=== PATIENT | female | born 1950 | race Caucasian/White ===

== ENCOUNTER 2017-02-13 11:58 | Observation (INO) | payer MEDICARE, OTHER ==
[~2017-02-13] VITALS: Ht 152.4 cm; Wt 54.6 kg
[~2017-02-13 11:58] MED LIST: OMEP20TA PO
[2017-02-13 12:30] VITALS: BP 118/74; PULSE 101; RESP 17; TEMP 98.7; O2SAT 96
[2017-02-13] MEDS: D5-1/2 NS + KCL 20 MEQ INJ 1,000 ML IV SCH (14:14)
[2017-02-13] MEDS ORDERED: NALOXONE HCL 0.4 MG/ML AMP IV PRN (14:15)
[2017-02-13] MEDS ORDERED: ONDANSETRON HCL 4 MG/2 ML VIAL IVP PRN (14:15)
[2017-02-13] MEDS ORDERED: SODIUM CHLORIDE 0.9% FLUSH 10 ML FLUSH IV FLUSH PRN (14:15)
--- NOTE | 2017-02-13 15:12 | HHI.HP ---
HPI Service [facility] Primary Care Physician Non-Staff Admission Diagnosis Diagnoses: (1) GI bleed Chief Complaint: Rectal bleeding Travel History International Travel<30 Days: No Contact w/Intl Traveler <30 Da: No Traveled to Known Affected Are: No History of Present Illness 66-year-old female with a history of anxiety, rheumatoid arthritis was seen to the hospital for direct admit by PCP who she is going to see today for evaluation of 3 day history of bright red blood per rectum, which started on 02/10/17. She described right gross rectal in her stool as well as in the bowl.. She denies any prior history of GI bleed. Patient also denies any use of NSAID. She reported mild abdominal pain and she does have a history of GERD for which she is on omeprazole. She has no complaint of shortness of breath, hematuria, hematochezia or hemoptysis. No prior history of panendoscopy Review of Systems Except as stated in HPI: all other systems reviewed are Neg Past Family Social History Past Medical History Hypertension RA Anxiety DDD Past Surgical History Breast Reduction appendectomy Abdominoplasty Reported Medications Hydrochlorothiazide Omeprazole Allergies: Coded Allergies: Adhesives (Verified Allergy, Intermediate, Rash, 02/14/17) Family History Mother from complication of Lung cancer Father had [place] Social History Denies tobacco, alcohol or illicit drug Physical Exam Vital Signs Vital Signs Date Time Temp Pulse Resp B/P Pulse Ox O2 Delivery O2 Flow Rate FiO2 02/13/17 12:30 98.7 101 17 118/74 96 Physical Exam GENERAL: This is a well-nourished, well-developed patient, in no apparent distress. SKIN: No rashes, ecchymoses or lesions. Cool and dry. HEAD: Atraumatic. Normocephalic. No temporal or scalp tenderness. EYES: Pupils equal round and reactive. Extraocular motions intact. No scleral icterus. No injection or drainage. ENT: Nose without bleeding, purulent drainage or septal hematoma. Throat without erythema, tonsillar hypertrophy or exudate. Uvula midline. Airway patent. NECK: Trachea midline. No JVD or lymphadenopathy. Supple, nontender, no meningeal signs. CARDIOVASCULAR: Regular rate and rhythm without murmurs, gallops, or rubs. RESPIRATORY: Clear to auscultation. Breath sounds equal bilaterally. No wheezes , rales, or rhonchi. GASTROINTESTINAL: Abdomen soft, non-tender, nondistended. No hepato-splenomegaly , or palpable masses. No guarding. MUSCULOSKELETAL: Extremities without clubbing, cyanosis, or edema. No joint tenderness, effusion, or edema noted. No calf tenderness. Negative Homans sign bilaterally. NEUROLOGICAL: Awake and alert. Cranial nerves II through XII intact. Motor and sensory grossly within normal limits. Five out of 5 muscle strength in all muscle groups. Normal speech. Assessment and Plan Problem List: (1) GI bleed ICD Code: K92.2 Status: Acute (2) Rectal bleeding ICD Code: K62.5 Status: Acute (3) Depression ICD Code: F32.9 Status: Chronic (4) Hypertension ICD Code: I10 Status: Chronic Assessment and Plan 66 yrs old female with GI bleeding Rectal Bleeding GI consult for evaluation for Colonoscopy +/- EGD Serial H/H monitoring PPI IV Hypertension Resume outpatient medications including hydrochlorothiazide Anxiety/depression Resume outpatient medications DVT prophylaxis: Chemical anti prophylaxis is contraindication 2/2 GI bleeding; B-SCD GI prophylaxis: PPI Check CBC, BMP Code Status Full code Discussed Condition With Patient Physician Certification 2 Midnight Certification Type: Admission for Inpatient Services Order for Inpatient Services The services are ordered in accordance with Medicare regulations or non- Medicare payer requirements, as applicable. In the case of services not specified as inpatient-only, they are appropriately provided as inpatient services in accordance with the 2-midnight benchmark. Estimated LOS (days): 2 days is the estimated time the patient will need to remain in the hospital, assuming treatment plan goals are met and no additional complications. Post-Hospital Plan: Not yet determined Diego Duncan MD Feb 13, 2017 15:12
[2017-02-13] MEDS ORDERED: TEMAZEPAM 15 MG CAP PO PRN (15:15)
[2017-02-13] MEDS ORDERED: REME15TA PO (15:27)
[2017-02-13] MEDS ORDERED: PRIL20TA2 PO (15:27)
[2017-02-13] MEDS ORDERED: CLON0.5T PO (15:27)
[2017-02-13] MEDS ORDERED: ZOLO50TA PO (15:27)
[2017-02-13] MEDS ORDERED: HYDR25TA5 PO (15:27)
--- NOTE | 2017-02-13 15:39 | PD.CONS ---
HPI History of Present Illness This is a 66 year old female who was referred by her PCP and admitted for BRBPR. 4 days ago she began having bright red blood in stool and bowl, at times blood has been dark, is intermingled in stool. She has never had this before. She admits distant hx, 40y ago hemorrhoidal bleeding right after of her son but none since. Admits occasional nausea, reflux for which she takes omeprazole, and mid abdominal pain. The abdominal pain comes and goes, is sometimes relieved after BM. Occasional loose stool. She has lost 70 lbs inthe last year but she says she has been very busy and skipping alot of meals. No vomiting, tarry stool or change in bowel habit. She has never had EGD or colonoscopy. (Indira Deluna) PFSH Past Medical History Hypertension RA severe depression anxiety DDD Past Surgical History Breast Reduction appendectomy abdominoplasty - 20y ago (Indira Deluna) Coded Allergies: Fentanyl (Verified Adverse Reaction, Severe, Anaphylaxis, 03/30/16) Family History Mother from complication of Lung cancer Father had [place] Social History Denies tobacco, alcohol or illicit drug (Indira Deluna) Review of Systems Constitutional: DENIES: Fever Eyes: DENIES: Blurred vision Ears, nose, mouth, throat: DENIES: Hearing loss Respiratory: DENIES: Cough Cardiovascular: DENIES: Chest pain Gastrointestinal: COMPLAINS OF: Abdominal pain, Bloody stools, Nausea, Heartburn, DENIES: Black stools, Constipation, Diarrhea, Vomiting, Hematemesis Genitourinary: DENIES: Hematuria Musculoskeletal: DENIES: Muscle aches Integumentary: DENIES: Abnormal pigmentation Hematologic/lymphatic: DENIES: Bruising Neurologic: DENIES: Abnormal gait Psychiatric: DENIES: Confusion (Indira Deluna) GI Exam Vitals I&O Vital Signs Date Time Temp Pulse Resp B/P Pulse Ox O2 Delivery O2 Flow Rate FiO2 02/13/17 12:30 98.7 101 17 118/74 96 Physical Examination HEENT: PERRL normocephalic; atraumatic; no jaundice. CHEST: CTA CARDIAC: RRR ABDOMEN: Soft, nondistended, nontender; no hepatosplenomegaly; bowel sounds are present in all four quadrants. EXTREMITIES: No clubbing, cyanosis, or edema. SKIN: Normal; no rash; no jaundice. MINE PATROL: No focal deficits; alert and oriented times three. (Indira Deluna) Assessment and Plan Plan ASSESSMENT - rectal bleeding - onset 4d ago red blood in stool and bowl, no prev hx GIB, never had EGD or colonoscopy. No labs available yet. - mid abd pain - unclear etiology, intermittent, at times relieved with BM, chronic. PLAN - EGD/colonoscopy - GoLytely - clears today - obtain consents - NPO after midnight - await labwork - monitor HH - further recommendations to follow This pt seen by myself and Dr Vegas and this note is written on his behalf ( Indira Deluna) Physician Comments Patient seen and examined Agree with above Continue with current supportive care Monitor labs We will plan for an EGD and a colonoscopy tomorrow (Steve Vegas MD) Indira Deluna Feb 13, 2017 15:39 Steve Vegas MD Feb 13, 2017 23:38
[2017-02-13 16:00] VITALS: BP 115/77; PULSE 68; RESP 18; TEMP 97.6; O2SAT 99
[2017-02-13] MEDS ORDERED: PEG (High)/E-LYTE SOLN 4000 ML BTL PO ONE (16:00)
[2017-02-13] MEDS ORDERED: clonazePAM 0.5 MG TAB PO PRN (16:30)
[2017-02-13] MEDS ORDERED: PILL SPLITTER OTHER PRN (17:45)
[2017-02-13] MEDS: PANTOPRAZOLE SODIUM 40 MG VIAL IV PUSH SCH (18:19)
[2017-02-13 21:00] VITALS: BP 124/78; PULSE 82; RESP 18; TEMP 98.5; O2SAT 95
[2017-02-13] MEDS: SERTRALINE HCL 50 MG TAB PO SCH (21:00)
[2017-02-13] MEDS: SODIUM CHLORIDE 0.9% FLUSH 10 ML FLUSH IV FLUSH SCH (21:18)
[2017-02-13] MEDS: ACETAMINOPHEN 325 MG TAB PO PRN (21:19)
[2017-02-13] MEDS: MIRTAZAPINE 15 MG TAB PO SCH (21:19)
[2017-02-13 22:29] LABS: REVIEW FLAG FINAL
[2017-02-14 00:30] VITALS: BP 120/75; PULSE 80; RESP 19; TEMP 98.1; O2SAT 96
[2017-02-14] MEDS: D5-1/2 NS + KCL 20 MEQ INJ 1,000 ML IV SCH ×3 (00:35→20:43)
[2017-02-14 05:00] VITALS: BP 111/55; PULSE 71; RESP 17; TEMP 98.1; O2SAT 98
[2017-02-14 07:17] LABS: AUTOMATED NEUTROPHIL # 5.1 TH/MM3 (1.8-7.7); BASOPHIL # 0.1 TH/MM3 (0-0.2); BASOPHIL % 0.7 % (0.0-2.0); EOSINOPHIL # 0.4 TH/MM3 (0-0.4); HEMATOCRIT 30.4 % (35.0-46.0); HEMO FLAGS DIFF FINAL; LYMPHOCYTE # 1.7 TH/MM3 (1.0-4.8); MEAN CELL VOLUME 89.2 FL (80.0-100.0); MEAN CORPUSCULAR HEMOGLOBIN 30.2 PG (27.0-34.0); MEAN CORPUSCULAR HGB CONC 33.8 % (32.0-36.0); MONO % 6.4 % (0.0-8.0); NEUT % 65.9 % (16.0-70.0); PLATELET COUNT 274 TH/MM3 (150-450); RED BLOOD COUNT 3.41 MIL/MM3 (4.00-5.30); RED CELL DISTRIBUTION WIDTH 16.3 % (11.6-17.2); WHITE BLOOD COUNT 7.7 TH/MM3 (4.0-11.0)
[2017-02-14 07:39] LABS: BICARBONATE 31.1 MEQ/L (21.0-32.0); POTASSIUM 3.3 MEQ/L (3.5-5.1)
[2017-02-14] MEDS: SERTRALINE HCL 50 MG TAB PO SCH ×2 (07:52→20:44)
[2017-02-14] MEDS: HYDROCHLOROTHIAZIDE 25 MG TAB PO SCH (07:53)
[2017-02-14] MEDS: SODIUM CHLORIDE 0.9% FLUSH 10 ML FLUSH IV FLUSH SCH ×2 (07:54→20:43)
[2017-02-14 08:00] VITALS: BP 101/63; PULSE 77; RESP 18; TEMP 98.2; O2SAT 98
[2017-02-14 08:25] VITALS: PULSE 77
[2017-02-14] MEDS ORDERED: PNEUMOCOCCAL POLYVALENT INJ 25 MCG/0.5 ML SYR IM ONE (10:00)
[2017-02-14] MEDS ORDERED: INFLUENZA VIRUS VACCINE (QUADRIVALENT) 0.5 ML SYR IM ONE (10:00)
--- NOTE | 2017-02-14 11:24 | HHI.PR ---
Subjective Remarks Follow-up GI bleed 02/14/17-patient seen and examined; denies any GI episodes since admission. Currently nothing by mouth pending panendoscopy. Complains of back pain Objective Vitals Vital Signs Date Time Temp Pulse Resp B/P Pulse Ox O2 Delivery O2 Flow Rate FiO2 02/14/17 08:25 77 02/14/17 08:00 98.2 77 18 101/63 98 02/14/17 05:00 98.1 71 17 111/55 98 02/14/17 00:30 98.1 80 19 120/75 96 02/13/17 21:00 98.5 82 18 124/78 95 02/13/17 16:00 97.6 68 18 115/77 99 02/13/17 12:30 98.7 101 17 118/74 96 I/O 02/13/17 02/13/17 02/13/17 02/14/17 02/14/17 02/14/17 07:00 15:00 23:00 07:00 15:00 23:00 Intake Total 1000 ml 0 ml Output Total 1 ml Balance 1000 ml -1 ml Intake Oral 1000 ml 0 ml Output Urine Total 1 ml # Voids 4 1 # Bowel Movements 8 1 Result Diagram: 02/14/17 0656 02/14/17 0656 Objective Remarks GENERAL: NAD SKIN: Warm and dry. HEAD: Normocephalic. EYES: No scleral icterus. No injection or drainage. NECK: Supple, trachea midline. No JVD or lymphadenopathy. CARDIOVASCULAR: Regular rate and rhythm without murmurs, gallops, or rubs. RESPIRATORY: Breath sounds equal bilaterally. No accessory muscle use. GASTROINTESTINAL: Abdomen soft, non-tender, nondistended. MUSCULOSKELETAL: No cyanosis, or edema. BACK: Nontender without obvious deformity. No CVA tenderness. Procedures A/P Problem List: (1) GI bleed ICD Code: K92.2 Status: Acute (2) Rectal bleeding ICD Code: K62.5 Status: Acute (3) Depression ICD Code: F32.9 Status: Chronic (4) Hypertension ICD Code: I10 Status: Chronic Assessment and Plan 66 yrs old female with GI bleeding Rectal Bleeding Appreciate input from GI who plan to do panendoscopy today 02/14/17 Serial H/H monitoring PPI IV Hypertension Continue outpatient medications including hydrochlorothiazide Anxiety/depression Continue outpatient medications Chronic pain syndrome Currently on fentanyl patch 50 g every 3 day Resume Percocet if no improvement Hypokalemia Give potassium 60 mEq 1 after GI procedure DVT prophylaxis: Chemical anti prophylaxis is contraindication 2/2 GI bleeding; B-SCD GI prophylaxis: PPI Diego Duncan MD Feb 14, 2017 11:24
[2017-02-14] MEDS ORDERED: PROPOFOL 200 MG/20 ML AMP IV ONE (13:42)
--- NOTE | 2017-02-14 13:58 | PD.PROCEDR ---
GI Procedure REFERRING PHYSICIAN Dr. Orona PROCEDURE PERFORMED EGD followed by a colonoscopy with snare polypectomy tattoo and biopsy INDICATION FOR PROCEDURE GI bleed PROCEDURE: The procedure, risks and benefits were discussed with Ms. Wang and informed consent was obtained. Anesthesia sedated her with Diprivan. She was placed in the left lateral decubitus position. EGD: The Pentax videoscope was introduced through the oropharynx and advanced to the second portion of the duodenum under direct visualization. Retroflexion was performed in the stomach. FINDINGS: The esophagus this was normal The stomach this was normal The duodenum this was normal Colonoscopy: The Pentax videoscope was introduced through the rectum and advanced to cecum where the ileocecal valve and appendiceal orifice were identified. Retroflexion was performed in the rectum. Colonic prep was fair FINDINGS: Colonic withdrawal time greater than 6 minutes as the scope was slowly withdrawn clonic mucosa was carefully inspected the patient was noted to have a fairly large sessile polyp in the distal ascending colon was excised using hot snare technique and the site was tattooed the patient was also noted to have either severe edema with compromise of the lumen or sigmoid stricture it's unclear and I don't see any active or acute inflammation biopsies were taken for further evaluation the patient was also noted to have severe diverticulosis of the sigmoid region with scattered diverticuli throughout the colon the retroflexion in rectal examination were unremarkable ESTIMATED BLOOD LOSS: None SPECIMENS REMOVED: Colon polyp COMPLICATIONS: None IMPRESSION: Normal EGD Colon polyp Sigmoid stricture Diverticulosis PLAN: Await biopsy Recommend CT of the abdomen Recommend repeat colonoscopy in 6 months Continue with current supportive care Monitor labs Steve Vegas MD Feb 14, 2017 13:58
[2017-02-14] MEDS: PANTOPRAZOLE SODIUM 40 MG VIAL IV PUSH SCH (14:39)
[2017-02-14 16:00] VITALS: BP 128/66; PULSE 72; RESP 17; TEMP 98.4; O2SAT 96
[2017-02-14 16:00] LABS: HEMATOCRIT 31.4 % (35.0-46.0); REVIEW FLAG FINAL
[2017-02-14] MEDS ORDERED: POTASSIUM CHLORIDE 10 MEQ CONTROLLED RELEASE TAB PO ONE (16:00)
[2017-02-14] MEDS ORDERED: DIATRIZOATE MEGLUM/DIATRIZOATE SOD 9 ML CUP PO ONE (19:30)
--- NOTE | 2017-02-14 20:07 | EKG ---
Date Performed: 02/14/2017 Time Performed: 11:29:31 PTAGE: 66 years EKG: Sinus rhythm BORDERLINE LEFT AXIS DEVIATION BORDERLINE ECG PREVIOUS TRACING : 10/28/2014 13.47 Compared to prior tracing no significant change DOCTOR: August Jones Interpretating Date/Time 02/14/2017 20:06:37
[2017-02-14 20:30] VITALS: BP 115/75; PULSE 69; RESP 20; TEMP 98.1; O2SAT 98
[2017-02-14] MEDS: MIRTAZAPINE 15 MG TAB PO SCH (20:44)
[2017-02-14] MEDS ORDERED: IOHEXOL 350 MG/ML 10 ML VIAL (for RAD DIAG) IV ONE (22:51)
--- NOTE | 2017-02-14 23:16 | RADRPT ---
EXAM DATE/TIME: 02/14/2017 22:46 [facility] COMPARISON: No previous studies available for comparison. INDICATIONS : Rectal bleeding. IV CONTRAST: 100 cc Omnipaque 350 (iohexol) IV ORAL CONTRAST: Prescribed oral contrast ingested. RADIATION DOSE: 6.14 CTDIvol (mGy) MEDICAL HISTORY : Cardiovascular disease. Hypertension. SURGICAL HISTORY : Appendectomy. ENCOUNTER: Initial ACUITY: 1 day PAIN SCALE: 0/10 LOCATION: abdomen TECHNIQUE: Volumetric scanning of the abdomen and pelvis was performed. Using automated exposure control and ad justment of the mA and/or kV according to patient size, radiation dose was kept as low as reasonably achievable to obtain optimal diagnostic quality images. DICOM format image data is available electro nically for review and comparison. FINDINGS: LOWER LUNGS: Atelectasis is present the lung bases. There is coronary artery calcification. LIVER: Homogeneous density without lesion. There is no dilation of the biliary tree. No calcified gallston es. SPLEEN: Normal size without lesion. PANCREAS: Within normal limits. KIDNEYS: Normal in size and shape. There is no mass, stone or hydronephrosis. ADRENAL GLANDS: Within normal limits. VASCULAR: There is no aortic aneurysm. Abdominal aorta is tortuous with moderate atherosclerotic disease. BOWEL/MESENTERY: Stomach and small bowel demonstrate no acute finding. A 15 cm length segment of descending colon demo nstrates abnormal circumferential wall thickening and pericolonic inflammation. There is sigmoid dive rticulosis. No free air or free fluid is present. ABDOMINAL WALL: Within normal limits. RETROPERITONEUM: There is no lymphadenopathy. BLADDER: No wall thickening or mass. REPRODUCTIVE: Within normal limits. INGUINAL: There is no lymphadenopathy or hernia. MUSCULOSKELETAL: There are degenerative changes of the lumbar spine with anterolisthesis of L5 on S1. CONCLUSION: 1. A 15 cm length segment of descending colon is abnormal with abnormal wall thickening and surroundi ng inflammation characteristic of a colitis. 2. Nonacute findings include sigmoid diverticulosis, moderate atherosclerotic disease, and coronary a rtery calcification. Naveed Arnold MD on February 14, 2017 at 22:58 Board Certified Radiologist. This report was verified electronically.
[2017-02-15 00:30] VITALS: BP 120/69; PULSE 65; RESP 19; TEMP 97.7; O2SAT 98
[2017-02-15 03:44] LABS: HEMATOCRIT 31.1 % (35.0-46.0); MEAN CELL VOLUME 89.2 FL (80.0-100.0); MEAN CORPUSCULAR HEMOGLOBIN 29.6 PG (27.0-34.0); MEAN CORPUSCULAR HGB CONC 33.2 % (32.0-36.0); PLATELET COUNT 281 TH/MM3 (150-450); RED BLOOD COUNT 3.48 MIL/MM3 (4.00-5.30); RED CELL DISTRIBUTION WIDTH 15.8 % (11.6-17.2); REVIEW FLAG FINAL; WHITE BLOOD COUNT 8.4 TH/MM3 (4.0-11.0)
[2017-02-15 03:45] VITALS: BP 118/70; PULSE 64; RESP 20; TEMP 98.1; O2SAT 99
[2017-02-15] MEDS: D5-1/2 NS + KCL 20 MEQ INJ 1,000 ML IV SCH ×2 (06:07→07:22)
[2017-02-15 07:19] VITALS: BP 102/56; PULSE 88; RESP 16; TEMP 99.3; O2SAT 95
[2017-02-15] MEDS: HYDROCHLOROTHIAZIDE 25 MG TAB PO SCH (07:23)
[2017-02-15] MEDS: SODIUM CHLORIDE 0.9% FLUSH 10 ML FLUSH IV FLUSH SCH (07:23)
[2017-02-15] MEDS: SERTRALINE HCL 50 MG TAB PO SCH (07:23)
[2017-02-15] MEDS: ACETAMINOPHEN 325 MG TAB PO PRN (07:23)
--- NOTE | 2017-02-15 12:26 | HHI.PR ---
Subjective Remarks Follow-up GI bleed 02/14/17-patient seen and examined; denies any GI episodes since admission. Currently nothing by mouth pending panendoscopy. Complains of back pain 02/15/17-patient seen and examined, panendoscopy was performed yesterday and patient had a normal EGD however colonoscopy with finding of diverticulosis. H& H stable and patient denies any GI bleed since admission. Objective Vitals Vital Signs Date Time Temp Pulse Resp B/P Pulse Ox O2 Delivery O2 Flow Rate FiO2 02/15/17 07:19 99.3 88 16 102/56 95 02/15/17 03:45 98.1 64 20 118/70 99 02/15/17 00:30 97.7 65 19 120/69 98 02/14/17 20:30 98.1 69 20 115/75 98 02/14/17 16:00 98.4 72 17 128/66 96 02/14/17 14:09 73 18 114/68 95 02/14/17 13:59 75 18 117/68 98 02/14/17 13:48 97.8 80 18 121/63 95 I/O 02/14/17 02/14/17 02/14/17 02/15/17 02/15/17 02/15/17 06:59 14:59 22:59 06:59 14:59 22:59 Intake Total 0 ml 900 ml 946 ml 1560 ml Output Total 1 ml Balance -1 ml 900 ml 946 ml 1560 ml Intake Oral 0 ml 800 ml 460 ml IV Total 146 ml 1100 ml Other 900 ml Output Urine Total 1 ml # Voids 1 3 0 4 # Bowel Movements 1 0 0 Result Diagram: 02/15/17 0331 02/14/17 0656 Imaging Last Impressions Abdomen/Pelvis CT 02/14/17 0000 Signed Impressions: Service Date/Time: Tuesday, February 14, 2017 22:46 - CONCLUSION: 1. A 15 cm length segment of descending colon is abnormal with abnormal wall thickening and surrounding inflammation characteristic of a colitis. 2. Nonacute findings include sigmoid diverticulosis, moderate atherosclerotic disease, and coronary artery calcification. Naveed Arnold MD Objective Remarks GENERAL: NAD SKIN: Warm and dry. HEAD: Normocephalic. EYES: No scleral icterus. No injection or drainage. NECK: Supple, trachea midline. No JVD or lymphadenopathy. CARDIOVASCULAR: Regular rate and rhythm without murmurs, gallops, or rubs. RESPIRATORY: Breath sounds equal bilaterally. No accessory muscle use. GASTROINTESTINAL: Abdomen soft, non-tender, nondistended. MUSCULOSKELETAL: No cyanosis, or edema. BACK: Nontender without obvious deformity. No CVA tenderness. Procedures Panendoscopy 02/14/17 A/P Problem List: (1) GI bleed ICD Code: K92.2 Status: Acute (2) Rectal bleeding ICD Code: K62.5 Status: Acute (3) Depression ICD Code: F32.9 Status: Chronic (4) Hypertension ICD Code: I10 Status: Chronic (5) Diverticulosis of colon without diverticulitis ICD Code: K57.30 Status: Acute (6) Diverticulosis ICD Code: K57.90 Status: Acute Assessment and Plan 66 yrs old female with GI bleeding Rectal Bleeding Appreciate input from GI Status post normal EGD, colonoscopy with finding of diverticulosis and polyps removed Serial H/H monitoring, however H&H remained stable CT abdomen noted and review PPI IV Diverticulosis Known history per patient Advise on increased fiber, stool softener Hypertension Continue outpatient medications including hydrochlorothiazide Anxiety/depression Continue outpatient medications Chronic pain syndrome Currently on fentanyl patch 50 g every 3 day Hypokalemia Resolved status post replacement DVT prophylaxis: Chemical anti prophylaxis is contraindication 2/2 GI bleeding; B-SCD GI prophylaxis: PPI Diego Duncan MD Feb 15, 2017 12:26
--- NOTE | 2017-02-15 12:32 | HHI.DS ---
Discharge Summary Admission Date Feb 13, 2017 at 14:16 Discharge Date: Feb 15, 2017 Admitting Diagnosis (1) GI bleed ICD Code: K92.2 (2) Rectal bleeding ICD Code: K62.5 (3) Depression ICD Code: F32.9 (4) Hypertension ICD Code: I10 Procedures Panendoscopy 02/14/17 Brief History - From Admission 66-year-old female with a history of anxiety, rheumatoid arthritis was seen to the hospital for direct admit by PCP who she is going to see today for evaluation of 3 day history of bright red blood per rectum, which started on 02/10/17. She described right gross rectal in her stool as well as in the bowl.. She denies any prior history of GI bleed. Patient also denies any use of NSAID. She reported mild abdominal pain and she does have a history of GERD for which she is on omeprazole. She has no complaint of shortness of breath, hematuria, hematochezia or hemoptysis. No prior history of panendoscopy CBC/BMP: 02/15/17 0331 02/14/17 0656 Significant Findings Laboratory Tests Test 02/13/17 02/14/17 02/14/17 02/15/17 21:52 06:56 15:39 03:31 Hemoglobin 10.9 GM/DL 10.3 GM/DL 10.7 GM/DL 10.3 GM/DL (11.6-15.3) (11.6-15.3) (11.6-15.3) (11.6-15.3) Hematocrit 34.0 % 30.4 % 31.4 % 31.1 % (35.0-46.0) (35.0-46.0) (35.0-46.0) (35.0-46.0) Red Blood Count 3.41 MIL/MM3 3.48 MIL/MM3 (4.00-5.30) (4.00-5.30) Eosinophils (%) (Auto) 5.0 % (0.0-4.0) Potassium Level 3.3 MEQ/L (3.5-5.1) Estimat Glomerular Filtration 71 ML/MIN (>89) Rate Imaging Last Impressions Abdomen/Pelvis CT 02/14/17 0000 Signed Impressions: Service Date/Time: Tuesday, February 14, 2017 22:46 - CONCLUSION: 1. A 15 cm length segment of descending colon is abnormal with abnormal wall thickening and surrounding inflammation characteristic of a colitis. 2. Nonacute findings include sigmoid diverticulosis, moderate atherosclerotic disease, and coronary artery calcification. Naveed Arnold MD PE at Discharge GENERAL: NAD SKIN: Warm and dry. HEAD: Normocephalic. EYES: No scleral icterus. No injection or drainage. NECK: Supple, trachea midline. No JVD or lymphadenopathy. CARDIOVASCULAR: Regular rate and rhythm without murmurs, gallops, or rubs. RESPIRATORY: Breath sounds equal bilaterally. No accessory muscle use. GASTROINTESTINAL: Abdomen soft, non-tender, nondistended. MUSCULOSKELETAL: No cyanosis, or edema. BACK: Nontender without obvious deformity. No CVA tenderness. Hospital Course Patient was admitted secondary to GI bleeds with monitoring of H&H and she was started on PPI. Gastroenterology was consulted and panendoscopy was performed. She was continued on her medication for other chronic medical conditions. DVT and GI prophylaxis were provided. Prior to discharge, patient's condition improved and vitals remained stable. Pt Condition on Discharge: Stable Discharge Disposition: Discharge Home Discharge Time: <= 30 minutes Discharge Instructions DIET: Follow Instructions for: Heart Healthy Diet Activities you can perform: Regular-No Restrictions Follow up Referrals: Gastroenterology PCP Follow-up - 1 Week Continued Medications: Clonazepam (Clonazepam) 0.5 Mg Tab 0.5 MG PO DAILY PRN ANXIETY #60 Ref 0 TAB Hydrochlorothiazide (Hydrochlorothiazide) 25 Mg Tab 20 MG PO DAILY #30 Ref 0 TAB Mirtazapine (Remeron) 15 Mg Tab 7.5 MG PO HS Depression Control #15 Ref 0 TAB Omeprazole (Omeprazole) 20 Mg Tab 20 MG PO DAILY #90 Ref 11 TAB Sertraline (Zoloft) 50 Mg Tab 50 MG PO BID #30 Ref 0 TAB Discontinued Medications: Omeprazole Magnesium (Prilosec) 20 Mg Tab 20 MG PO DAILY Diego Duncan MD Feb 15, 2017 12:32
[2017-02-15] MEDS: PANTOPRAZOLE SODIUM 40 MG VIAL IV PUSH SCH (12:54)
[2017-02-15 13:37] VITALS: BP 106/59; PULSE 92; RESP 18; TEMP 98.5; O2SAT 96
== END 2017-02-15 14:48 | disposition home or self-care (01) ==
LOC: N05A 11:58 → UNDOADMOB 11:58 → INTOOBSV 14:16 → OBSVTOIN 14:16 → N05A 02-15 10:18 → UNDODISIN 02-15 14:48
PROVIDERS: ADMIT Hospitalist; ATTEND Hospitalist
DX: K92.1 Melena (principal); K56.69 Other intestinal obstruction; I10 Essential (primary) hypertension; E87.6 Hypokalemia; G89.4 Chronic pain syndrome; K21.9 Gastro-esophageal reflux disease without esophagitis; K57.30 Diverticulosis of large intestine without perforation or abscess without bleeding; K63.5 Polyp of colon; M06.9 Rheumatoid arthritis, unspecified; F41.8 Other specified anxiety disorders; Z23 Encounter for immunization
CPT/HCPCS: 00740; 00810; 43235; 45380; 45385; 74177; 76937; 80048; 85014; 85018; 85025; 85027; 88305; 90732; 93005; C9113; G0009; G0378; J3480; Q9963; Q9967; 90471

== ENCOUNTER 2017-06-10 12:56 | Observation (INO) | payer OTHER ==
[~2017-06-10] VITALS: Ht 152.4 cm; Wt 52.0 kg
[~2017-06-10 12:56] MED LIST changes: +CLON0.5T PO; +HYDR25TA5 PO; -OMEP20TA PO; +OMEP20TA93 PO; +REME15TA PO; +ZOLO50TA PO
[2017-06-10 12:57] VITALS: BP 161/86; PULSE 116; RESP 20; TEMP 100.2; O2SAT 95
[2017-06-10] MEDS ORDERED: SODIUM CHLOR 0.9% 1000 ML INJ 1,000 ML IV SCH (13:29)
[2017-06-10] MEDS ORDERED: ONDANSETRON HCL 4 MG/2 ML VIAL IVP ONE (13:30)
--- NOTE | 2017-06-10 13:44 | PD ---
HPI Chief Complaint: Abdominal Pain Time Seen by Provider: 13:20 Travel History International Travel<30 days: No Contact w/Intl Traveler<30days: No Traveled to known affect area: No History of Present Illness HPI 67-year-old female with history of colitis in the past presents for evaluation of pelvic pain, low-grade fevers, nausea, vomiting. Symptoms started 2 days ago. Pain is crampy, constant, no aggravating or relieving factors. She reports nausea, 1 episode of emesis yesterday. She reports that she has been constipated for the past few days and yesterday took MiraLAX and magnesium citrate. This morning she had some loose stools secondary to the laxatives. She denies any recent antibiotic use, dysuria, flank pain, chest pain or shortness of breath, cough or congestion. She has no other complaints at this time. PFSH Past Medical History Asthma: No Autoimmune Disease: No Anxiety: Yes Depression: Yes Heart Rhythm Problems: No Cancer: No Cardiovascular Problems: No High Cholesterol: No Chemotherapy: No Chest Pain: Yes (Small pain around heart area a couple times a week) Congestive Heart Failure: No COPD: No Cerebrovascular Accident: No Diabetes: No Endocrine: No GERD: No Genitourinary: No Hiatal Hernia: No Hypertension: Yes Immune Disorder: No Kidney Stones: No Musculoskeletal: Yes (Feet deformity) Neurologic: No Psychiatric: Yes Reproductive: No Respiratory: No Migraines: No Radiation Therapy: No Seizures: No Sickle Cell Disease: No Sleep Apnea: Yes (" I wake the dog up") Thyroid Disease: No Ulcer: No Past Surgical History Abdominal Surgery: Yes (Apendectomy, tummy tuck) AICD: Yes Appendectomy: Yes Arteriovenous Shunt: No Cardiac Surgery: No Ear Surgery: No Endocrine Surgery: No Eye Surgery: No Genitourinary Surgery: No Gynecologic Surgery: No Joint Replacement: No Oral Surgery: No Pacemaker: No Thoracic Surgery: Yes (Epidural injection) Other Surgery: Yes (BREAST REDUCTION; TUMMY TUCK) Social History Alcohol Use: No Tobacco Use: No Substance Use: No Allergies-Medications (Allergen,Severity, Reaction): Coded Allergies: adhesive (Unverified Allergy, Intermediate, Rash, 06/10/17) Reported Meds & Prescriptions Reported Meds & Active Scripts Active Omeprazole 20 Mg Tab 20 Mg PO DAILY Reported Remeron (Mirtazapine) 15 Mg Tab 7.5 Mg PO HS Clonazepam 0.5 Mg Tab 0.5 Mg PO DAILY PRN Zoloft (Sertraline HCl) 50 Mg Tab 50 Mg PO BID Hydrochlorothiazide 25 Mg Tab 20 Mg PO DAILY Review of Systems Except as stated in HPI: all other systems reviewed are Neg Physical Exam Narrative GENERAL: Well-nourished female in no acute distress SKIN: Warm and dry. HEAD: Atraumatic. Normocephalic. EYES: Pupils equal and round. No scleral icterus. No injection or drainage. ENT: No nasal bleeding or discharge. Mucous membranes pink and moist. NECK: Trachea midline. No JVD. CARDIOVASCULAR: Regular rate and rhythm. No murmur appreciated. RESPIRATORY: No accessory muscle use. Clear to auscultation. Breath sounds equal bilaterally. GASTROINTESTINAL: Abdomen soft, mild epigastric and left upper quadrant tenderness without guarding. MUSCULOSKELETAL: No obvious deformities. No clubbing. No cyanosis. No edema. NEUROLOGICAL: Awake and alert. No obvious cranial nerve deficits. Motor grossly within normal limits. Normal speech. PSYCHIATRIC: Appropriate mood and affect; insight and judgment normal. Data Data Last Documented VS Vital Signs Date Time Temp Pulse Resp B/P (MAP) Pulse Ox O2 Delivery O2 Flow Rate FiO2 06/10/17 14:30 98 Room Air 06/10/17 12:57 100.2 116 20 Orders Orders Complete Blood Count With Diff (06/10/17 13:29) Comprehensive Metabolic Panel (06/10/17 13:29) Lipase (06/10/17 13:29) Urinalysis - C+S If Indicated (06/10/17 13:29) Ct Abd/Pel W Iv Contrast(Rout) (06/10/17 13:29) Iv Access Insert/Monitor (06/10/17 13:29) Ecg Monitoring (06/10/17 13:29) Oximetry (06/10/17 13:29) Ondansetron Inj (Zofran Inj) (06/10/17 13:30) Sodium Chlor 0.9% 1000 Ml Inj (Ns 1000 M (06/10/17 13:29) Sodium Chloride 0.9% Flush (Ns Flush) (06/10/17 13:30) Lactic Acid Sepsis Protocol (06/10/17 13:29) Blood Culture (06/10/17 13:29) Metoclopramide Inj (Reglan Inj) (06/10/17 16:00) Diphenhydramine Inj (Benadryl Inj) (06/10/17 16:00) Potassium Chloride (Kcl) (06/10/17 16:15) Iohexol 350 Inj (Omnipaque 350 Inj) (06/10/17 16:37) Levofloxacin 500 Mg Premix Inj (Levaquin (06/10/17 17:15) Metronidazole 500 Mg Inj (Flagyl 500 Mg (06/10/17 17:15) Labs Laboratory Tests Test 06/10/17 14:20 06/10/17 14:30 06/10/17 15:28 White Blood Count 11.2 TH/MM3 Red Blood Count 3.78 MIL/MM3 Hemoglobin 11.6 GM/DL Hematocrit 35.3 % Mean Corpuscular Volume 93.4 FL Mean Corpuscular Hemoglobin 30.7 PG Mean Corpuscular Hemoglobin Concent 32.9 % Red Cell Distribution Width 15.4 % Platelet Count 410 TH/MM3 Mean Platelet Volume 7.4 FL Neutrophils (%) (Auto) 80.9 % Lymphocytes (%) (Auto) 12.6 % Monocytes (%) (Auto) 5.5 % Eosinophils (%) (Auto) 0.5 % Basophils (%) (Auto) 0.5 % Neutrophils # (Auto) 9.1 TH/MM3 Lymphocytes # (Auto) 1.4 TH/MM3 Monocytes # (Auto) 0.6 TH/MM3 Eosinophils # (Auto) 0.1 TH/MM3 Basophils # (Auto) 0.1 TH/MM3 CBC Comment DIFF FINAL Differential Comment Blood Urea Nitrogen 11 MG/DL Creatinine 0.73 MG/DL Random Glucose 100 MG/DL Total Protein 6.7 GM/DL Albumin 2.7 GM/DL Calcium Level 9.4 MG/DL Alkaline Phosphatase 111 U/L Aspartate Amino Transf (AST/SGOT) 16 U/L Alanine Aminotransferase (ALT/SGPT) 20 U/L Total Bilirubin 0.3 MG/DL Sodium Level 137 MEQ/L Potassium Level 3.3 MEQ/L Chloride Level 98 MEQ/L Carbon Dioxide Level 31.7 MEQ/L Anion Gap 7 MEQ/L Estimat Glomerular Filtration Rate 80 ML/MIN Lipase 69 U/L Lactic Acid Level 0.8 mmol/L Urine Color LIGHT-YELLOW Urine Turbidity CLEAR Urine pH 7.5 Urine Specific [place] 1.012 Urine Protein NEG mg/dL Urine Glucose (UA) NEG mg/dL Urine Ketones 10 mg/dL Urine Occult Blood NEG Urine Nitrite NEG Urine Bilirubin NEG Urine Urobilinogen LESS THAN 2.0 MG/DL Urine Leukocyte Esterase NEG Urine RBC 0-3 /hpf Urine WBC 0-2 /hpf Urine Bacteria RARE /hpf Microscopic Urinalysis Comment CULT NOT INDICATED MDM Medical Decision Making Medical Screen Exam Complete: Yes Emergency Medical Condition: Yes Medical Record Reviewed: Yes Differential Diagnosis Colitis, diverticulitis, gastritis, pancreatitis, mesenteric ischemia Narrative Course Plan is for basic lab work, CT abdomen and pelvis, urinalysis. CT abdomen and pelvis reveals CONCLUSION: 1. Diverticulosis. 2. Atherosclerosis. 3. Scoliosis. 4. Abnormal inflammatory changes seen involving the large bowel greatest at the descending colon mid to distal portions with abnormal fluid-filled distended loops of large bowel extending from the transverse colon at the splenic flecture through the ascending colon. This is characteristic of colitis with an ileus pattern. The patient is febrile, tachycardic. She will be admitted. IV Levaquin, Flagyl initiated. Diagnosis Primary Impression: Colitis Admitting Information Admitting Physician Requests: Observation Josemanuel Thomas Jun 10, 2017 13:44
[2017-06-10 14:30] VITALS: O2SAT 98
[2017-06-10] MEDS: SODIUM CHLORIDE 0.9% FLUSH 10 ML FLUSH IV FLUSH PRN (15:08)
[2017-06-10 15:18] LABS: AUTOMATED NEUTROPHIL # 9.1 TH/MM3 (1.8-7.7); BASOPHIL # 0.1 TH/MM3 (0-0.2); BASOPHIL % 0.5 % (0.0-2.0); EOSINOPHIL # 0.1 TH/MM3 (0-0.4); EOSINOPHIL % 0.5 % (0.0-4.0); HEMATOCRIT 35.3 % (35.0-46.0); HEMO FLAGS DIFF FINAL; LYMPH % 12.6 % (9.0-44.0); LYMPHOCYTE # 1.4 TH/MM3 (1.0-4.8); MEAN CELL VOLUME 93.4 FL (80.0-100.0); MEAN CORPUSCULAR HEMOGLOBIN 30.7 PG (27.0-34.0); MEAN CORPUSCULAR HGB CONC 32.9 % (32.0-36.0); MONO % 5.5 % (0.0-8.0); NEUT % 80.9 % (16.0-70.0); PLATELET COUNT 410 TH/MM3 (150-450); RED BLOOD COUNT 3.78 MIL/MM3 (4.00-5.30); RED CELL DISTRIBUTION WIDTH 15.4 % (11.6-17.2); WHITE BLOOD COUNT 11.2 TH/MM3 (4.0-11.0)
[2017-06-10 15:33] LABS: ALT (GPT) 20 U/L (10-53); ANION GAP 7 MEQ/L (5-15); AST (GOT) 16 U/L (15-37); BICARBONATE 31.7 MEQ/L (21.0-32.0); BLOOD UREA NITROGEN 11 MG/DL (7-18); CHLORIDE 98 MEQ/L (98-107); GLOMERULAR FILTRATION RATE 80 ML/MIN (>89); POTASSIUM 3.3 MEQ/L (3.5-5.1); SODIUM (NA) 137 MEQ/L (136-145)
[2017-06-10 15:36] LABS: ALKALINE PHOSPHATASE 111 U/L (45-117); TOTAL BILIRUBIN ADULT 0.3 MG/DL (0.2-1.0)
[2017-06-10] MEDS ORDERED: METOCLOPRAMIDE HCL 10 MG/2 ML VIAL IV PUSH ONE (16:00)
[2017-06-10] MEDS ORDERED: diphenhydrAMINE HCL 50 MG/ML VIAL IV PUSH ONE (16:00)
[2017-06-10 16:15] LABS: BLOOD, URINE NEG (NEG); GLUCOSE,URINE NEG (NEG); KETONE, URINE 10 mg/dL (NEG); NITRITE,URINE NEG (NEG); PH, URINE 7.5 (5.0-8.5); URINE COLOR LIGHT-YELLOW (YELLW/STRAW)
[2017-06-10] MEDS ORDERED: POTASSIUM CHLORIDE 20 MEQ CONTROLLED RELEASE TAB PO ONE (16:15)
[2017-06-10] MEDS ORDERED: IOHEXOL 350 MG/ML 10 ML VIAL (for RAD DIAG) IVCONTRAST ONE (16:37)
[2017-06-10 16:40] LABS: BACTERIA, URINE RARE /hpf; COMMENT (UR) CULT NOT INDICATED; CULTURE IF INDICATED CULT NOT INDICATED; RBC, URINE 0-3 /hpf (0-3); WBC, URINE 0-2 /hpf (0-5)
--- NOTE | 2017-06-10 16:48 | RADRPT ---
EXAM DATE/TIME: 06/10/2017 16:32 This report includes an Addendum and supersedes previous reports for this exam. [facility] COMPARISON: CT ABDOMEN & PELVIS W CONTRAST, February 14, 2017, 22:46. INDICATIONS : Bilateral upper abdomen pain for three days. IV CONTRAST: 96 cc Omnipaque 350 (iohexol) IV ORAL CONTRAST: No oral contrast ingested. RADIATION DOSE: 6.11 CTDIvol (mGy) MEDICAL HISTORY : Hypertension. SURGICAL HISTORY : Appendectomy. Defibrillator. ENCOUNTER: Initial ACUITY: 3 days PAIN SCALE: 7/10 LOCATION: Bilateral upper quadrant TECHNIQUE: Volumetric scanning of the abdomen and pelvis was performed. Using automated exposure control and ad justment of the mA and/or kV according to patient size, radiation dose was kept as low as reasonably achievable to obtain optimal diagnostic quality images. DICOM format image data is available electro nically for review and comparison. FINDINGS: There is atelectasis at the lung bases. The osseous structures demonstrate moderate levoscoliosis and degenerative changes of the spine with L5 spondylolysis noted. There is coronary artery calcificatio n. Liver, spleen, pancreas, adrenal glands, kidneys are unremarkable. There is mild distention of the gallbladder. The urinary bladder is normal. Uterus is not well visualized. A small amount of free fl uid is present in the pelvis. There is diverticulosis of the sigmoid colon and descending colon. Ther e is abnormal circumferential bowel wall thickening involving the large bowel from the distal descend ing colon to mid descending colon with pericolonic stranding. There is an abnormal dilatation of larg e bowel loops involving the transverse colon through the entire ascending colon. Small bowel loops ar e decompressed. CONCLUSION: 1. Diverticulosis. 2. Atherosclerosis. 3. Scoliosis. 4. Abnormal inflammatory changes seen involving the large bowel greatest at the descending colon mid to distal portions with abnormal fluid-filled distended loops of large bowel extending from the trans verse colon at the splenic flecture through the ascending colon. This is characteristic of colitis wi th an ileus pattern. Jonathan Oneill MD on June 10, 2017 at 16:43 Board Certified Radiologist. This report was verified electronically. ADDENDUM: The examination is reevaluated for mesenteric vasculature per requesting physician. Although the exam ination is not strictly an arterial phase exam, the mesenteric vessels are sufficiently demonstrated to evaluate for gross abnormality. Celiac, SMA, and JENNIFER are grossly patent without significant stenos is or occlusion. The central inferior mesenteric and superior mesenteric veins are patent. Portal vei n is patent. No evidence for portal venous gas. Dain Pierre MD on June 11, 2017 at 8:57 Board Certified Radiologist. This report was verified electronically.
[2017-06-10] MEDS ORDERED: metroNIDAZOLE 500 MG INJ 100 ML IV ONE (17:15)
[2017-06-10] MEDS ORDERED: LEVOFLOXACIN 500 MG PREMIX INJ 100 ML IV ONE ×2 (17:15→23:00)
[2017-06-10] MEDS ORDERED: ACETAMINOPHEN 325 MG TAB PO PRN (17:45)
[2017-06-10] MEDS ORDERED: METOCLOPRAMIDE HCL 10 MG/2 ML VIAL IV PUSH PRN (17:45)
[2017-06-10] MEDS ORDERED: NALOXONE HCL 0.4 MG/ML AMP IV PUSH PRN (17:45)
[2017-06-10] MEDS ORDERED: MAGNESIUM HYDROXIDE SUSP 30 ML CUP PO PRN (17:45)
[2017-06-10] MEDS ORDERED: SENNOSIDES 8.6 MG TAB PO PRN (17:45)
[2017-06-10] MEDS ORDERED: BISACODYL 10 MG SUPP RECTAL PRN (17:45)
[2017-06-10] MEDS ORDERED: LACTULOSE SYRUP 20 GM/30 ML CUP PO PRN (17:45)
--- NOTE | 2017-06-10 18:03 | HHI.HP ---
[facility] Primary Care Physician Unknown Admission Diagnosis colitis Diagnoses: (1) Colitis Diagnosis: Principal (2) Abdominal pain Diagnosis: Principal (3) Nausea & vomiting Diagnosis: Principal Chief Complaint: Abdomina pain Travel History International Travel<30 Days: No Contact w/Intl Traveler <30 Da: No Traveled to Known Affected Are: No History of Present Illness 67-year-old female with a past medical history of hypertension, diverticulosis, GI bleed, lower back degenerative disc disease, depression, and anxiety. Patient reports that she was recently started on Questran by her primary care provider and shortly after began experiencing increased constipation. On Sunday she experienced abdominal pain along with her constipation for which she took MiraLAX which was not effective at moving her bowels. She then took magnesium citrate caused her to have loose stools, her last bowel movement was this morning, she is still passing gas. Patient reports that abdominal pain continued to get worse located around mid and lower abdomen. Currently she rates pain 6/10 with abdominal tenderness. She endorses nausea vomiting with one episode of vomiting yesterday, no chills but does admit to fever. At this time states pain is much better than what it was before and states that she is no longer nauseated since she has received nausea medication. Denies dysuria, to trouble with urination. Patient does report a history of a GI bleed or which she was hospitalized in January of this year. Patient underwent EGD which was normal, colonoscopy which showed colon polyp, sigmoid stricture, diverticulosis. Patient also underwent CT of the abdomen and pelvis during the hospitalization which demonstrated a 15 cm length segment of descending colon with abnormal wall thickening and surrounding inflammation characteristic of colitis as well as diverticulosis, atherosclerotic disease, and coronary artery calcification. She was discharged with PPI prophylaxis and recommendations repeat colonoscopy in 6 months per GI. Review of Systems Constitutional: COMPLAINS OF: Fever, Chills Gastrointestinal: COMPLAINS OF: Abdominal pain, Nausea, Vomiting Past Family Social History Past Medical History Hypertension Degenerative disc disease Anxiety Depression Diverticulosis Past Surgical History Appendectomy Bilateral breast reduction Reported Medications Reported Meds & Active Scripts Active Omeprazole 20 Mg Tab 20 Mg PO DAILY Reported Remeron (Mirtazapine) 15 Mg Tab 7.5 Mg PO HS Clonazepam 0.5 Mg Tab 0.5 Mg PO DAILY PRN Zoloft (Sertraline HCl) 50 Mg Tab 50 Mg PO BID Hydrochlorothiazide 25 Mg Tab 20 Mg PO DAILY Allergies: Coded Allergies: adhesive (Unverified Allergy, Intermediate, Rash, 06/10/17) Family History Father: Aneurysm Mother: Lung cancer (history of smoking) Social History Tobacco use: Denies Alcohol use: Denies Illicit drug use: Denies Physical Exam Vital Signs Vital Signs Date Time Temp Pulse Resp B/P (MAP) Pulse Ox O2 Delivery O2 Flow Rate FiO2 06/10/17 14:30 98 Room Air 06/10/17 12:57 100.2 116 20 161/86 (111) 95 Room Air Physical Exam GENERAL: This is a well-nourished, well-developed patient, in no apparent distress. SKIN: No rashes, ecchymoses or lesions. Cool and dry. HEAD: Atraumatic. Normocephalic. EYES: Pupils equal round and reactive. No scleral icterus. No injection or drainage. ENT: Nose without bleeding, purulent drainage or septal hematoma. Airway patent. NECK: Trachea midline. CARDIOVASCULAR: Regular rate and rhythm without murmurs, gallops, or rubs. RESPIRATORY: Clear to auscultation. Breath sounds equal bilaterally. No wheezes , rales, or rhonchi. GASTROINTESTINAL: Abdomen soft with mild distention, elicited tenderness with shallow palpation, hyperactive bowel sounds in upper quadrants and left lower quadrant, reduced bowel sounds in right lower quadrant. MUSCULOSKELETAL: Extremities without clubbing, cyanosis, or edema. No joint tenderness, effusion, or edema noted. NEUROLOGICAL: Awake and alert. Motor and sensory grossly within normal limits. Five out of 5 muscle strength in all muscle groups, moves all extremities spontaneously. Normal speech. Laboratory Laboratory Tests Test 06/10/17 14:20 06/10/17 14:30 06/10/17 15:28 White Blood Count 11.2 Red Blood Count 3.78 Hemoglobin 11.6 Hematocrit 35.3 Mean Corpuscular Volume 93.4 Mean Corpuscular Hemoglobin 30.7 Mean Corpuscular Hemoglobin Concent 32.9 Red Cell Distribution Width 15.4 Platelet Count 410 Mean Platelet Volume 7.4 Neutrophils (%) (Auto) 80.9 Lymphocytes (%) (Auto) 12.6 Monocytes (%) (Auto) 5.5 Eosinophils (%) (Auto) 0.5 Basophils (%) (Auto) 0.5 Neutrophils # (Auto) 9.1 Lymphocytes # (Auto) 1.4 Monocytes # (Auto) 0.6 Eosinophils # (Auto) 0.1 Basophils # (Auto) 0.1 CBC Comment DIFF FINAL Differential Comment Blood Urea Nitrogen 11 Creatinine 0.73 Random Glucose 100 Total Protein 6.7 Albumin 2.7 Calcium Level 9.4 Alkaline Phosphatase 111 Aspartate Amino Transf (AST/SGOT) 16 Alanine Aminotransferase (ALT/SGPT) 20 Total Bilirubin 0.3 Sodium Level 137 Potassium Level 3.3 Chloride Level 98 Carbon Dioxide Level 31.7 Anion Gap 7 Estimat Glomerular Filtration Rate 80 Lipase 69 Lactic Acid Level 0.8 Urine Color LIGHT-YELLOW Urine Turbidity CLEAR Urine pH 7.5 Urine Specific [place] 1.012 Urine Protein NEG Urine Glucose (UA) NEG Urine Ketones 10 Urine Occult Blood NEG Urine Nitrite NEG Urine Bilirubin NEG Urine Urobilinogen LESS THAN 2.0 Urine Leukocyte Esterase NEG Urine RBC 0-3 Urine WBC 0-2 Urine Bacteria RARE Microscopic Urinalysis Comment CULT NOT INDICATED Date/Time Source Procedure Growth Status 06/10/17 14:30 Blood Peripheral Aerobic Blood Culture Pending Received 06/10/17 14:30 Blood Peripheral Anaerobic Blood Culture Pending Received Result Diagram: 06/10/17 1420 06/10/17 142 Caprini VTE Risk Assessment Caprini VTE Risk Assessment: Mod/High Risk (score >= 2) Caprini Risk Assessment Model Point Value = 1 Point Value = 2 Point Value = 3 Point Value = 5 Age 41-60 Minor surgery BMI > 25 kg/m2 Swollen legs Varicose veins or History of unexplained or recurrent spontaneous Oral contraceptives or hormone replacement Sepsis (< 1 month) Serious lung disease, including pneumonia (< 1 month) Abnormal pulmonary function Acute myocardial infarction Congestive heart failure (< 1 month) History of inflammatory bowel disease Medical patient at bed rest Age 61-74 Arthroscopic surgery Major open surgery (> 45 min) Laparoscopic surgery (> 45 min) Malignancy Confined to bed (> 72 hours) Immobilizing plaster cast Central venous access Age >= 75 History of VTE Family history of VTE Factor V Leiden Prothrombin [id number] Lupus anticoagulant Anticardiolipin antibodies Elevated serum homocysteine Heparin-induced thrombocytopenia Other congenital or acquired thrombophilia Stroke (< 1 month) Elective arthroplasty Hip, pelvis, or leg fracture Acute spinal cord injury (< 1 month) Prophylaxis Regimen Total Risk Factor Score Risk Level Prophylaxis Regimen 0-1 Low Early ambulation 2 Moderate Order ONE of the following: *Sequential Compression Device (SCD) *Heparin 5000 units SQ BID 3-4 Higher Order ONE of the following medications: *Heparin 5000 units SQ TID *Enoxaparin/Lovenox 40 mg SQ daily (WT < 150 kg, CrCl > 30 mL/min) *Enoxaparin/Lovenox 30 mg SQ daily (WT < 150 kg, CrCl > 10-29 mL/min) *Enoxaparin/Lovenox 30 mg SQ BID (WT < 150 kg, CrCl > 30 mL/min) AND/OR *Sequential Compression Device (SCD) 5 or more Highest Order ONE of the following medications: *Heparin 5000 units SQ TID (Preferred with Epidurals) *Enoxaparin/Lovenox 40 mg SQ daily (WT < 150 kg, CrCl > 30 mL/min) *Enoxaparin/Lovenox 30 mg SQ daily (WT < 150 kg, CrCl > 10-29 mL/min) *Enoxaparin/Lovenox 30 mg SQ BID (WT < 150 kg, CrCl > 30 mL/min) AND *Sequential Compression Device (SCD) Assessment and Plan Problem List: (1) Nausea & vomiting ICD Code: R11.2 - Nausea with vomiting, unspecified (2) Abdominal pain ICD Code: R10.9 - Unspecified abdominal pain (3) Colitis ICD Code: K52.9 - Noninfective gastroenteritis and colitis, unspecified Status: Acute (4) Hypertension ICD Code: I10 - Essential (primary) hypertension Status: Chronic (5) Hypokalemia ICD Code: E87.6 - Hypokalemia Status: Acute Assessment and Plan 67-year-old female with a past medical history of hypertension, diverticulosis, GI bleed, lower back degenerative disc disease, depression, and anxiety. Patient recently started on Questran by PCP with increase complaints of constipation, abdominal pain, nausea and vomiting. Colitis with ileus pattern, recurrent - CT of the abdomen and pelvis showing abnormal inflammatory changes involving the large bowel greatest at the descending colon mid to distal portions with abnormal fluid-filled distended loops of the large bowel extending from the transverse colon at the splenic flexure through the ascending colon characteristic of colitis with ileus pattern. Diverticulosis, atherosclerosis, and scoliosis. - Slight increase in WBC's of 11.2 and neutrophils at 80.9, patient also with low-grade temp of 100.0 and tachycardic at heart rate of 116. - 1 time dose of Levaquin and Flagyl administered in the ED along with 1 L of normal saline. - Will continue Flagyl and change Levaquin to Cipro IV for now consider changing over to by mouth tomorrow. - Nothing by mouth for now, provide hydration with IV fluids, consider by mouth diet for tomorrow. - Reglan IV Q8hrs consider switching to PO tomorrow if tolerating, MiraLAX, and Lactulose PO. - GI consult in place, appreciate recommendations. Diverticulosis possibly secondary to constipation - Patient reports chronic use of pain medication or DDD which include oxycodone and Fentanyl patch. - We will start MiraLAX tomorrow along with stool softeners for bowel regimen. Patient had BM today with mag citrate and MiraLAX use. Nausea vomiting, secondary to abdominal pain - Patient reports improvement in abdominal pain, patient currently has Fentanyl. - Zofran PRN and Reglan scheduled. - Protonix IV added. Hypertension, elevated - Will consider restarting home dose of hydrochlorothiazide once medications are verified Hypokalemia, acute - K 3.3 ---> 40meq PO X1, labs ordered for tomorrow. VTE - SCD's, early ambulation FULL CODE Patient discussed with Asiya Arrieta Jun 10, 2017 18:03
[2017-06-10 18:50] VITALS: BP 135/71; PULSE 97; RESP 24; TEMP 99.4; O2SAT 95
[2017-06-10] MEDS: DOCUSATE SODIUM 50 MG/SENNA 8.6 MG TAB PO SCH (21:55)
[2017-06-10] MEDS: METOCLOPRAMIDE HCL 10 MG/2 ML VIAL IV PUSH SCH (21:56)
[2017-06-10] MEDS: CIPROFLOXACIN 400 MG PREMIX 200 ML IV SCH (22:08)
[2017-06-10] MEDS: metroNIDAZOLE 500 MG INJ 100 ML IV SCH (22:09)
[2017-06-10] MEDS: SODIUM CHLOR 0.9% 1000 ML INJ 1,000 ML IV SCH (22:15)
[2017-06-10 23:33] VITALS: BP 111/61; PULSE 99; RESP 18; TEMP 98.8; O2SAT 97
[2017-06-11] MEDS: METOCLOPRAMIDE HCL 10 MG/2 ML VIAL IV PUSH SCH ×3 (05:32→20:44)
[2017-06-11] MEDS: metroNIDAZOLE 500 MG INJ 100 ML IV SCH ×3 (05:32→20:46)
[2017-06-11] MEDS ORDERED: CIPROFLOXACIN 400 MG PREMIX 200 ML IV SCH (06:00)
[2017-06-11 07:38] LABS: AUTOMATED NEUTROPHIL # 9.2 TH/MM3 (1.8-7.7); BASOPHIL # 0.1 TH/MM3 (0-0.2); BASOPHIL % 0.5 % (0.0-2.0); EOSINOPHIL # 0.1 TH/MM3 (0-0.4); HEMATOCRIT 31.2 % (35.0-46.0); HEMO FLAGS DIFF FINAL; LYMPH % 13.5 % (9.0-44.0); LYMPHOCYTE # 1.6 TH/MM3 (1.0-4.8); MEAN CELL VOLUME 93.7 FL (80.0-100.0); MEAN CORPUSCULAR HEMOGLOBIN 30.2 PG (27.0-34.0); MEAN CORPUSCULAR HGB CONC 32.2 % (32.0-36.0); MONO % 5.6 % (0.0-8.0); NEUT % 79.4 % (16.0-70.0); PLATELET COUNT 386 TH/MM3 (150-450); RED BLOOD COUNT 3.32 MIL/MM3 (4.00-5.30); RED CELL DISTRIBUTION WIDTH 15.1 % (11.6-17.2); WHITE BLOOD COUNT 11.6 TH/MM3 (4.0-11.0)
[2017-06-11 08:11] LABS: ALKALINE PHOSPHATASE 90 U/L (45-117); ALT (GPT) 13 U/L (10-53); ANION GAP 5 MEQ/L (5-15); AST (GOT) 10 U/L (15-37); BICARBONATE 29.1 MEQ/L (21.0-32.0); BLOOD UREA NITROGEN 10 MG/DL (7-18); CHLORIDE 100 MEQ/L (98-107); GLOMERULAR FILTRATION RATE 80 ML/MIN (>89); POTASSIUM 4.4 MEQ/L (3.5-5.1); SODIUM (NA) 134 MEQ/L (136-145); TOTAL BILIRUBIN ADULT 0.4 MG/DL (0.2-1.0)
--- NOTE | 2017-06-11 08:31 | PD.CONS ---
HPI History of Present Illness This is a 67 year old female who was recently started on Questran by her PCP for abdominal cramping with intermittent diarrhea last week. The pain is a severe cramping in her left lower quadrant that radiates to her lower abdomen. She had associated bloating with mild nausea/vomiting. After she started the Questran, she started having constipation. After several days of not having a bowel movement, she started Miralax. She had a small bowel movement on Sunday, but still felt as though she was constipated and by Sunday, when she had not had a good bowel movement, she decided to take Magnesium Citrate. She had a good bowel movement with this and had a few loose stools on Sunday. Her abdominal pain improved after moving her bowels, but she was still having some discomfort and had a fever of 100.2 when she came to the emergency room for further evaluation. She has not recently traveled, had suspicious food, sick contacts, or used antibiotics recently. She believes that her maternal aunt and grandmother may have had inflammatory bowel disease, but she is unsure. She has lost 75 lbs in the past year. She did want to lose some weight , but has lost more than she would expect with diet alone. She underwent EGD/ Colonoscopy (02/14/17)---> EGD normal, normal EGD, Colon polyp, sigmoid stricture , diverticulosis. Pathology revealed ascending colon polyp adenomatous polyp, minimally distorted colonic mucosa with focal mucosal erosion, negative for malignancy. (Muna Moe) PFSH Past Medical History Hypertension Degenerative disc disease Anxiety/Depression Diverticulosis Multiple episodes of diverticulitis Colitis Sigmoid stricture Adenomatous polyp Past Surgical History Appendectomy Bilateral breast reduction EGD/Colonoscopy (Muna Moe) Coded Allergies: adhesive (Unverified Allergy, Intermediate, Rash, 06/10/17) Medications Allergies Coded Allergies Type Severity Reaction Last Updated Verified adhesive Allergy Intermediate Rash 06/10/17 No Active Scripts Medications Dose Route/Sig Max Daily Dose Days Date Category Remeron (Mirtazapine) 15 Mg Tab 7.5 Mg PO HS 02/13/17 Reported Clonazepam 0.5 Mg Tab 0.5 Mg PO DAILY PRN 02/13/17 Reported Zoloft (Sertraline HCl) 50 Mg Tab 50 Mg PO BID 02/13/17 Reported Hydrochlorothiazide 25 Mg Tab 20 Mg PO DAILY 02/13/17 Reported Omeprazole 20 Mg Tab 20 Mg PO DAILY 01/18/17 Rx Family History Father from Aneurysm Mother from Lung cancer (history of smoking) Possible ibd in MGM, Maternal aunt Social History Tobacco use: Denies Alcohol use: Denies Illicit drug use: Denies (Muna Moe CORBY) Review of Systems Constitutional: COMPLAINS OF: Fatigue, Fever, Weight loss, Chills Respiratory: DENIES: Cough Cardiovascular: DENIES: Chest pain Gastrointestinal: COMPLAINS OF: Abdominal pain, Constipation, Diarrhea, Nausea , Vomiting, Swelling of Abdomen, DENIES: Black stools, Bloody stools Musculoskeletal: COMPLAINS OF: Back pain Hematologic/lymphatic: DENIES: Bruising Neurologic: COMPLAINS OF: Headache Psychiatric: COMPLAINS OF: Anxiety, Depression, DENIES: Confusion (Muna Moe CORBY) GI Exam Vitals I&O Vital Signs Date Time Temp Pulse Resp B/P (MAP) Pulse Ox O2 Delivery O2 Flow Rate FiO2 06/10/17 23:33 98.8 99 18 111/61 (78) 97 06/10/17 18:50 99.4 97 24 135/71 (92) 95 06/10/17 18:23 06/10/17 14:30 98 Room Air 06/10/17 12:57 100.2 116 20 161/86 (111) 95 Room Air I/O 06/10/17 06/10/17 06/10/17 06/11/17 06/11/17 06/11/17 07:00 15:00 23:00 07:00 15:00 23:00 Intake Total 1000 ml Balance 1000 ml Intake IV Total 1000 ml Imaging Last Impressions Abdomen/Pelvis CT 06/10/17 [id number] Signed Impressions: Service Date/Time: Saturday, June 10, 2017 16:32 - CONCLUSION: 1. Diverticulosis. 2. Atherosclerosis. 3. Scoliosis. 4. Abnormal inflammatory changes seen involving the large bowel greatest at the descending colon mid to distal portions with abnormal fluid-filled distended loops of large bowel extending from the transverse colon at the splenic flecture through the ascending colon. This is characteristic of colitis with an ileus pattern. Jonathan Oneill MD Laboratory Test 06/10/17 14:20 06/10/17 14:30 06/10/17 15:28 06/11/17 06:20 White Blood Count 11.2 TH/MM3 11.6 TH/MM3 Red Blood Count 3.78 MIL/MM3 3.32 MIL/MM3 Hemoglobin 11.6 GM/DL 10.0 GM/DL Hematocrit 35.3 % 31.2 % Mean Corpuscular Volume 93.4 FL 93.7 FL Mean Corpuscular Hemoglobin 30.7 PG 30.2 PG Mean Corpuscular Hemoglobin Concent 32.9 % 32.2 % Red Cell Distribution Width 15.4 % 15.1 % Platelet Count 410 TH/MM3 386 TH/MM3 Mean Platelet Volume 7.4 FL 7.4 FL Neutrophils (%) (Auto) 80.9 % 79.4 % Lymphocytes (%) (Auto) 12.6 % 13.5 % Monocytes (%) (Auto) 5.5 % 5.6 % Eosinophils (%) (Auto) 0.5 % 1.0 % Basophils (%) (Auto) 0.5 % 0.5 % Neutrophils # (Auto) 9.1 TH/MM3 9.2 TH/MM3 Lymphocytes # (Auto) 1.4 TH/MM3 1.6 TH/MM3 Monocytes # (Auto) 0.6 TH/MM3 0.6 TH/MM3 Eosinophils # (Auto) 0.1 TH/MM3 0.1 TH/MM3 Basophils # (Auto) 0.1 TH/MM3 0.1 TH/MM3 CBC Comment DIFF FINAL DIFF FINAL Differential Comment Blood Urea Nitrogen 11 MG/DL 10 MG/DL Creatinine 0.73 MG/DL 0.73 MG/DL Random Glucose 100 MG/DL 77 MG/DL Total Protein 6.7 GM/DL 5.8 GM/DL Albumin 2.7 GM/DL 2.2 GM/DL Calcium Level 9.4 MG/DL 8.7 MG/DL Alkaline Phosphatase 111 U/L 90 U/L Aspartate Amino Transf (AST/SGOT) 16 U/L 10 U/L Alanine Aminotransferase (ALT/SGPT) 20 U/L 13 U/L Total Bilirubin 0.3 MG/DL 0.4 MG/DL Sodium Level 137 MEQ/L 134 MEQ/L Potassium Level 3.3 MEQ/L 4.4 MEQ/L Chloride Level 98 MEQ/L 100 MEQ/L Carbon Dioxide Level 31.7 MEQ/L 29.1 MEQ/L Anion Gap 7 MEQ/L 5 MEQ/L Estimat Glomerular Filtration Rate 80 ML/MIN 80 ML/MIN Lipase 69 U/L Lactic Acid Level 0.8 mmol/L Urine Color LIGHT-YELLOW Urine Turbidity CLEAR Urine pH 7.5 Urine Specific Daz[place] 1.012 Urine Protein NEG mg/dL Urine Glucose (UA) NEG mg/dL Urine Ketones 10 mg/dL Urine Occult Blood NEG Urine Nitrite NEG Urine Bilirubin NEG Urine Urobilinogen LESS THAN 2.0 MG/DL Urine Leukocyte Esterase NEG Urine RBC 0-3 /hpf Urine WBC 0-2 /hpf Urine Bacteria RARE /hpf Microscopic Urinalysis Comment CULT NOT INDICATED Date/Time Source Procedure Growth Status 06/10/17 14:30 Blood Peripheral Aerobic Blood Culture Pending Received 06/10/17 14:30 Blood Peripheral Anaerobic Blood Culture Pending Received Physical Examination HEENT: Normocephalic; atraumatic; no jaundice. CHEST: CTA CARDIAC: RRR ABDOMEN: Soft, nondistended, mild LLQ tenderness; no hepatosplenomegaly; bowel sounds are present in all four quadrants. EXTREMITIES: No clubbing, cyanosis, or edema. SKIN: Normal; no rash; no jaundice. RESEARCH PHYSICIST: No focal deficits; alert and oriented times three. (Muna Moe) Assessment and Plan Plan ASSESSMENT: - Colitis, diffuse. CT Scan abdomen and pelvis (06/10/17)----> Diverticulosis, atherosclerosis, scoliosis, abnormal inflammatory changes seen involving the large bowel greatest at the descending colon mid to distal portions with abnormal fluid-filled distended loops of large bowel extending from the transverse colon at the splenic flexure through the ascending colon, characteristic of colitis with an ileus pattern. She was evaluated with EGD/Colonoscopy (02/14/17)---> EGD normal, normal EGD, Colon polyp, sigmoid stricture, diverticulosis. Pathology revealed ascending colon polyp adenomatous polyp, minimally distorted colonic mucosa with focal mucosal erosion, negative for malignancy. (+) Intermittent diarrhea, (+) Wt. Loss 75 lbs in past year, (+) fever 100.2. Will ask radiology to reconstruct CT of abdomen and pelvis to evaluate the vasculature system. Stool studies. Colonoscopy in am. - Leukocytosis, mild. 11.6. - Anemia. 10.0/31.2. - Depression, Anxiety, HTN per attending. PLAN: - Plan for colonoscopy in am - Obtain consents - Clear liquids - NPO after MN - Ask radiology to reconstruct CT abdomen/pelvis to evaluate vasculature system - Stool studies CDiff, O&P, Giardia, C/S, WBC - PPI - Flagyl, Cipro - Supportive care - Further recommendations to follow based on results of above - Pt seen and examined by Dr. Escoto and myself and this note is written on his behalf (Muna Moe) Physician Comments Seen and examined with CORBY, stool studies and repeat colonoscopy ordered for tomorrow. ? IBD. Will follow, thank you (Lucita Escoto MD) Muna Moe Jun 11, 2017 08:31 Lucita Escoto MD Jun 11, 2017 15:13
[2017-06-11] MEDS: DOCUSATE SODIUM 50 MG/SENNA 8.6 MG TAB PO SCH ×2 (09:00→20:44)
[2017-06-11 09:07] VITALS: BP 113/58; PULSE 89; RESP 16; TEMP 98.5; O2SAT 93
[2017-06-11] MEDS: CIPROFLOXACIN 400 MG PREMIX 200 ML IV SCH ×2 (11:07→20:45)
[2017-06-11] MEDS: POLYETHYLENE GLYCOL 17 GM PKG PO SCH (11:07)
[2017-06-11] MEDS: PANTOPRAZOLE SOD 40 MG DELAYED RELEASE TAB PO SCH (11:08)
[2017-06-11] MEDS: SODIUM CHLOR 0.9% 1000 ML INJ 1,000 ML IV SCH ×2 (11:09→14:00)
[2017-06-11 13:21] LABS: C. DIFF EPI 027 PRESUMPTIVE NEGATIVE (NEGATIVE)
[2017-06-11] MEDS: SODIUM CHLORIDE 0.9% FLUSH 10 ML FLUSH IV FLUSH PRN (13:55)
--- NOTE | 2017-06-11 14:45 | HHI.PR ---
"Subjective Remarks Still having abdominal discomfort/pain 4 out of 10 no nausea or vomiting, he did have a bowel movement today, temperature 100.2 overnight Objective Vitals Vital Signs Date Time Temp Pulse Resp B/P (MAP) Pulse Ox O2 Delivery O2 Flow Rate FiO2 06/11/17 09:07 98.5 89 16 113/58 (76) 93 06/10/17 23:33 98.8 99 18 111/61 (78) 97 06/10/17 18:50 99.4 97 24 135/71 (92) 95 06/10/17 18:23 I/O 06/10/17 06/10/17 06/10/17 06/11/17 06/11/17 06/11/17 07:00 15:00 23:00 07:00 15:00 23:00 Intake Total 1000 ml 200 ml Balance 1000 ml 200 ml Intake IV Total 1000 ml 200 ml # Voids 1 # Bowel Movements 1 Result Diagram: 06/11/1720 06/11/17619 Objective Remarks GENERAL: This is a well-nourished, well-developed patient, in no apparent distress. SKIN: No rashes, warm and dry HEAD: Atraumatic. Normocephalic. EYES: Pupils equal round and reactive. Extraocular motions intact. No scleral icterus. ENT: Nose without bleeding, or drainage, Airway patent. NECK: Trachea midline. Supple CARDIOVASCULAR: Regular rate and rhythm without murmurs, gallops, or rubs. RESPIRATORY: Fair air entry bilaterally. No wheezes, rales, or rhonchi. GASTROINTESTINAL: Abdomen soft, | her to palpation mostly on the center and left abdomen, nondistended. Positive bowel sounds MUSCULOSKELETAL: Extremities without clubbing, cyanosis, or edema. Pedal pulses appreciated NEUROLOGICAL: Awake and alert. Moves all extremity. Normal speech.no focal neurological deficit A/P Problem List: (1) Nausea & vomiting ICD Code: R11.2 - Nausea with vomiting, unspecified (2) Abdominal pain ICD Code: R10.9 - Unspecified abdominal pain (3) Colitis ICD Code: K52.9 - Noninfective gastroenteritis and colitis, unspecified Status: Acute (4) Hypertension ICD Code: I10 - Essential (primary) hypertension Status: Chronic (5) Hypokalemia ICD Code: E87.6 - Hypokalemia Status: Acute Assessment and Plan 06/11: Appreciate GI consultation plan for colonoscopy in a.m., I will hold HCTZ for now and monitor blood pressure A/P: 67-year-old female with a past medical history of hypertension, diverticulosis, GI bleed, lower back degenerative disc disease, depression, and anxiety. Patient recently started on Questran by PCP with increase complaints of constipation, abdominal pain, nausea and vomiting. Colitis with ileus pattern, recurrent - CT of the abdomen and pelvis showing abnormal inflammatory changes involving the large bowel greatest at the descending colon mid to distal portions with abnormal fluid-filled distended loops of the large bowel extending from the transverse colon at the splenic flexure through the ascending colon characteristic of colitis with ileus pattern. Diverticulosis, atherosclerosis, and scoliosis. - Slight increase in WBC's of 11.2 and neutrophils at 80.9, patient also with low-grade temp of 100.0 and tachycardic at heart rate of 116. - 1 time dose of Levaquin and Flagyl administered in the ED along with 1 L of normal saline. - Will continue Flagyl and change Levaquin to Cipro IV for now consider changing over to by mouth tomorrow. - Nothing by mouth for now, provide hydration with IV fluids, consider by mouth diet for tomorrow. - Reglan IV Q8hrs consider switching to PO tomorrow if tolerating, MiraLAX, and Lactulose PO. - GI consult in place, appreciate recommendations. Diverticulosis possibly secondary to constipation - Patient reports chronic use of pain medication or DDD which include oxycodone and Fentanyl patch. - We will start MiraLAX tomorrow along with stool softeners for bowel regimen. Patient had BM today with mag citrate and MiraLAX use. Nausea vomiting, secondary to abdominal pain - Patient reports improvement in abdominal pain, patient currently has Fentanyl. - Zofran PRN and Reglan scheduled. - Protonix IV added. Hypertension, -Blood pressure within normal limits with no coverage, will monitor for now Hypokalemia, acute -Improved, replete and monitor VTE - SCD's, early ambulation Arnav Villarreal MD Jun 11, 2017 14:45"
[2017-06-11] MEDS ORDERED: PEG (High)/E-LYTE SOLN 4000 ML BTL PO ONE (16:00)
[2017-06-11 16:44] VITALS: BP 135/84; PULSE 92; RESP 16; TEMP 98; O2SAT 98
[2017-06-11 20:32] VITALS: BP 126/68; PULSE 85; RESP 18; TEMP 99.4; O2SAT 97
[2017-06-11 23:39] VITALS: BP 100/60; PULSE 82; RESP 18; TEMP 97.7; O2SAT 92
[2017-06-12 03:14] VITALS: BP 129/61; PULSE 68; RESP 16; TEMP 98.2; O2SAT 94
[2017-06-12] MEDS: SODIUM CHLOR 0.9% 1000 ML INJ 1,000 ML IV SCH ×2 (04:37→10:00)
[2017-06-12] MEDS: metroNIDAZOLE 500 MG INJ 100 ML IV SCH ×2 (04:38→12:18)
[2017-06-12] MEDS: METOCLOPRAMIDE HCL 10 MG/2 ML VIAL IV PUSH SCH ×2 (05:49→15:12)
[2017-06-12] MEDS ORDERED: METOPROLOL TARTRATE 25 MG TAB PO PRN (06:00)
[2017-06-12] MEDS ORDERED: LACTATED RINGER'S 1000 ML IV PRN (06:00)
[2017-06-12] MEDS ORDERED: POVIDONE IODINE 5% (ANTISEPSIS KIT) 4 APPLICATIONS EACH NARE PRN (06:00)
[2017-06-12] MEDS ORDERED: SODIUM CHLORID 0.9% 500 ML IV PRN (06:00)
[2017-06-12] MEDS ORDERED: CHLORHEXIDINE GLUCONATE 2 % 1 PACK (2 CLOTHS) TOPICAL PRN (06:00)
[2017-06-12 06:31] LABS: AUTOMATED NEUTROPHIL # 4.6 TH/MM3 (1.8-7.7); BASOPHIL % 0.5 % (0.0-2.0); EOSINOPHIL # 0.1 TH/MM3 (0-0.4); EOSINOPHIL % 1.6 % (0.0-4.0); HEMO FLAGS DIFF FINAL; LYMPH % 18.7 % (9.0-44.0); LYMPHOCYTE # 1.2 TH/MM3 (1.0-4.8); MEAN CELL VOLUME 93.3 FL (80.0-100.0); MEAN CORPUSCULAR HEMOGLOBIN 31.5 PG (27.0-34.0); MEAN CORPUSCULAR HGB CONC 33.8 % (32.0-36.0); NEUT % 72.2 % (16.0-70.0); PLATELET COUNT 295 TH/MM3 (150-450); RED CELL DISTRIBUTION WIDTH 14.9 % (11.6-17.2); WHITE BLOOD COUNT 6.3 TH/MM3 (4.0-11.0)
[2017-06-12 06:50] LABS: BICARBONATE 27.6 MEQ/L (21.0-32.0); POTASSIUM 3.7 MEQ/L (3.5-5.1)
[2017-06-12 07:52] VITALS: BP 128/62; PULSE 76; RESP 16; TEMP 98.5; O2SAT 95
[2017-06-12] MEDS: CIPROFLOXACIN 400 MG PREMIX 200 ML IV SCH (08:38)
[2017-06-12] MEDS: PANTOPRAZOLE SOD 40 MG DELAYED RELEASE TAB PO SCH (08:38)
[2017-06-12] MEDS: DOCUSATE SODIUM 50 MG/SENNA 8.6 MG TAB PO SCH (08:40)
[2017-06-12] MEDS: POLYETHYLENE GLYCOL 17 GM PKG PO SCH (08:40)
[2017-06-12 11:29] VITALS: BP 139/66; PULSE 79; RESP 16; TEMP 97.1; O2SAT 98
--- NOTE | 2017-06-12 11:36 | GIPROC ---
[facility] [address] [facility]. [facility] [place], [address] COLONOSCOPY PROCEDURE REPORT EXAM DATE: 06/12/2017 PATIENT NAME: Maya Wang MR #: [id number] BIRTHDATE: 1950 ENDOSCOPIST: Lucita Escoto MD ORDER #: [id number] SANDING MACHINE BUFFER: Grayson Garcia and Kirsten Lang STATUS: inpatient INDICATIONS: The patient is a 67 yr old female here for a colonoscopy due to chronic diarrhea and abdominal pain PROCEDURE PERFORMED: Colonoscopy with biopsy MEDICATIONS: None and Per Anesthesia. PREP QUALITY: [facility] Bowel Prep Score was Right colon 2, Mid colon 2, and Left colon 2. Total = 6. PREP TYPE:GoLytely ESTIMATED BLOOD LOSS: None CONSENT: The patient understands the risks and benefits of the procedure and understands that these risks include, but are not limited to: sedation, allergic reaction, infection, perforation and/or bleeding. Alternative means of evaluation and treatment include, among others: physical exam, x-rays, and/or surgical intervention. The patient elects to proceed with this endoscopic procedure. medical equipment was checked for proper function. Hand hygiene and appropriate measures for infection prevention was taken. After the risks, benefits and alternatives of the procedure were thoroughly explained, Informed consent was verified, confirmed and timeout was successfully executed by the treatment team. A digital exam revealed external hemorrhoids The Pentax [id number] endoscope was introduced through the anus and advanced to the cecum, which was identified by both the appendix and ileocecal valve. The instrument was then slowly withdrawn as the colon was fully examined. COLON FINDINGS: Severe diverticulosis was noted in the sigmoid colon. No bleeding was noted from the diverticulosis. Two polypoid shaped sessile polyps ranging between 3-7mm in size were found in the transverse colon. Multiple biopsies were performed using cold forceps. A circumferential patch of colitis was found in the descending colon and sigmoid colon. The mucosa was edematous and erythematous. A biopsy was performed using cold forceps. Retroflexed views revealed internal hemorrhoids and Retroflexed views revealed medium internal hemorrhoids The scope was then completely withdrawn from the patient and the procedure terminated. PROCEDURE WITHDRAWAL TIME:7minutes ADVERSE EVENTS: There were no complications. IMPRESSIONS: 1. Severe diverticulosis was noted in the sigmoid colon 2. Two sessile polyps ranging between 3-7mm in size were found in the transverse colon; multiple biopsies were performed using cold forceps 3. Circumferential colitis was found in the descending colon and sigmoid colon; The mucosa was edematous and erythematous; biopsy was performed using cold forceps 4. Retroflexed views revealed internal hemorrhoids 5. Retroflexed views revealed medium internal hemorrhoids 6. Revealed external hemorrhoids RECOMMENDATIONS: 1. Await biopsy results. Biopsy results will not be ready for 7-10 days. If you don't hear from us in two weeks, call our office for results. 2. Continue surveillance 3. High fiber diet 4. Yearly hemoccult RECALL: Return 6 months Colonoscopy, pending biopsy results Lucita Escoto MD eSigned: Lucita Escoto MD 06/12/2017 11:36 AM cc: PATIENT NAME: Maya Wang MR#: [id number]
--- NOTE | 2017-06-12 12:39 | HHI.PR ---
"Subjective Remarks patient still having abdominal pain 6 out of 10, she just had a colonoscopy which showed polyp diverticulosis and colitis Objective Vitals Vital Signs Date Time Temp Pulse Resp B/P (MAP) Pulse Ox O2 Delivery O2 Flow Rate FiO2 06/12/17 11:29 97.1 79 16 139/66 (90) 98 06/12/17 07:52 98.5 76 16 128/62 (84) 95 06/12/17 03:14 98.2 68 16 129/61 (83) 94 06/11/17 23:39 97.7 82 18 100/60 (73) 92 06/11/17 20:32 99.4 85 18 126/68 (87) 97 06/11/17 16:44 98.0 92 16 135/84 (101) 98 I/O 06/11/17 06/11/17 06/11/17 06/12/17 06/12/17 06/12/17 06:59 14:59 22:59 06:59 14:59 22:59 Intake Total 200 ml 100 ml 700 ml Balance 200 ml 100 ml 700 ml Intake IV Total 200 ml 100 ml 200 ml Other 500 ml # Voids 1 # Bowel Movements 1 7 Result Diagram: 06/12/17 0600 06/12/17 0600 Objective Remarks GENERAL: This is a well-nourished, well-developed patient, in no apparent distress. SKIN: No rashes, warm and dry HEAD: Atraumatic. Normocephalic. EYES: Pupils equal round and reactive. Extraocular motions intact. No scleral icterus. ENT: Nose without bleeding, or drainage, Airway patent. NECK: Trachea midline. Supple CARDIOVASCULAR: Regular rate and rhythm without murmurs, gallops, or rubs. RESPIRATORY: Fair air entry bilaterally. No wheezes, rales, or rhonchi. GASTROINTESTINAL: Abdomen soft, | her to palpation mostly on the center and left abdomen, nondistended. Positive bowel sounds MUSCULOSKELETAL: Extremities without clubbing, cyanosis, or edema. Pedal pulses appreciated NEUROLOGICAL: Awake and alert. Moves all extremity. Normal speech.no focal neurological deficit A/P Problem List: (1) Nausea & vomiting ICD Code: R11.2 - Nausea with vomiting, unspecified (2) Abdominal pain ICD Code: R10.9 - Unspecified abdominal pain (3) Colitis ICD Code: K52.9 - Noninfective gastroenteritis and colitis, unspecified Status: Acute (4) Hypertension ICD Code: I10 - Essential (primary) hypertension Status: Chronic (5) Hypokalemia ICD Code: E87.6 - Hypokalemia Status: Acute Assessment and Plan 06/11: Appreciate GI consultation plan for colonoscopy in a.m., I will hold HCTZ for now and monitor blood pressure 06/12: Still having abdominal pain 6 out of 10, just had a colonoscopy which showed 1 polyps, diverticulosis severe, colitis, GI following, continue iv fluid , Cipro Flagyl, advance diet per GI A/P: 67-year-old female with a past medical history of hypertension, diverticulosis, GI bleed, lower back degenerative disc disease, depression, and anxiety. Patient recently started on Questran by PCP with increase complaints of constipation, abdominal pain, nausea and vomiting. Colitis with ileus pattern, recurrent - CT of the abdomen and pelvis showing abnormal inflammatory changes involving the large bowel greatest at the descending colon mid to distal portions with abnormal fluid-filled distended loops of the large bowel extending from the transverse colon at the splenic flexure through the ascending colon characteristic of colitis with ileus pattern. Diverticulosis, atherosclerosis, and scoliosis. - Slight increase in WBC's of 11.2 and neutrophils at 80.9, patient also with low-grade temp of 100.0 and tachycardic at heart rate of 116. - 1 time dose of Levaquin and Flagyl administered in the ED along with 1 L of normal saline. - Will continue Flagyl and change Levaquin to Cipro IV for now consider changing over to by mouth tomorrow. - Nothing by mouth for now, provide hydration with IV fluids, consider by mouth diet for tomorrow. - Reglan IV Q8hrs consider switching to PO tomorrow if tolerating, MiraLAX, and Lactulose PO. - GI consult in place, appreciate recommendations. Diverticulosis possibly secondary to constipation - Patient reports chronic use of pain medication or DDD which include oxycodone and Fentanyl patch. - We will start MiraLAX tomorrow along with stool softeners for bowel regimen. Patient had BM today with mag citrate and MiraLAX use. Nausea vomiting, secondary to abdominal pain - Patient reports improvement in abdominal pain, patient currently has Fentanyl. - Zofran PRN and Reglan scheduled. - Protonix IV added. Hypertension, -Blood pressure within normal limits with no coverage, will monitor for now Hypokalemia, acute -Improved, replete and monitor VTE - SCD's, early ambulation Arnav Villarreal MD Jun 12, 2017 12:39"
[2017-06-12] MEDS ORDERED: METR-1 PO (15:23)
[2017-06-12] MEDS ORDERED: CIPR500T2 PO (15:23)
[2017-06-12] MEDS ORDERED: HYDR-3516 PO (15:24)
--- NOTE | 2017-06-12 15:25 | HHI.DCPOC ---
Discharge Care Plan Diagnosis: (1) Colitis (2) Abdominal pain Goals to Promote Your Health * To prevent worsening of your condition and complications * To maintain your health at the optimal level Directions to Meet Your Goals Take your medications as prescribed Follow your dietary instruction Follow activity as directed Keep your appointments as scheduled Take your immunizations and boosters as scheduled If your symptoms worsen call your PCP, if no PCP go to Urgent Care Center or Emergency Room Smoking is Dangerous to Your Health. Avoid second hand smoke Call the 24-hour hour crisis hotline for domestic abuse at Dina Roberson PA-C Jun 12, 2017 3:25 pm
== END 2017-06-12 16:00 | disposition home or self-care (01) ==
LOC: NEPC 12:56 → NEDA 17:25 → NEPGCP 18:42
PROVIDERS: ADMIT Hospitalist; ATTEND Hospitalist
DX: K52.9 Noninfective gastroenteritis and colitis, unspecified (principal); K59.00 Constipation, unspecified; K57.30 Diverticulosis of large intestine without perforation or abscess without bleeding; D12.3 Benign neoplasm of transverse colon; D12.2 Benign neoplasm of ascending colon; D64.9 Anemia, unspecified; K64.4 Residual hemorrhoidal skin tags; K64.8 Other hemorrhoids; I10 Essential (primary) hypertension; E87.6 Hypokalemia; K56.7 Ileus, unspecified; M51.36 Other intervertebral disc degeneration, lumbar region; F32.9 Major depressive disorder, single episode, unspecified; I25.10 Atherosclerotic heart disease of native coronary artery without angina pectoris; F41.9 Anxiety disorder, unspecified; R00.0 Tachycardia, unspecified; Z79.899 Other long term (current) drug therapy; M41.9 Scoliosis, unspecified; I70.90 Unspecified atherosclerosis; M43.06 Spondylolysis, lumbar region; G47.30 Sleep apnea, unspecified
CPT/HCPCS: 00810; 45380; 74177; 80048; 80053; 81001; 83605; 83690; 84443; 85025; 87040; 87205; 87328; 87329; 87493; 87506; 88305; 96361; 96365; 96366; 96367; 96368; 96375; 96376; 97163; 99285; G0378; G8987; G8988; J0744; J1200; J1956; J2405; J2765; J7030; Q9967

== ENCOUNTER 2017-09-16 12:58 | Emergency (ER) | payer MEDICARE, MEDICAID ==
[~2017-09-16] VITALS: Ht 152.4 cm; Wt 52.0 kg
[~2017-09-16 12:58] MED LIST changes: +CIPR500T2 PO; +HYDR-3516 PO; +METR-1 PO
[2017-09-16 13:00] VITALS: BP 176/74; PULSE 87; RESP 12; TEMP 98.2; O2SAT 100
--- NOTE | 2017-09-16 13:08 | PD ---
HPI Chief Complaint: Fall Time Seen by Provider: 13:07 Travel History International Travel<30 days: No Contact w/Intl Traveler<30days: No Traveled to known affect area: No History of Present Illness HPI 67-year-old female presents emergency department for evaluation of right hip pain. Patient had a slip and fall last evening. She landed on her right hip. She is unable to get up by herself. Today with any attempted ambulation, she has significant pain on the posterior right hip. She has needed help to get from sitting to standing. It is very painful when she tries to walk. Rates it an 8 out of 10, constant with walking. Much less when sitting and not moving. She has no other symptoms to report at this time. PFSH Past Medical History Asthma: No Autoimmune Disease: No Anxiety: Yes Depression: Yes Heart Rhythm Problems: No Cancer: No Cardiovascular Problems: No High Cholesterol: No Chemotherapy: No Chest Pain: Yes (Small pain around heart area a couple times a week) Congestive Heart Failure: No COPD: No Cerebrovascular Accident: No Diabetes: No Diminished Hearing: No Endocrine: No Gastrointestinal Disorders: Yes (Diverticulitis, colitis) GERD: No Genitourinary: No Headaches: No Hiatal Hernia: No Heparin Induced Thrombocytopen: No Hypertension: Yes Immune Disorder: No Implanted Vascular Access Dvce: No Kidney Stones: No Musculoskeletal: Yes (Feet deformity) Neurologic: No Psychiatric: Yes Reproductive: No Respiratory: No Migraines: No Radiation Therapy: No Seizures: No Sickle Cell Disease: No Sleep Apnea: Yes (" I wake the dog up") Thyroid Disease: No Ulcer: No Past Surgical History Abdominal Surgery: Yes (Apendectomy, tummy tuck) AICD: Yes Appendectomy: Yes Arteriovenous Shunt: No Cardiac Surgery: No Ear Surgery: No Endocrine Surgery: No Eye Surgery: No Genitourinary Surgery: No Gynecologic Surgery: No Joint Replacement: No Neurologic Surgery: No Oral Surgery: No Pacemaker: No Thoracic Surgery: Yes (Epidural injection) Other Surgery: Yes (BREAST REDUCTION; TUMMY TUCK) Social History Alcohol Use: No Tobacco Use: No Substance Use: No Allergies-Medications (Allergen,Severity, Reaction): Coded Allergies: adhesive (Unverified Allergy, Intermediate, Rash, 06/10/17) Reported Meds & Prescriptions Reported Meds & Active Scripts Active Colace (Docusate Sodium) 100 Mg Capsule 100 Mg PO BID 3 Days Ibuprofen 600 Mg Tab 600 Mg PO Q8H PRN [place] (Hydrocodone-Acetaminophen) 5 Mg-325 Mg Tab 1 Tab PO Q6H PRN Omeprazole 20 Mg Tab 20 Mg PO DAILY Reported Zyban ER 12 HR (Bupropion HCl) 150 Mg Tab 150 Mg PO Q12HR Take 1 tablet daily x 3 days then twice daily thereafter. Remeron (Mirtazapine) 15 Mg Tab 7.5 Mg PO HS Hydrochlorothiazide 25 Mg Tab 20 Mg PO DAILY Review of Systems Except as stated in HPI: all other systems reviewed are Neg Physical Exam Narrative GENERAL: Well-nourished female patient, in no acute distress. SKIN: Focused skin assessment warm/dry. HEAD: Atraumatic. Normocephalic. EYES: Pupils equal and round. No scleral icterus. No injection or drainage. ENT: No nasal bleeding or discharge. Mucous membranes pink and moist. NECK: Trachea midline. No JVD. CARDIOVASCULAR: Regular rate and rhythm. No murmur appreciated. RESPIRATORY: No accessory muscle use. Clear to auscultation. Breath sounds equal bilaterally. GASTROINTESTINAL: Abdomen soft, non-tender, nondistended. Hepatic and splenic margins not palpable. MUSCULOSKELETAL: No obvious deformities. No clubbing. No cyanosis. No edema. No shortening or rotation. Tenderness elicited palpation of the right buttock. NEUROLOGICAL: Awake and alert. No obvious cranial nerve deficits. Motor grossly within normal limits. Normal speech. PSYCHIATRIC: Appropriate mood and affect; insight and judgment normal. Data Data Last Documented VS Vital Signs Date Time Temp Pulse Resp B/P (MAP) Pulse Ox O2 Delivery O2 Flow Rate FiO2 09/16/17 16:27 (108) 09/16/17 13:00 98.2 87 12 100 Orders Orders Hip, Uni(Ap&Lat) W Ap Pelvis (09/16/17 ) Iv Access Insert/Monitor (09/16/17 13:13) Morphine Inj (Morphine Inj) (09/16/17 13:15) Ondansetron Inj (Zofran Inj) (09/16/17 13:15) Ct Hip W/O Contrast (09/16/17 ) Complete Blood Count With Diff (09/16/17 14:00) Basic Metabolic Panel (Bmp) (09/16/17 14:00) Coag Profile (09/16/17 14:00) Chest, Single Ap (09/16/17 ) Electrocardiogram (09/16/17 ) Ed Discharge Order (09/16/17 15:57) Labs Laboratory Tests Test 09/16/17 13:27 White Blood Count 7.7 TH/MM3 Red Blood Count 3.74 MIL/MM3 Hemoglobin 11.5 GM/DL Hematocrit 34.1 % Mean Corpuscular Volume 91.2 FL Mean Corpuscular Hemoglobin 30.8 PG Mean Corpuscular Hemoglobin Concent 33.8 % Red Cell Distribution Width 15.4 % Platelet Count 308 TH/MM3 Mean Platelet Volume 7.7 FL Neutrophils (%) (Auto) 68.0 % Lymphocytes (%) (Auto) 20.8 % Monocytes (%) (Auto) 5.7 % Eosinophils (%) (Auto) 4.8 % Basophils (%) (Auto) 0.7 % Neutrophils # (Auto) 5.3 TH/MM3 Lymphocytes # (Auto) 1.6 TH/MM3 Monocytes # (Auto) 0.4 TH/MM3 Eosinophils # (Auto) 0.4 TH/MM3 Basophils # (Auto) 0.1 TH/MM3 CBC Comment DIFF FINAL Differential Comment Prothrombin Time 10.0 SEC Prothromb Time International Ratio 1.0 RATIO Activated Partial Thromboplast Time 26.3 SEC Blood Urea Nitrogen 17 MG/DL Creatinine 0.92 MG/DL Random Glucose 96 MG/DL Calcium Level 9.0 MG/DL Sodium Level 140 MEQ/L Potassium Level 3.3 MEQ/L Chloride Level 104 MEQ/L Carbon Dioxide Level 29.3 MEQ/L Anion Gap 7 MEQ/L Estimat Glomerular Filtration Rate 61 ML/MIN MDM Medical Decision Making Medical Screen Exam Complete: Yes Emergency Medical Condition: Yes Medical Record Reviewed: Yes Differential Diagnosis Fracture versus contusion versus dislocation versus sprain Narrative Course 67-year-old female presents to emergency department for evaluation right hip pain following a slip and fall last night. There is no shortening or rotation of the right lower extremity. Patient does have tenderness on the posterior aspect of the right buttock/hip to palpation. X-ray imaging shows question left hilar fracture, CT imaging is recommended. CT imaging shows a nondisplaced acetabular fracture. I discussed the patient with Dr. Kaufman. He suggested giving the patient 2 options, the first to be 2 be admitted for pain control, PT evaluation, and discharge tomorrow or to be discharged today, nonweightbearing right lower extremity except for tiptoe and to follow-up outpatient. I discussed these options with the patient. She states that she would like to be discharged. She does have a walker at home. She does not wish to have any crutches at this time. He verbalizes understanding that she is not weightbearing the right lower extremity, however she asked me several times will happen if she does because she cannot not weight-bear on the right lower extremity. I explained to her it is very important that she does not weight-bear on the right lower extremity except for tiptoe and to discuss further options for mobility with the orthopedic surgeon in follow-up. She verbalizes understanding and agrees to return immediately with any acute worsening symptoms. Diagnosis Primary Impression: Acetabular fracture Qualified Codes: S32.424A - Nondisplaced fracture of posterior wall of right acetabulum, initial encounter for closed fracture Referrals: Brooklyn Mobley DDS, Richard K MD Primary Care Physician Patient Instructions: General Instructions, Pelvic Fracture (DC) Additional Instructions: Ice to the affected area Nonweightbearing right lower extremity. Tiptoe only if needed 6 weeks or until cleared by orthopedic surgery Utilize walker or crutches for assistance Follow-up with orthopedic surgeon this week Follow-up with a primary care provider Return immediately with any acute worsening of symptoms Med/Other Pt SpecificInfo: Prescription(s) given Scripts Docusate Sodium (Colace) 100 Mg Capsule 100 MG PO BID for Prevent Constipation for 3 Days, #6 CAP 0 Refills Prov: Juany Hill 09/16/17 Ibuprofen (Ibuprofen) 600 Mg Tab 600 MG PO Q8H Y for PAIN, #30 TAB 0 Refills Prov: Juany Hill 09/16/17 Hydrocodone-Acetaminophen ([place]) 5 Mg-325 Mg Tab 1 TAB PO Q6H Y for PAIN GREATER THAN 5, #15 TAB 0 Refills Prov: Juany Hill 09/16/17 Disposition: 01 DISCHARGE HOME Condition: Stable Juany Hill Sep 16, 2017 13:08
[2017-09-16] MEDS ORDERED: MORPHINE SULFATE 2 MG/ML INJ IV PUSH ONE (13:15)
[2017-09-16] MEDS ORDERED: ONDANSETRON HCL 4 MG/2 ML VIAL IV PUSH ONE (13:15)
[2017-09-16] MEDS ORDERED: ZYBA150T PO (13:20)
--- NOTE | 2017-09-16 13:57 | RADRPT ---
EXAM DATE/TIME: 09/16/2017 13:41 [facility] COMPARISON: No previous studies available for comparison. INDICATIONS : Right hip pain post fall. MEDICAL HISTORY : None. SURGICAL HISTORY : None. ENCOUNTER: Initial ACUITY: 1 day PAIN SCORE: 08/01 LOCATION: Right hip. FINDINGS: Examination of the right hip was performed with AP Pelvis. There is good alignment of both hip joint s. No joint dislocation. The proximal right femur appears to be grossly intact. However, there is a l ucency seen on several images which appears to be involving the right acetabulum. This is suspicious for a nondisplaced fracture. Recommend a noncontrast CT exam of the right hip. CONCLUSION: Possible fracture involving the right acetabulum. Recommend noncontrast CT exam of the right hip. Brian Iglesias MD on September 16, 2017 at 13:54 Board Certified Radiologist. This report was verified electronically.
--- NOTE | 2017-09-16 14:26 | RADRPT ---
EXAM DATE/TIME: 09/16/2017 14:04 [facility] COMPARISON: No previous studies available for comparison. INDICATIONS : Pre-operative for acetabular fracture. Evaluate for pneumonia, pneumothorax, or commincable disease. MEDICAL HISTORY : None. SURGICAL HISTORY : None. ENCOUNTER: Initial ACUITY: 1 day PAIN SCORE: 0/10 LOCATION: Bilateral chest FINDINGS: A single view of the chest demonstrates the lungs to be symmetrically aerated without evidence of mas s, infiltrate or effusion. The cardiomediastinal contours are unremarkable. Osseous structures are intact. There is some scoliosis with curvature of the thoracic spine to the right. There are primary bony degenerative changes. CONCLUSION: No acute disease. Brian Iglesias MD on September 16, 2017 at 14:25 Board Certified Radiologist. This report was verified electronically.
[2017-09-16 14:35] LABS: AUTOMATED NEUTROPHIL # 5.3 TH/MM3 (1.8-7.7); BASOPHIL # 0.1 TH/MM3 (0-0.2); BASOPHIL % 0.7 % (0.0-2.0); EOSINOPHIL # 0.4 TH/MM3 (0-0.4); EOSINOPHIL % 4.8 % (0.0-4.0); HEMATOCRIT 34.1 % (35.0-46.0); HEMOGLOBIN 11.5 GM/DL (11.6-15.3); LYMPH % 20.8 % (9.0-44.0); LYMPHOCYTE # 1.6 TH/MM3 (1.0-4.8); MEAN CELL VOLUME 91.2 FL (80.0-100.0); MEAN CORPUSCULAR HEMOGLOBIN 30.8 PG (27.0-34.0); MEAN CORPUSCULAR HGB CONC 33.8 % (32.0-36.0); MEAN PLATELET VOLUME 7.7 FL (7.0-11.0); MONO % 5.7 % (0.0-8.0); MONOCYTE # 0.4 TH/MM3 (0-0.9); PLATELET COUNT 308 TH/MM3 (150-450); RED BLOOD COUNT 3.74 MIL/MM3 (4.00-5.30); RED CELL DISTRIBUTION WIDTH 15.4 % (11.6-17.2); WHITE BLOOD COUNT 7.7 TH/MM3 (4.0-11.0)
[2017-09-16 15:03] LABS: BICARBONATE 29.3 MEQ/L (21.0-32.0); CREATININE 0.92 MG/DL (0.50-1.00)
--- NOTE | 2017-09-16 15:23 | RADRPT ---
EXAM DATE/TIME: 09/16/2017 14:54 [facility] COMPARISON: HIP RIGHT (AP&LAT 2/3VWS) W AP PELVIS, September 16, 2017, 13:41. INDICATIONS : Tripped and fell in driveway yesterday, sore right buttock, thigh. RADIATION DOSE: 33.10 CTDIvol (mGy) MEDICAL HISTORY : Hypertension. SURGICAL HISTORY : Appendectomy. Breast reduction, tummy tuck. ENCOUNTER: Initial ACUITY: 2 days PAIN SCALE: 8/10 LOCATION: Right hip TECHNIQUE: Volumetric scanning of the hip was performed. Using automated exposure control and adjustment of the mA and/or kV according to patient size, radiation dose was kept as low as reasonably achievable to o btain optimal diagnostic quality images. DICOM format image data is available electronically for rev iew and comparison. FINDINGS: BONES: The bony structures of the proximal right femur are grossly intact. No joint dislocation is seen. How ever, there is a nondisplaced intra-articular fracture through the posterior wall of the right acetab ulum. The rest of the bony structures of the pelvis are grossly intact. There are degenerative change s involving the lower lumbar spine. JOINTS: No joint dislocation. SOFT TISSUES: The surrounding soft tissues are grossly unremarkable. CONCLUSION: There is a nondisplaced intra-articular fracture involving the posterior wall of the right acetabulum . Brian Iglesias MD on September 16, 2017 at 15:19 Board Certified Radiologist. This report was verified electronically.
[2017-09-16] MEDS ORDERED: NORC5TAB PO (16:00)
[2017-09-16] MEDS ORDERED: IBUP-232 PO (16:00)
[2017-09-16] MEDS ORDERED: COLA100C5 PO (16:00)
--- NOTE | 2017-09-17 12:19 | EKG ---
Date Performed: 09/16/2017 Time Performed: 14:34:34 PTAGE: 67 years EKG: Sinus rhythm NORMAL ECG INTERPRETATION BASED ON A DEFAULT AGE OF 40 YEARS PREVIOUS TRACING : 09/04/2017 07.07 Since the prior tracing, there has been no significan t change DOCTOR: Wesley Salter Interpretating Date/Time 09/17/2017 12:18:06
== END 2017-09-16 16:28 | disposition home or self-care (01) ==
LOC: NEPE 12:58
DX: S32.424A Nondisplaced fracture of posterior wall of right acetabulum, initial encounter for closed fracture (principal); W01.0XXA Fall on same level from slipping, tripping and stumbling without subsequent striking against object, initial encounter; R07.9 Chest pain, unspecified; F41.9 Anxiety disorder, unspecified; F32.9 Major depressive disorder, single episode, unspecified; I10 Essential (primary) hypertension
CPT/HCPCS: 71045; 73502; 73700; 80048; 85025; 85610; 85730; 93005; 96374; 96375; 99285; J2270; J2405

== ENCOUNTER 2017-11-07 11:31 | Inpatient (IN) | payer MEDICARE, MEDICAID ==
[~2017-11-07] VITALS: Ht 152.4 cm; Wt 55.5 kg
[2017-11-07] VITALS (8 sets, daily range): BP systolic 116–155; BP diastolic 70–82; PULSE 80–100; RESP 16–20; TEMP 98.1–98.6; O2SAT 94–99
[~2017-11-07 11:31] MED LIST changes: -CIPR500T2 PO; -CLON0.5T PO; +COLA100C5 PO; -HYDR-3516 PO; +IBUP-232 PO; -METR-1 PO; +NORC5TAB PO; -ZOLO50TA PO; +ZYBA150T PO
[2017-11-07] MEDS ORDERED: SODIUM CHLOR 0.9% 1000 ML INJ 1,000 ML IV SCH (12:49)
[2017-11-07] MEDS ORDERED: OMEP40CA2 PO (12:53)
[2017-11-07] MEDS ORDERED: MIRA3350 PO (12:53)
[2017-11-07] MEDS ORDERED: ONDANSETRON HCL 4 MG/2 ML VIAL IVP ONE (13:00)
[2017-11-07] MEDS ORDERED: SODIUM CHLORIDE 0.9% FLUSH 10 ML FLUSH IV FLUSH PRN ×2 (13:00→17:45)
[2017-11-07] MEDS ORDERED: MORPHINE SULFATE 4 MG/ML INJ IV PUSH ONE (13:00)
--- NOTE | 2017-11-07 13:16 | PD ---
HPI Chief Complaint: Abdominal Pain Time Seen by Provider: 12:39 Travel History International Travel<30 days: No Contact w/Intl Traveler<30days: No Traveled to known affect area: No History of Present Illness HPI Patient is a 67-year-old female presenting to emerge department for evaluation of abdominal pain, nausea, vomiting. Patient states her symptoms started a week and a half ago, she was evaluated by her weaver hand ordered a CAT scan her abdomen is outpatient. Patient reports that she has diverticulitis and was put on Cipro and Flagyl but she was unable to tolerate the ciprofloxacin so she was changed to Augmentin. She has not taken any of this medication today. She states she cannot keep anything down and has been running a low-grade fever which was subjective. She reports feeling bloated and gassy, she reports abdominal pain is an 8 out of 10. Patient states it hurts when she sits up. She has not had a bowel movement since Sunday. Pain is localized to the left lower quadrant, she has not vomited since yesterday. Symptom onset was gradual, symptoms are severe in nature. There are no alleviating factors. Pain is exacerbated with positional changes. PFSH Past Medical History Anxiety: Yes Depression: Yes Chest Pain: Yes Diverticulitis: Yes Gastrointestinal Disorders: Yes (Diverticulitis, colitis) Hypertension: Yes Musculoskeletal: Yes Sleep Apnea: Yes Tetanus Vaccination: < 5 Years Influenza Vaccination: Yes ?: Not Past Surgical History Abdominal Surgery: Yes (tummy tuck) AICD: Yes Appendectomy: Yes Other Surgery: Yes (BREAST REDUCTION) Social History Alcohol Use: No Tobacco Use: No Substance Use: No Allergies-Medications (Allergen,Severity, Reaction): Coded Allergies: adhesive (Unverified Allergy, Intermediate, Rash, 06/10/17) ciprofloxacin (Verified Allergy, Intermediate, 11/07/17) headache Reported Meds & Prescriptions Reported Meds & Active Scripts Active Reported Miralax Powder (Polyethylene Glycol 3350 Powder) 17 Gm Powd 17 Gm PO DAILY Mix and dissolve one measuring cap-ful (17 grams) in water or juice. Omeprazole 40 Mg Cap 40 Mg PO DAILY Remeron (Mirtazapine) 15 Mg Tab 7.5 Mg PO HS Hydrochlorothiazide 25 Mg Tab 20 Mg PO DAILY Review of Systems Except as stated in HPI: all other systems reviewed are Neg General / Constitutional: Positive: Fever, Chills HENT: No: Headaches Cardiovascular: No: Chest Pain or Discomfort Respiratory: No: Shortness of Breath Gastrointestinal: Positive: Nausea, Vomiting, Abdominal Pain, Changes in Bowel Habits, Loss of Appetite Genitourinary: No: Dysuria Musculoskeletal: No: Myalgias Neurologic: No: Weakness, Dizziness, Syncope Physical Exam Narrative GENERAL: Well-developed, well-nourished, alert female. Appears uncomfortable, no acute distress. SKIN: Warm and dry. HEAD: Atraumatic. Normocephalic. EYES: Pupils equal and round. No scleral icterus. No injection or drainage. ENT: No nasal bleeding or discharge. Mucous membranes pink and moist. NECK: Trachea midline. No JVD. CARDIOVASCULAR: Regular rate and rhythm. RESPIRATORY: No accessory muscle use. Clear to auscultation. Breath sounds equal bilaterally. GASTROINTESTINAL: Abdomen soft, tender to palpation in LLQ, nondistended. Hepatic and splenic margins not palpable. hyperactive bowel sounds MUSCULOSKELETAL: Extremities without clubbing, cyanosis, or edema. No obvious deformities. NEUROLOGICAL: Awake and alert. No obvious cranial nerve deficits. Motor grossly within normal limits. Five out of 5 muscle strength in the arms and legs. Normal speech. PSYCHIATRIC: Appropriate mood and affect; insight and judgment normal. Data Data Last Documented VS Vital Signs Date Time Temp Pulse Resp B/P (MAP) Pulse Ox O2 Delivery O2 Flow Rate FiO2 11/07/17 11:53 98.6 100 18 130/72 (91) 97 Orders Orders Complete Blood Count With Diff (11/07/17 11:56) Comprehensive Metabolic Panel (11/07/17 11:56) Lipase (11/07/17 11:56) Prothrombin Time / Inr (Pt) (11/07/17 11:56) Act Partial Throm Time (Ptt) (11/07/17 11:56) Urinalysis - C+S If Indicated (11/07/17 11:56) Iv Access Insert/Monitor (11/07/17 12:49) Ecg Monitoring (11/07/17 12:49) Oximetry (11/07/17 12:49) NPO (11/07/17 12:49) Morphine Inj (Morphine Inj) (11/07/17 13:00) Ondansetron Inj (Zofran Inj) (11/07/17 13:00) Sodium Chlor 0.9% 1000 Ml Inj (Ns 1000 M (11/07/17 12:49) Sodium Chloride 0.9% Flush (Ns Flush) (11/07/17 13:00) Abdomen, Kub Only (11/07/17 ) MDM Medical Decision Making Medical Screen Exam Complete: Yes Emergency Medical Condition: Yes Medical Record Reviewed: Yes Interpretation(s) Vital Signs Date Time Temp Pulse Resp B/P (MAP) Pulse Ox O2 Delivery O2 Flow Rate FiO2 11/07/17 11:53 98.6 100 18 130/72 (91) 97 Differential Diagnosis Obstruction vs diverticulitis vs metabolic abnormality vs other Narrative Course Care of patient transferred to Maisha Baez Nov 07, 2017 13:16
--- NOTE | 2017-11-07 13:27 | PD ---
Physical Exam Date Seen by Provider: Nov 07, 2017 Time Seen by Provider: 13:23 Narrative I resumed care of patient from CORBY Ferrera. Patient presents to the emergency department for evaluation of left lower quadrant abdominal pain, nausea and vomiting. She was seen by her application designer, Dr. Santos, and was prescribed Cipro and Flagyl. However, she states that the Cipro gave her headaches so she was switched to Augmentin. She last took this last night. She states that despite being on medication, her pain has been getting worse. She recently had a CT scan done on November 05, 2017 which showed a long segment of inflammatory change, bowel wall thickening and diverticuli identified within the descending and proximal sigmoid colon with impaction of stool identified proximally to this. Small bowel is normal appearance without evidence of obstruction. These findings were relayed to the referring provider the time of exam. Patient reports nausea and vomiting. She reports low-grade subjective fever. Current pain is 8/10 to the left lower quadrant, worse when she sits up. She reports a last bowel movement was Sunday. She reports history of 8, he talk, no other abdominal surgeries. She also has history of hypertension. Moderate severity. GENERAL: Well-nourished, well-developed female patient, afebrile. SKIN: Focused skin assessment warm/dry. HEAD: Normocephalic. Atraumatic. EYES: No scleral icterus. No injection or drainage. NECK: Supple, trachea midline. No JVD or lymphadenopathy. CARDIOVASCULAR: Regular rate and rhythm without murmurs, gallops, or rubs. RESPIRATORY: Breath sounds equal bilaterally. No accessory muscle use. Lungs sounds are clear to auscultation GASTROINTESTINAL: Abdomen soft and nondistended. Patient has tenderness over the left lower quadrant. MUSCULOSKELETAL: No cyanosis, or edema. BACK: Nontender without obvious deformity. No CVA tenderness. Data Data Last Documented VS Vital Signs Date Time Temp Pulse Resp B/P (MAP) Pulse Ox O2 Delivery O2 Flow Rate FiO2 11/07/17 16:00 81 20 155/79 (104) 99 Room Air 11/07/17 11:53 98.6 Orders Orders Complete Blood Count With Diff (11/07/17 11:56) Comprehensive Metabolic Panel (11/07/17 11:56) Lipase (11/07/17 11:56) Prothrombin Time / Inr (Pt) (11/07/17 11:56) Act Partial Throm Time (Ptt) (11/07/17 11:56) Urinalysis - C+S If Indicated (11/07/17 11:56) Iv Access Insert/Monitor (11/07/17 12:49) Ecg Monitoring (11/07/17 12:49) Oximetry (11/07/17 12:49) NPO (11/07/17 12:49) Morphine Inj (Morphine Inj) (11/07/17 13:00) Ondansetron Inj (Zofran Inj) (11/07/17 13:00) Sodium Chlor 0.9% 1000 Ml Inj (Ns 1000 M (11/07/17 12:49) Sodium Chloride 0.9% Flush (Ns Flush) (11/07/17 13:00) Abdomen, Kub Only (11/07/17 ) Piperacil-Tazo 3.375 Gm Premix (Zosyn 3. (11/07/17 15:45) Metronidazole 500 Mg Inj (Flagyl 500 Mg (11/07/17 15:45) Potassium Chloride (Kcl) (11/07/17 16:00) Admit Order (Ed Use Only) (11/07/17 16:28) Labs Laboratory Tests Test 11/07/17 13:13 White Blood Count 8.9 TH/MM3 Red Blood Count 3.55 MIL/MM3 Hemoglobin 10.9 GM/DL Hematocrit 32.2 % Mean Corpuscular Volume 90.5 FL Mean Corpuscular Hemoglobin 30.7 PG Mean Corpuscular Hemoglobin Concent 34.0 % Red Cell Distribution Width 14.9 % Platelet Count 434 TH/MM3 Mean Platelet Volume 7.4 FL Neutrophils (%) (Auto) 78.9 % Lymphocytes (%) (Auto) 13.7 % Monocytes (%) (Auto) 6.5 % Eosinophils (%) (Auto) 0.5 % Basophils (%) (Auto) 0.4 % Neutrophils # (Auto) 7.0 TH/MM3 Lymphocytes # (Auto) 1.2 TH/MM3 Monocytes # (Auto) 0.6 TH/MM3 Eosinophils # (Auto) 0.0 TH/MM3 Basophils # (Auto) 0.0 TH/MM3 CBC Comment DIFF FINAL Differential Comment Prothrombin Time 11.3 SEC Prothromb Time International Ratio 1.1 RATIO Activated Partial Thromboplast Time 28.2 SEC Blood Urea Nitrogen 13 MG/DL Creatinine 0.76 MG/DL Random Glucose 68 MG/DL Total Protein 7.5 GM/DL Albumin 3.0 GM/DL Calcium Level 9.4 MG/DL Alkaline Phosphatase 87 U/L Aspartate Amino Transf (AST/SGOT) 16 U/L Alanine Aminotransferase (ALT/SGPT) 18 U/L Total Bilirubin 0.3 MG/DL Sodium Level 135 MEQ/L Potassium Level 3.0 MEQ/L Chloride Level 95 MEQ/L Carbon Dioxide Level 28.6 MEQ/L Anion Gap 11 MEQ/L Estimat Glomerular Filtration Rate 76 ML/MIN Lipase 64 U/L [facility] Supervised Visit with JERMAIN: No Interpretation(s) Last Impressions Abdomen X-Ray 11/07/17 0000 Signed Impressions: Service Date/Time: Tuesday, November 07, 2017 13:13 - CONCLUSION: Predominantly colonic dilatation as above nonspecific. Ronal Becerra MD FACR Differential Diagnosis Diverticulitis versus abscess versus colitis versus bowel obstruction Narrative Course 67-year-old female presents to the emergency department for worsening left lower quadrant abdominal pain, currently on Augmentin for diverticulitis. I reviewed previous CT report from 2 days ago. IV access obtained. CBC, CMP, lipase, PTT, PT/INR, UA are ordered and pending. Abdominal x-ray is ordered and pending. Patient is given morphine 2 mg IV, Zofran 4 mg IV, normal saline 1 L IV bolus. CBC shows no acute abnormality. CMP shows hyponatremia 3.0. Lipase is 64. Coags are unremarkable. KUB shows dilated transverse colon is evident measuring 7.6 cm. Minimal gas is present in the ascending colon. Stool is seen in the descending colon. There is no free air. I discussed the case with attending physician, Dr. Ritter. Patient is given Zosyn 3.375 g IV, Flagyl 500 mg IV. Patient is given potassium 40 mEq by mouth. Patient will be admitted with GI consult. [facility] is paged for admission. Dr. Duncan accepted admission. Diagnosis Primary Impression: Diverticulitis Additional Impression: Colon distention Admitting Information Admitting Physician Requests: Admit Tiffany Quintana Nov 07, 2017 13:27
[2017-11-07 13:45] LABS: BASOPHIL % 0.4 % (0.0-2.0); EOSINOPHIL % 0.5 % (0.0-4.0); HEMATOCRIT 32.2 % (35.0-46.0); HEMOGLOBIN 10.9 GM/DL (11.6-15.3); LYMPH % 13.7 % (9.0-44.0); LYMPHOCYTE # 1.2 TH/MM3 (1.0-4.8); MEAN CELL VOLUME 90.5 FL (80.0-100.0); MEAN CORPUSCULAR HEMOGLOBIN 30.7 PG (27.0-34.0); MEAN PLATELET VOLUME 7.4 FL (7.0-11.0); MONO % 6.5 % (0.0-8.0); MONOCYTE # 0.6 TH/MM3 (0-0.9); NEUT % 78.9 % (16.0-70.0); PLATELET COUNT 434 TH/MM3 (150-450); RED BLOOD COUNT 3.55 MIL/MM3 (4.00-5.30); RED CELL DISTRIBUTION WIDTH 14.9 % (11.6-17.2); WHITE BLOOD COUNT 8.9 TH/MM3 (4.0-11.0)
[2017-11-07 13:55] LABS: INTERNATIONAL NORMALIZED RATIO 1.1 RATIO; PROTHROMBIN TIME - PATIENT 11.3 SEC (9.8-11.6)
[2017-11-07 14:16] LABS: ALKALINE PHOSPHATASE 87 U/L (45-117); TOTAL BILIRUBIN ADULT 0.3 MG/DL (0.2-1.0); TOTAL PROTEIN 7.5 GM/DL (6.4-8.2)
[2017-11-07 14:18] LABS: ALT (GPT) 18 U/L (10-53); AST (GOT) 16 U/L (15-37); BICARBONATE 28.6 MEQ/L (21.0-32.0); BLOOD UREA NITROGEN 13 MG/DL (7-18); CALCIUM 9.4 MG/DL (8.5-10.1); CHLORIDE 95 MEQ/L (98-107); CREATININE 0.76 MG/DL (0.50-1.00); GLOMERULAR FILTRATION RATE 76 ML/MIN (>89); GLUCOSE,RANDOM 68 MG/DL (74-106); SODIUM (NA) 135 MEQ/L (136-145)
--- NOTE | 2017-11-07 15:34 | RADRPT ---
EXAM DATE/TIME: 11/07/2017 13:13 [facility] COMPARISON: No previous studies available for comparison. INDICATIONS : Evaluate for obstruction. Pain in lower abdomen. MEDICAL HISTORY : Hypertension. SURGICAL HISTORY : Appendectomy. Breast reduction, tummy tuck. ENCOUNTER: Initial ACUITY: 1 day PAIN SCORE: 6/10 LOCATION: Bilateral lower quadrant FINDINGS: Dilated transverse colon is evident measuring 7.6 cm. Minimal gas is present in the ascending colon. Stool is seen in the descending colon. There is no free air. CONCLUSION: Predominantly colonic dilatation as above nonspecific. Ronal Becerra MD FACR on November 07, 2017 at 15:31 Board Certified Radiologist. This report was verified electronically.
[2017-11-07] MEDS ORDERED: PIPERACIL-TAZO 3.375 GM PREMIX 50 ML IV ONE (15:45)
[2017-11-07] MEDS ORDERED: metroNIDAZOLE 500 MG INJ 100 ML IV ONE (15:45)
[2017-11-07] MEDS ORDERED: POTASSIUM CHLORIDE 20 MEQ CONTROLLED RELEASE TAB PO ONE (16:00)
--- NOTE | 2017-11-07 17:40 | HHI.HP ---
HPI Service [facility] Primary Care Physician Non-Staff Admission Diagnosis diverticulitis, colonic dilation Diagnoses: (1) Diverticulitis (2) Colon distention Chief Complaint: Abdominal pain and distention Travel History International Travel<30 Days: No Contact w/Intl Traveler <30 Da: No Traveled to Known Affected Are: No History of Present Illness 67-year-old female with a past medical history of hypertension, diverticulosis, GI bleed, lower back degenerative disc disease, depression, and anxiety presented to the ED for evaluation of abdominal pain and distention.The pain is a severe cramping in her left lower quadrant that radiates to her lower abdomen. She had associated bloating with mild nausea/vomiting. 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 And again colonoscopy in May 2017 which showed 1 polyps, diverticulosis severe , colitis. Review of Systems Except as stated in HPI: all other systems reviewed are Neg Past Family Social History Past Medical History Hypertension Degenerative disc disease Anxiety Depression Diverticulosis Past Surgical History Appendectomy Bilateral breast reduction Reported Medications Miralax Powder (Polyethylene Glycol 3350 Powder) 17 Gm Powd 17 Gm PO DAILY Mix and dissolve one measuring cap-ful (17 grams) in water or juice. Omeprazole 40 Mg Cap 40 Mg PO DAILY Remeron (Mirtazapine) 15 Mg Tab 7.5 Mg PO HS Hydrochlorothiazide 25 Mg Tab 20 Mg PO DAILY Allergies: Coded Allergies: adhesive (Unverified Allergy, Intermediate, Rash, 06/10/17) ciprofloxacin (Verified Allergy, Intermediate, 11/07/17) headache Family History Father: Aneurysm Mother: Lung cancer (history of smoking) Social History Tobacco use: Denies Alcohol use: Denies Illicit drug use: Denies Physical Exam Vital Signs Vital Signs Date Time Temp Pulse Resp B/P (MAP) Pulse Ox O2 Delivery O2 Flow Rate FiO2 11/07/17 17:00 83 18 117/74 (88) 95 Room Air 11/07/17 16:00 81 20 155/79 (104) 99 Room Air 11/07/17 15:00 80 16 131/82 (98) 98 Room Air 11/07/17 14:28 87 18 120/70 (87) 11/07/17 14:18 85 18 120/73 (89) 95 Room Air 11/07/17 11:53 98.6 100 18 130/72 (91) 97 Physical Exam GENERAL: This is a well-nourished, well-developed patient, in no apparent distress. SKIN: No rashes, ecchymoses or lesions. Cool and dry. HEAD: Atraumatic. Normocephalic. No temporal or scalp tenderness. EYES: Pupils equal round and reactive. Extraocular motions intact. No scleral icterus. No injection or drainage. ENT: Nose without bleeding, purulent drainage or septal hematoma. Throat without erythema, tonsillar hypertrophy or exudate. Uvula midline. Airway patent. NECK: Trachea midline. No JVD or lymphadenopathy. Supple, nontender, no meningeal signs. CARDIOVASCULAR: Regular rate and rhythm without murmurs, gallops, or rubs. RESPIRATORY: Clear to auscultation. Breath sounds equal bilaterally. No wheezes , rales, or rhonchi. GASTROINTESTINAL: Abdomen soft, tender LLQ, nondistended. No hepato-splenomegaly , or palpable masses. No guarding. MUSCULOSKELETAL: Extremities without clubbing, cyanosis, or edema. No joint tenderness, effusion, or edema noted. No calf tenderness. Negative Homans sign bilaterally. NEUROLOGICAL: Awake and alert. Cranial nerves II through XII intact. Motor and sensory grossly within normal limits. Five out of 5 muscle strength in all muscle groups. Normal speech. Laboratory Laboratory Tests Test 11/07/17 13:13 White Blood Count 8.9 Red Blood Count 3.55 Hemoglobin 10.9 Hematocrit 32.2 Mean Corpuscular Volume 90.5 Mean Corpuscular Hemoglobin 30.7 Mean Corpuscular Hemoglobin Concent 34.0 Red Cell Distribution Width 14.9 Platelet Count 434 Mean Platelet Volume 7.4 Neutrophils (%) (Auto) 78.9 Lymphocytes (%) (Auto) 13.7 Monocytes (%) (Auto) 6.5 Eosinophils (%) (Auto) 0.5 Basophils (%) (Auto) 0.4 Neutrophils # (Auto) 7.0 Lymphocytes # (Auto) 1.2 Monocytes # (Auto) 0.6 Eosinophils # (Auto) 0.0 Basophils # (Auto) 0.0 CBC Comment DIFF FINAL Differential Comment Prothrombin Time 11.3 Prothromb Time International Ratio 1.1 Activated Partial Thromboplast Time 28.2 Blood Urea Nitrogen 13 Creatinine 0.76 Random Glucose 68 Total Protein 7.5 Albumin 3.0 Calcium Level 9.4 Alkaline Phosphatase 87 Aspartate Amino Transf (AST/SGOT) 16 Alanine Aminotransferase (ALT/SGPT) 18 Total Bilirubin 0.3 Sodium Level 135 Potassium Level 3.0 Chloride Level 95 Carbon Dioxide Level 28.6 Anion Gap 11 Estimat Glomerular Filtration Rate 76 Lipase 64 Result Diagram: 11/07/17 1313 11/07/17 1313 Imaging Last Impressions Abdomen X-Ray 11/07/17 0000 Signed Impressions: Service Date/Time: Sunday, November 07, 2017 13:13 - CONCLUSION: Predominantly colonic dilatation as above nonspecific. Ronal Becerra MD FACR Septic Shock Reassessment Septic shock perfusion: reassessment completed Caprini VTE Risk Assessment Caprini VTE Risk Assessment: Mod/High Risk (score >= 2) Caprini Risk Assessment Model Point Value = 1 Point Value = 2 Point Value = 3 Point Value = 5 Age 41-60 Minor surgery BMI > 25 kg/m2 Swollen legs Varicose veins or History of unexplained or recurrent spontaneous Oral contraceptives or hormone replacement Sepsis (< 1 month) Serious lung disease, including pneumonia (< 1 month) Abnormal pulmonary function Acute myocardial infarction Congestive heart failure (< 1 month) History of inflammatory bowel disease Medical patient at bed rest Age 61-74 Arthroscopic surgery Major open surgery (> 45 min) Laparoscopic surgery (> 45 min) Malignancy Confined to bed (> 72 hours) Immobilizing plaster cast Central venous access Age >= 75 History of VTE Family history of VTE Factor V Leiden Prothrombin [id number] Lupus anticoagulant Anticardiolipin antibodies Elevated serum homocysteine Heparin-induced thrombocytopenia Other congenital or acquired thrombophilia Stroke (< 1 month) Elective arthroplasty Hip, pelvis, or leg fracture Acute spinal cord injury (< 1 month) Prophylaxis Regimen Total Risk Factor Score Risk Level Prophylaxis Regimen 0-1 Low Early ambulation 2 Moderate Order ONE of the following: *Sequential Compression Device (SCD) *Heparin 5000 units SQ BID 3-4 Higher Order ONE of the following medications: *Heparin 5000 units SQ TID *Enoxaparin/Lovenox 40 mg SQ daily (WT < 150 kg, CrCl > 30 mL/min) *Enoxaparin/Lovenox 30 mg SQ daily (WT < 150 kg, CrCl > 10-29 mL/min) *Enoxaparin/Lovenox 30 mg SQ BID (WT < 150 kg, CrCl > 30 mL/min) AND/OR *Sequential Compression Device (SCD) 5 or more Highest Order ONE of the following medications: *Heparin 5000 units SQ TID (Preferred with Epidurals) *Enoxaparin/Lovenox 40 mg SQ daily (WT < 150 kg, CrCl > 30 mL/min) *Enoxaparin/Lovenox 30 mg SQ daily (WT < 150 kg, CrCl > 10-29 mL/min) *Enoxaparin/Lovenox 30 mg SQ BID (WT < 150 kg, CrCl > 30 mL/min) AND *Sequential Compression Device (SCD) Assessment and Plan Problem List: (1) Diverticulitis ICD Code: K57.92 - Diverticulitis of intestine, part unspecified, without perforation or abscess without bleeding Status: Acute (2) Colon distention ICD Code: K63.89 - Other specified diseases of intestine Status: Acute Assessment and Plan 67-year-old female with Diverticulitis until proven otherwise Colonic distention Abdominal x-ray noted and reviewed with finding of colonic dilatation Check abdominal CT scan Status post Zosyn and Flagyl IV 1 in ED, continue antibiotics Consul gastroenterology for evaluation for possible colonoscopy Resume MiraLAX Clear liquid and advance diet as tolerated Hypokalemia Give potassium 75 mEq 1 now and monitor Hypertension Resume outpatient medication DVT prophylaxis: Bilateral SCDs Code Status Full code Discussed Condition With Patient, ED physician Physician Certification 2 Midnight Certification Type: Admission for Inpatient Services Order for Inpatient Services The services are ordered in accordance with Medicare regulations or non- Medicare payer requirements, as applicable. In the case of services not specified as inpatient-only, they are appropriately provided as inpatient services in accordance with the 2-midnight benchmark. Estimated LOS (days): 2 days is the estimated time the patient will need to remain in the hospital, assuming treatment plan goals are met and no additional complications. Post-Hospital Plan: Not yet determined Diego Duncan MD Nov 07, 2017 17:40 Arnav Villarreal MD Nov 09, 2017 10:58
[2017-11-07] MEDS ORDERED: BISACODYL 10 MG SUPP RECTAL PRN (17:45)
[2017-11-07] MEDS ORDERED: RESP: ALBUTEROL 2.5 MG/IPRATROPIUM 0.5 MG NEB (PRN) NEB (17:45)
[2017-11-07] MEDS ORDERED: NALOXONE HCL 0.4 MG/ML AMP IV PUSH PRN (17:45)
[2017-11-07] MEDS ORDERED: SENNOSIDES 8.6 MG TAB PO PRN (17:45)
[2017-11-07] MEDS ORDERED: ACETAMINOPHEN 325 MG TAB PO PRN ×2 (17:45)
[2017-11-07] MEDS ORDERED: MAGNESIUM HYDROXIDE SUSP 30 ML CUP PO PRN (17:45)
[2017-11-07] MEDS ORDERED: LACTULOSE SYRUP 20 GM/30 ML CUP PO PRN (17:45)
[2017-11-07] MEDS ORDERED: ENALAPRILAT 2.5 MG/2 ML VIAL IV PUSH PRN (17:45)
[2017-11-07] MEDS ORDERED: MORPHINE SULFATE 2 MG/ML SYRINGE IV PUSH PRN (17:45)
[2017-11-07] MEDS ORDERED: POTASSIUM CHLORIDE 25 MEQ EFFERVESCENT TAB PO ONE ×2 (18:45→20:00)
[2017-11-07] MEDS ORDERED: DIATRIZOATE MEGLUM/DIATRIZOATE SOD 9 ML CUP ONE (18:53)
[2017-11-07] MEDS ORDERED: DIATRIZOATE MEGLUM/DIATRIZOATE SOD 9 ML CUP PO ONE (18:57)
[2017-11-07] MEDS: SODIUM CHLOR 0.9% 1000 ML INJ 1,000 ML IV SCH (18:57)
[2017-11-07] MEDS ORDERED: PILL SPLITTER OTHER PRN (19:00)
[2017-11-07] MEDS: SODIUM CHLORIDE 0.9% FLUSH 10 ML FLUSH IV FLUSH SCH (21:00)
[2017-11-07] MEDS: MIRTAZAPINE 15 MG TAB PO SCH (21:00)
[2017-11-07] MEDS: DOCUSATE SODIUM 50 MG/SENNA 8.6 MG TAB PO SCH (21:00)
[2017-11-07] MEDS ORDERED: IOHEXOL 350 MG/ML 10 ML VIAL (for RAD DIAG) IVCONTRAST ONE (23:07)
--- NOTE | 2017-11-07 23:20 | RADRPT ---
EXAM DATE/TIME: 11/07/2017 23:04 [facility] COMPARISON: CT ABDOMEN & PELVIS W CONTRAST, June 10, 2017, 16:32. INDICATIONS : Abdominal pain and diarrhea. IV CONTRAST: 100 cc Omnipaque 350 (iohexol) IV ORAL CONTRAST: Prescribed oral contrast ingested. RADIATION DOSE: 5.53 CTDIvol (mGy) MEDICAL HISTORY : Diverticulitis. Hypertension. Osteoporosis.Colitis. SURGICAL HISTORY : Appendectomy. ENCOUNTER: Initial ACUITY: 2 days PAIN SCALE: 7/10 LOCATION: Abdomen. TECHNIQUE: Volumetric scanning of the abdomen and pelvis was performed. Using automated exposure control and ad justment of the mA and/or kV according to patient size, radiation dose was kept as low as reasonably achievable to obtain optimal diagnostic quality images. DICOM format image data is available electro nically for review and comparison. FINDINGS: LOWER LUNGS: The visualized lower lungs are clear. LIVER: Homogeneous density without lesion. There is no dilation of the biliary tree. No calcified gallston es. SPLEEN: Normal size without lesion. PANCREAS: Within normal limits. KIDNEYS: Normal in size and shape. There is no mass, stone or hydronephrosis. ADRENAL GLANDS: Within normal limits. VASCULAR: Atherosclerotic and tortuous abdominal aorta. No aneurysm. BOWEL/MESENTERY: There is severe wall thickening and induration of the colon in the region of the distal descending an d proximal sigmoid, for example series 2 image 47. The upstream: Is tendon all the way to the cecum, up to 8.6 cm. No small bowel or gastric distention. No pericolonic adenopathy demonstrated. ABDOMINAL WALL: Within normal limits. RETROPERITONEUM: There is no lymphadenopathy. BLADDER: No wall thickening or mass. REPRODUCTIVE: Within normal limits. INGUINAL: There is no lymphadenopathy or hernia. MUSCULOSKELETAL: No acute bony abnormality demonstrated. CONCLUSION: Chronic partial colonic obstruction and appears to be on the basis of moderate diverticulitis superim posed on chronic diverticular disease in the region of the distal descending and proximal sigmoid col on. Underlying mass lesion not entirely excludable and if not done recently, direct visualization wit h colonoscopy recommended if felt clinically indicated. No small bowel distention. Naveed Scott MD on November 07, 2017 at 23:13 Board Certified Radiologist. This report was verified electronically.
[2017-11-08] MEDS: PIPERACIL-TAZO 3.375 GM PREMIX 50 ML IV SCH ×3 (00:48→15:21)
[2017-11-08] MEDS: metroNIDAZOLE 500 MG INJ 100 ML IV SCH ×3 (00:49→15:20)
[2017-11-08 04:12] VITALS: BP 94/55; PULSE 86; RESP 16; TEMP 97.3; O2SAT 92
[2017-11-08 07:49] LABS: AUTOMATED NEUTROPHIL # 5.4 TH/MM3 (1.8-7.7); BASOPHIL # 0.1 TH/MM3 (0-0.2); BASOPHIL % 0.7 % (0.0-2.0); EOSINOPHIL # 0.3 TH/MM3 (0-0.4); EOSINOPHIL % 3.3 % (0.0-4.0); HEMATOCRIT 26.1 % (35.0-46.0); HEMOGLOBIN 8.9 GM/DL (11.6-15.3); LYMPH % 19.7 % (9.0-44.0); LYMPHOCYTE # 1.6 TH/MM3 (1.0-4.8); MEAN CELL VOLUME 91.3 FL (80.0-100.0); MEAN CORPUSCULAR HEMOGLOBIN 31.2 PG (27.0-34.0); MEAN CORPUSCULAR HGB CONC 34.1 % (32.0-36.0); MEAN PLATELET VOLUME 7.5 FL (7.0-11.0); MONO % 8.1 % (0.0-8.0); MONOCYTE # 0.6 TH/MM3 (0-0.9); NEUT % 68.2 % (16.0-70.0); PLATELET COUNT 381 TH/MM3 (150-450); RED BLOOD COUNT 2.86 MIL/MM3 (4.00-5.30); RED CELL DISTRIBUTION WIDTH 14.7 % (11.6-17.2); WHITE BLOOD COUNT 7.9 TH/MM3 (4.0-11.0)
[2017-11-08 08:00] VITALS: BP 110/62; PULSE 76; RESP 16; TEMP 97.9; O2SAT 95
[2017-11-08 08:09] LABS: ALBUMIN 2.4 GM/DL (3.4-5.0); ALT (GPT) 11 U/L (10-53); AST (GOT) 9 U/L (15-37); BICARBONATE 24.5 MEQ/L (21.0-32.0); BLOOD UREA NITROGEN 13 MG/DL (7-18); CALCIUM 8.8 MG/DL (8.5-10.1); CHLORIDE 104 MEQ/L (98-107); CREATININE 0.69 MG/DL (0.50-1.00); GLOMERULAR FILTRATION RATE 85 ML/MIN (>89); GLUCOSE,RANDOM 57 MG/DL (74-106); SODIUM (NA) 138 MEQ/L (136-145)
[2017-11-08 08:12] LABS: ALKALINE PHOSPHATASE 69 U/L (45-117); TOTAL BILIRUBIN ADULT 0.3 MG/DL (0.2-1.0); TOTAL PROTEIN 5.8 GM/DL (6.4-8.2)
[2017-11-08] MEDS ORDERED: NON-FORMULARY DRUG (Omeprazole 40 MG) PO SCH (09:00)
[2017-11-08] MEDS: SODIUM CHLORIDE 0.9% FLUSH 10 ML FLUSH IV FLUSH SCH ×2 (09:10→20:14)
[2017-11-08] MEDS: POLYETHYLENE GLYCOL 17 GM PKG PO SCH (09:10)
[2017-11-08] MEDS: DOCUSATE SODIUM 50 MG/SENNA 8.6 MG TAB PO SCH ×2 (09:10→20:13)
[2017-11-08] MEDS: HYDROCHLOROTHIAZIDE 25 MG TAB PO SCH (09:10)
[2017-11-08] MEDS: ACETAMINOPHEN/HYDROcodone 325 MG/7.5 MG TAB PO PRN ×2 (09:11→19:41)
[2017-11-08] MEDS: PANTOPRAZOLE SOD 40 MG DELAYED RELEASE TAB PO SCH (09:11)
--- NOTE | 2017-11-08 10:02 | PD.CONS ---
HPI History of Present Illness This is a 67 year old female with hx diverticulosis, sigmoid stricture, colitis who presented with abd pain, n/v that started 2 weeks ago. SHe initially called her GI doctor, Dr Santos, who prescribed augmentin. AFter 2 days she had no relief and came to the ED. CT showed diverticulitis with diverticulosis distal descending and prox sigmoid, underlying mass can't be excluded. KUB showed colon distention 7.6 cm. She admits a black tarry stool this morning. Liquid BM last night. Denies flatus. Tolerating clears. She says this is her 3 rd episode in the last year. She had a normal EGD 01/2017, and colonoscopy at that time that showed polyp, sigmoid stricture, polyp- adenoma. Colonoscopy 2016 showed severe diverticulosis, colitis, polyp- tubular adenoma. (Indira Deluna) PFSH Past Medical History Hypertension Degenerative disc disease Anxiety Depression Diverticulosis Past Surgical History Appendectomy Bilateral breast reduction (Indira Deluna) Coded Allergies: adhesive (Unverified Allergy, Intermediate, Rash, 06/10/17) ciprofloxacin (Verified Allergy, Intermediate, 11/07/17) headache Family History Father: Aneurysm Mother: Lung cancer (history of smoking) Social History Tobacco use: Denies Alcohol use: Denies Illicit drug use: Denies (Indira Deluna) Review of Systems Constitutional: DENIES: Fever Endocrine: DENIES: Polydipsia Eyes: DENIES: Blurred vision Ears, nose, mouth, throat: DENIES: Hearing loss Respiratory: DENIES: Cough Cardiovascular: DENIES: Chest pain Gastrointestinal: COMPLAINS OF: Abdominal pain, Black stools, Diarrhea, Nausea , Vomiting, Swelling of Abdomen, DENIES: Hematemesis Genitourinary: DENIES: Hematuria Musculoskeletal: DENIES: Joint Swelling Integumentary: DENIES: Abnormal pigmentation Hematologic/lymphatic: DENIES: Bruising Immunologic/allergic: DENIES: Eczema Neurologic: DENIES: Headache Psychiatric: DENIES: Confusion (Indira Deluna) GI Exam Vitals I&O Vital Signs Date Time Temp Pulse Resp B/P (MAP) Pulse Ox O2 Delivery O2 Flow Rate FiO2 11/08/17 08:00 97.9 76 16 110/62 (78) 95 4/19/18 04:12 97.3 86 16 94/55 (68) 92 11/07/17 20:29 98.1 82 16 116/72 (87) 97 11/07/17 19:00 11/07/17 18:00 86 18 123/70 (87) 94 Room Air 11/07/17 17:00 83 18 117/74 (88) 95 Room Air 11/07/17 16:00 81 20 155/79 (104) 99 Room Air 11/07/17 15:00 80 16 131/82 (98) 98 Room Air 11/07/17 14:28 87 18 120/70 (87) 11/07/17 14:18 85 18 120/73 (89) 95 Room Air 11/07/17 11:53 98.6 100 18 130/72 (91) 97 I/O 11/07/17 11/07/17 11/07/17 11/08/17 11/08/17 11/08/17 07:00 15:00 23:00 07:00 15:00 23:00 Intake Total 1050 ml Balance 1050 ml Intake IV Total 1050 ml Imaging Last Impressions Abdomen/Pelvis CT 11/07/17 0000 Signed Impressions: Service Date/Time: Tuesday, November 07, 2017 23:04 - CONCLUSION: Chronic partial colonic obstruction and appears to be on the basis of moderate diverticulitis superimposed on chronic diverticular disease in the region of the distal descending and proximal sigmoid colon. Underlying mass lesion not entirely excludable and if not done recently, direct visualization with colonoscopy recommended if felt clinically indicated. No small bowel distention. Naveed Scott MD Abdomen X-Ray 11/07/17 0000 Signed Impressions: Service Date/Time: Tuesday, November 07, 2017 13:13 - CONCLUSION: Predominantly colonic dilatation as above nonspecific. Ronal Becerra MD FACR Laboratory Test 11/07/17 13:13 11/08/17 06:30 White Blood Count 8.9 TH/MM3 7.9 TH/MM3 Red Blood Count 3.55 MIL/MM3 2.86 MIL/MM3 Hemoglobin 10.9 GM/DL 8.9 GM/DL Hematocrit 32.2 % 26.1 % Mean Corpuscular Volume 90.5 FL 91.3 FL Mean Corpuscular Hemoglobin 30.7 PG 31.2 PG Mean Corpuscular Hemoglobin Concent 34.0 % 34.1 % Red Cell Distribution Width 14.9 % 14.7 % Platelet Count 434 TH/MM3 381 TH/MM3 Mean Platelet Volume 7.4 FL 7.5 FL Neutrophils (%) (Auto) 78.9 % 68.2 % Lymphocytes (%) (Auto) 13.7 % 19.7 % Monocytes (%) (Auto) 6.5 % 8.1 % Eosinophils (%) (Auto) 0.5 % 3.3 % Basophils (%) (Auto) 0.4 % 0.7 % Neutrophils # (Auto) 7.0 TH/MM3 5.4 TH/MM3 Lymphocytes # (Auto) 1.2 TH/MM3 1.6 TH/MM3 Monocytes # (Auto) 0.6 TH/MM3 0.6 TH/MM3 Eosinophils # (Auto) 0.0 TH/MM3 0.3 TH/MM3 Basophils # (Auto) 0.0 TH/MM3 0.1 TH/MM3 CBC Comment DIFF FINAL DIFF FINAL Differential Comment Prothrombin Time 11.3 SEC Prothromb Time International Ratio 1.1 RATIO Activated Partial Thromboplast Time 28.2 SEC Blood Urea Nitrogen 13 MG/DL 13 MG/DL Creatinine 0.76 MG/DL 0.69 MG/DL Random Glucose 68 MG/DL 57 MG/DL Total Protein 7.5 GM/DL 5.8 GM/DL Albumin 3.0 GM/DL 2.4 GM/DL Calcium Level 9.4 MG/DL 8.8 MG/DL Alkaline Phosphatase 87 U/L 69 U/L Aspartate Amino Transf (AST/SGOT) 16 U/L 9 U/L Alanine Aminotransferase (ALT/SGPT) 18 U/L 11 U/L Total Bilirubin 0.3 MG/DL 0.3 MG/DL Sodium Level 135 MEQ/L 138 MEQ/L Potassium Level 3.0 MEQ/L 3.4 MEQ/L Chloride Level 95 MEQ/L 104 MEQ/L Carbon Dioxide Level 28.6 MEQ/L 24.5 MEQ/L Anion Gap 11 MEQ/L 10 MEQ/L Estimat Glomerular Filtration Rate 76 ML/MIN 85 ML/MIN Lipase 64 U/L Physical Examination HEENT: PERRL; normocephalic; atraumatic; no jaundice. CHEST: CTA CARDIAC: RRR ABDOMEN: Soft,distended in upper quadrant, diffuse TTP; no hepatosplenomegaly; bowel sounds are present in all four quadrants. EXTREMITIES: No clubbing, cyanosis, or edema. SKIN: Normal; no rash; no jaundice. RN CORRECTIONS: No focal deficits; alert and oriented times three. (Indira Deluna) Assessment and Plan Plan ASSESSMENT - abd pain, distention, n/v, loose stool - diverticulitis. CT showing diverticulitis, diverticulosis distal descending and proximal sigmoid, mass can' t be excluded. she does have hx sigmoid stricture. KUB shows colon dilated 7.6cm, ?2/2 sigmoid stricture she is not vomiting at this time, is comfortable and tolerating clears last colonoscopy 05/2017 foudn severe diverticulosis, colitis, polyp - tubular adenoma. It is not clear if her other episodes colitis 05/2017, 01/2017 were r/t diverticulitis or some other etiology. WBC WNL. on zosyn PLAN - continue abx - clears - timing TBD for colonoscopy - further recs to follow pt seen by myself and Dr Mendoza and this note is on her behalf (Indira Deluna) Physician Comments seen, examined agree with above we will consult colorectal surgery, discussed with - may need partial colectomy flexi vs Gastrografin pending colorectal surgery evaluation old colonoscopy reports reviewed (Torrie Mendoza MD) Indira Deluna Nov 08, 2017 10:02 Torrie Mendoza MD Nov 08, 2017 19:18
[2017-11-08 11:43] VITALS: BP 108/65; PULSE 74; RESP 16; TEMP 98.4; O2SAT 95
--- NOTE | 2017-11-08 11:52 | PD.PN.STU ---
Subjective Remarks This patient is a 67 y/o female with a hx of hypertension, back pain, colitis, and diverticulitis who presents with abdominal pain. The pain began 2 weeks in her left lower quadrant. She says the pain was sharp, 8/10, and constant. She denies any aggravating or alleviating factors. She describes the pain as excruciating. She had nausea, vomiting, and a low grade fever. Her GI doctor gave her cipro and flagyl last Sunday which did not help so she had a CT done on Sunday that showed obstruction and diverticulitis. She was not able to pass any stool and felt a pressure on her bladder that lead to urinary frequency. They switched her to Augmentin but the pain got so bad and she was unable to eat so she came to the ED yesterday. She has not has any food in 6 days because she has to vomit after she eats. Her most recent colonoscopy was in May 2017 which showed colitis and diverticula which was also seen on a previous colonoscopy in December 2016. She has had abdominal surgery before- a tummy tuck and appendectomy. She has been hospitalized 3 times for diverticulitis. The patient does take Percocet every couple of days for back pain but says she has not been constipated from it before. She denies chills, chest pain, SOB, cough, muscle aches, headaches, dysuria, hematuria, or hematochezia. Today she feels very fatigued and her pain is only a little better. She says it is no 6/10. She has no appetite and still feels nauseas when she tries to eat. She has not passed gas yet but has has 2 very loose bowel movements that she says are black and tarry. Objective Vitals Vital Signs Date Time Temp Pulse Resp B/P (MAP) Pulse Ox O2 Delivery O2 Flow Rate FiO2 11/08/17 08:00 97.9 76 16 110/62 (78) 95 11/08/17 04:12 97.3 86 16 94/55 (68) 92 11/07/17 20:29 98.1 82 16 116/72 (87) 97 11/07/17 19:00 11/07/17 18:00 86 18 123/70 (87) 94 Room Air 11/07/17 17:00 83 18 117/74 (88) 95 Room Air 11/07/17 16:00 81 20 155/79 (104) 99 Room Air 11/07/17 15:00 80 16 131/82 (98) 98 Room Air 11/07/17 14:28 87 18 120/70 (87) 11/07/17 14:18 85 18 120/73 (89) 95 Room Air 11/07/17 11:53 98.6 100 18 130/72 (91) 97 I/O 11/07/17 11/07/17 11/07/17 11/08/17 11/08/17 11/08/17 07:00 15:00 23:00 07:00 15:00 23:00 Intake Total 1050 ml Balance 1050 ml Intake IV Total 1050 ml Result Diagram: 11/08/1762911/08/17629 Other Results Laboratory Tests Test 11/07/17 13:13 11/08/17 06:30 White Blood Count 8.9 TH/MM3 7.9 TH/MM3 Red Blood Count 3.55 MIL/MM3 2.86 MIL/MM3 Hemoglobin 10.9 GM/DL 8.9 GM/DL Hematocrit 32.2 % 26.1 % Mean Corpuscular Volume 90.5 FL 91.3 FL Mean Corpuscular Hemoglobin 30.7 PG 31.2 PG Mean Corpuscular Hemoglobin Concent 34.0 % 34.1 % Red Cell Distribution Width 14.9 % 14.7 % Platelet Count 434 TH/MM3 381 TH/MM3 Mean Platelet Volume 7.4 FL 7.5 FL Neutrophils (%) (Auto) 78.9 % 68.2 % Lymphocytes (%) (Auto) 13.7 % 19.7 % Monocytes (%) (Auto) 6.5 % 8.1 % Eosinophils (%) (Auto) 0.5 % 3.3 % Basophils (%) (Auto) 0.4 % 0.7 % Neutrophils # (Auto) 7.0 TH/MM3 5.4 TH/MM3 Lymphocytes # (Auto) 1.2 TH/MM3 1.6 TH/MM3 Monocytes # (Auto) 0.6 TH/MM3 0.6 TH/MM3 Eosinophils # (Auto) 0.0 TH/MM3 0.3 TH/MM3 Basophils # (Auto) 0.0 TH/MM3 0.1 TH/MM3 CBC Comment DIFF FINAL DIFF FINAL Differential Comment Prothrombin Time 11.3 SEC Prothromb Time International Ratio 1.1 RATIO Activated Partial Thromboplast Time 28.2 SEC Blood Urea Nitrogen 13 MG/DL 13 MG/DL Creatinine 0.76 MG/DL 0.69 MG/DL Random Glucose 68 MG/DL 57 MG/DL Total Protein 7.5 GM/DL 5.8 GM/DL Albumin 3.0 GM/DL 2.4 GM/DL Calcium Level 9.4 MG/DL 8.8 MG/DL Alkaline Phosphatase 87 U/L 69 U/L Aspartate Amino Transf (AST/SGOT) 16 U/L 9 U/L Alanine Aminotransferase (ALT/SGPT) 18 U/L 11 U/L Total Bilirubin 0.3 MG/DL 0.3 MG/DL Sodium Level 135 MEQ/L 138 MEQ/L Potassium Level 3.0 MEQ/L 3.4 MEQ/L Chloride Level 95 MEQ/L 104 MEQ/L Carbon Dioxide Level 28.6 MEQ/L 24.5 MEQ/L Anion Gap 11 MEQ/L 10 MEQ/L Estimat Glomerular Filtration Rate 76 ML/MIN 85 ML/MIN Lipase 64 U/L Imaging Last Impressions Abdomen/Pelvis CT 11/07/17 0000 Signed Impressions: Service Date/Time: Tuesday, November 07, 2017 23:04 - CONCLUSION: Chronic partial colonic obstruction and appears to be on the basis of moderate diverticulitis superimposed on chronic diverticular disease in the region of the distal descending and proximal sigmoid colon. Underlying mass lesion not entirely excludable and if not done recently, direct visualization with colonoscopy recommended if felt clinically indicated. No small bowel distention. Naveed Scott MD Abdomen X-Ray 11/07/17 0000 Signed Impressions: Service Date/Time: Tuesday, November 07, 2017 13:13 - CONCLUSION: Predominantly colonic dilatation as above nonspecific. Ronal Becerra MD FACR Objective Remarks GENERAL: Well-nourished, well-developed patient who appears fatigued and in no acute distress. SKIN: Warm and dry. Patient appears pale. HEAD: Normocephalic. EYES: No scleral icterus. No injection or drainage. CARDIOVASCULAR: Regular rate and rhythm with a 2/6 systolic murmur heard in right second intercostal space, no S3 or S4. RESPIRATORY: Breath sounds equal bilaterally. No accessory muscle use. GASTROINTESTINAL: Abdomen soft, tender in LLQ and mild tenderness in RLQ. Bowel sounds present in all quadrants except LLQ. Past Medical History Asthma: No Anxiety: Yes Depression: Yes Heart Rhythm Problems: No Cancer: No Cardiovascular Problems: Yes (HTN) High Cholesterol: No Chemotherapy: No Chest Pain: No Congestive Heart Failure: No COPD: No Diabetes: No Diverticulitis: Yes Endocrine: No Gastrointestinal Disorders: Yes (Diverticulitis, colitis) Genitourinary: No Hypertension: Yes Immune Disorder: No Musculoskeletal: Yes Neurologic: No Psychiatric: Yes Reproductive: No Respiratory: No Radiation Therapy: No Sleep Apnea: Yes Thyroid Disease: No Tetanus Vaccination: < 5 Years Influenza Vaccination: Yes ?: Not Past Surgical History Abdominal Surgery: Yes (tummy tuck) AICD: Yes Appendectomy: Yes Other Surgery: Yes (BREAST REDUCTION) Social History Alcohol Use: No Tobacco Use: No Substance Use: No A/P Assessment and Plan This patient is a 67 y/o female with a hx of hypertension, back pain, colitis, and diverticulitis who presents with LLQ pain. She was treated outpatient for diverticulitis and had an outpatient CT that showed an obstruction with diverticulitis. Inpatient CT shows the same findings. She did not improve on the outpatient antibiotics. Her severe nausea and lack of appetite is likely due to her obstruction. She had an episode of black and tarry stool today but still no appetite and no flatulence. Labs showed a drop in her Hgb from 10.8 to 8.9 overnight which could be secondary to fluid replacement but should be further explored due to the black stool. 1. Large Bowel Obstruction secondary to diverticulitis. -Consult GI- appreciate any recommendations -Continue Zosyn 50ml Q 8 hours IV -Continue fluid resuscitation -Continue morphine for pain PRN -PCP should seek other options for pain control -clear liquid diet, advance as tolerated -Zofran PRN 2. Anemia -normal MCV -likely due to rehydration -Hemoccult to evaluate the black stool -If she has more diarrhea, order C.diff because she has been on multiple antibiotics recently. 3. Hypertension -Continue home HCTZ 4. DVT prophylaxis- SCD's Manpreet Mo M3 Nov 08, 2017 11:52
[2017-11-08] MEDS ORDERED: POTASSIUM CHLORIDE 20 MEQ CONTROLLED RELEASE TAB PO ONE (13:45)
[2017-11-08] MEDS: SODIUM CHLOR 0.9% 1000 ML INJ 1,000 ML IV SCH ×2 (14:00→15:22)
--- NOTE | 2017-11-08 15:01 | HHI.PR ---
Subjective Remarks Patient still complaining of abdominal pain 6 out of 10, still a little nausea Afebrile, seen by GI Objective Vitals Vital Signs Date Time Temp Pulse Resp B/P (MAP) Pulse Ox O2 Delivery O2 Flow Rate FiO2 11/08/17 11:43 98.4 74 16 108/65 (79) 95 11/08/17 08:00 97.9 76 16 110/62 (78) 95 11/08/17 04:12 97.3 86 16 94/55 (68) 92 11/07/17 20:29 98.1 82 16 116/72 (87) 97 11/07/17 19:00 11/07/17 18:00 86 18 123/70 (87) 94 Room Air 11/07/17 17:00 83 18 117/74 (88) 95 Room Air 11/07/17 16:00 81 20 155/79 (104) 99 Room Air I/O 11/07/17 11/07/17 11/07/17 11/08/17 11/08/17 11/08/17 07:00 15:00 23:00 07:00 15:00 23:00 Intake Total 1050 ml 100 ml Balance 1050 ml 100 ml Intake IV Total 1050 ml 100 ml Result Diagram: 11/08/17 0630 11/08/17 0630 Objective Remarks GENERAL: This is a well-nourished, well-developed patient, in no apparent distress. SKIN: No rashes, warm and dry HEAD: Atraumatic. Normocephalic. EYES: Pupils equal round and reactive. Extraocular motions intact. No scleral icterus. ENT: Nose without bleeding, or drainage, Airway patent. NECK: Trachea midline. Supple CARDIOVASCULAR: Regular rate and rhythm without murmurs, gallops, or rubs. RESPIRATORY: Fair air entry bilaterally. No wheezes, rales, or rhonchi. GASTROINTESTINAL: Abdomen soft, non-tender, nondistended. Positive bowel sounds MUSCULOSKELETAL: Extremities without clubbing, cyanosis, or edema. Pedal pulses appreciated NEUROLOGICAL: Awake and alert. Moves all extremity. Normal speech.no focal neurological deficit A/P Problem List: (1) Diverticulitis ICD Code: K57.92 - Diverticulitis of intestine, part unspecified, without perforation or abscess without bleeding Status: Acute (2) Colon distention ICD Code: K63.89 - Other specified diseases of intestine Status: Acute Assessment and Plan 67-year-old female with Diverticulitis/diverticulosis, rule out abscess Cotto presented with abdominal pain, distention, n/v, loose stool - diverticulitis. CT showing diverticulitis, diverticulosis distal descending and proximal sigmoid, mass can't be excluded. she does have hx sigmoid stricture. KUB shows colon dilated 7.6cm, ?2/2 sigmoid stricture Status post Zosyn and Flagyl IV 1 in ED, continue antibiotics Appreciate GI consultation, continue n.p.o. to clear liquid as tolerated, colonoscopy to be determined Hypokalemia Give potassium 75 mEq 1 now and monitor Hypertension Resume outpatient medication DVT prophylaxis: Bilateral SCDs Arnav Villarreal MD Nov 08, 2017 15:01
[2017-11-08 15:10] VITALS: BP 109/66; PULSE 78; RESP 16; TEMP 98.5; O2SAT 95
[2017-11-08] MEDS: ONDANSETRON HCL 4 MG/2 ML VIAL IVP PRN (15:21)
[2017-11-08 20:00] VITALS: BP 116/57; PULSE 91; RESP 18; TEMP 99.2; O2SAT 95
[2017-11-08] MEDS: MIRTAZAPINE 15 MG TAB PO SCH (20:14)
[2017-11-09] VITALS: BP 109/59; PULSE 80; RESP 16; TEMP 98.4; O2SAT 94
[2017-11-09] MEDS: SODIUM CHLOR 0.9% 1000 ML INJ 1,000 ML IV SCH ×3 (00:06→20:43)
[2017-11-09] MEDS: metroNIDAZOLE 500 MG INJ 100 ML IV SCH ×4 (00:06→23:33)
[2017-11-09] MEDS: PIPERACIL-TAZO 3.375 GM PREMIX 50 ML IV SCH ×4 (03:06→23:33)
[2017-11-09 06:39] LABS: BICARBONATE 24.9 MEQ/L (21.0-32.0); CALCIUM 8.5 MG/DL (8.5-10.1); CREATININE 0.66 MG/DL (0.50-1.00)
[2017-11-09 08:00] VITALS: BP 113/55; PULSE 87; RESP 18; TEMP 99.4; O2SAT 95
[2017-11-09] MEDS: DOCUSATE SODIUM 50 MG/SENNA 8.6 MG TAB PO SCH (08:35)
[2017-11-09] MEDS: POLYETHYLENE GLYCOL 17 GM PKG PO SCH (08:35)
[2017-11-09] MEDS: HYDROCHLOROTHIAZIDE 25 MG TAB PO SCH (08:39)
[2017-11-09] MEDS: PANTOPRAZOLE SOD 40 MG DELAYED RELEASE TAB PO SCH (08:39)
[2017-11-09] MEDS: ACETAMINOPHEN/HYDROcodone 325 MG/7.5 MG TAB PO PRN ×2 (08:39→16:57)
[2017-11-09] MEDS: SODIUM CHLORIDE 0.9% FLUSH 10 ML FLUSH IV FLUSH SCH ×2 (08:44→20:40)
--- NOTE | 2017-11-09 11:40 | HHI.PR ---
Subjective Remarks Patient still complaining of abdominal pain. Does not enjoy the clear liquids, hoping for the colectomy because she is tired of dealing with this issue. No chest pain or sob. Objective Vitals Vital Signs Date Time Temp Pulse Resp B/P (MAP) Pulse Ox O2 Delivery O2 Flow Rate FiO2 11/09/17 10:25 11/09/17 08:00 99.4 87 18 113/55 (74) 95 11/09/17 00:00 98.4 80 16 109/59 (76) 94 11/08/17 20:00 99.2 91 18 116/57 (76) 95 11/08/17 15:10 98.5 78 16 109/66 (80) 95 11/08/17 11:43 98.4 74 16 108/65 (79) 95 I/O 11/08/17 11/08/17 11/08/17 11/09/17 11/09/17 11/09/17 07:00 15:00 23:00 07:00 15:00 23:00 Intake Total 100 ml 150 ml 1240 ml Balance 100 ml 150 ml 1240 ml Intake Oral 240 ml IV Total 100 ml 150 ml 1000 ml # Voids 1 # Bowel Movements 0 Result Diagram: 11/08/17 0630 11/09/17 0530 Objective Remarks GENERAL: Well-nourished, well-developed patient who appears fatigued and in no acute distress. SKIN: Warm and dry. Patient appears pale. HEAD: Normocephalic. EYES: No scleral icterus. No injection or drainage. CARDIOVASCULAR: Regular rate and rhythm with a 2/6 systolic murmur heard in right second intercostal space, no S3 or S4. RESPIRATORY: Breath sounds equal bilaterally. No accessory muscle use. GASTROINTESTINAL: Abdomen soft, tender in LLQ and mild tenderness in RLQ. Bowel sounds present in all quadrants except LLQ. Medications and IVs Current Medications Medications (Trade) Dose Ordered Sig/[place]aine Route Start Time Stop Time Status Last Admin Sodium Chloride 1,000 ml @ 100 mls/hr Q10H IV 11/07/17 18:00 11/09/17 00:06 (NS Flush) 2 ml UNSCH PRN IV FLUSH 11/07/17 17:45 (NS Flush) 2 ml BID IV FLUSH 11/07/17 21:00 11/08/17 09:10 (Tylenol) 650 mg Q4H PRN PO 11/07/17 17:45 (Zofran Inj) 4 mg Q6H PRN IVP 11/07/17 17:45 11/08/17 15:21 (Tylenol) 650 mg Q6H PRN PO 11/07/17 17:45 ([place] 5-325 Mg) 1 tab Q4H PRN PO 11/07/17 17:45 ([place] 7.5-325 Mg) 1 tab Q4H PRN PO 11/07/17 17:45 11/09/17 08:39 (Morphine Inj) 2 mg Q3H PRN IV PUSH 11/07/17 17:45 (Narcan Inj) 0.4 mg UNSCH PRN IV PUSH 11/07/17 17:45 (Ruby-Colace) 1 tab BID PO 11/07/17 21:00 11/08/17 09:10 (Milk Of Magnesia Liq) 30 ml Q12H PRN PO 11/07/17 17:45 (Senokot) 17.2 mg Q12H PRN PO 11/07/17 17:45 (Dulcolax Supp) 10 mg DAILY PRN RECTAL 11/07/17 17:45 (Lactulose Liq) 30 ml DAILY PRN PO 11/07/17 17:45 Metronidazole 100 ml @ 100 mls/hr Q8H IV 11/08/17 00:00 11/09/17 08:40 Piperacillin Sod/ Tazobactam Sod 50 ml @ 100 mls/hr Q8H IV 11/08/17 00:00 11/09/17 08:00 (Duoneb Neb) 1 ampule Q2HR NEB PRN NEB 11/07/17 17:45 (Vasotec Inj) 2.5 mg Q6H PRN IV PUSH 11/07/17 17:45 (Hydrodiuril) 25 mg DAILY PO 11/08/17 09:00 11/09/17 08:39 (Remeron) 7.5 mg HS PO 11/07/17 21:00 11/08/17 20:14 (Miralax) 17 gm DAILY PO 11/08/17 09:00 11/08/17 09:10 (Protonix) 40 mg DAILY PO 11/08/17 09:00 11/09/17 08:39 (Pill Splitter) 1 ea UNSCH PRN OTHER 11/07/17 19:00 Urinary Catheter: No Vascular Central Line Catheter: No A/P Problem List: (1) Diverticulitis ICD Code: K57.92 - Diverticulitis of intestine, part unspecified, without perforation or abscess without bleeding Status: Acute (2) Colon distention ICD Code: K63.89 - Other specified diseases of intestine Status: Acute Assessment and Plan Large Bowel Obstruction secondary to diverticulitis. -Consult GI- appreciate any recommendations, GI has consulted colorectal for possible colectomy -Continue Zosyn 50ml Q 8 hours IV -Continue fluid resuscitation -Continue morphine for pain PRN -Cont clear liquid -Zofran PRN 2. Anemia -normal MCV -likely due to rehydration -Hemoccult to evaluate the black stool -If she has more diarrhea, order C.diff because she has been on multiple antibiotics recently. 3. Hypertension -Continue home HCTZ 4. DVT prophylaxis- SCD's Discharge Planning pending colorectal Chiquis Hannah Nov 09, 2017 11:40
[2017-11-09 12:00] VITALS: BP 103/57; PULSE 79; RESP 18; TEMP 98.6; O2SAT 93
--- NOTE | 2017-11-09 12:17 | HHI.GIFU ---
Subjective Remarks Pt complaining of LLQ pain Denies nausea, vomiting Has not had much of the clear liquid diet Reports watery BMs (Rupali Serna) Objective Vitals I&O Vital Signs Date Time Temp Pulse Resp B/P (MAP) Pulse Ox O2 Delivery O2 Flow Rate FiO2 11/09/17 10:25 11/09/17 08:00 99.4 87 18 113/55 (74) 95 11/09/17 00:00 98.4 80 16 109/59 (76) 94 11/08/17 20:00 99.2 91 18 116/57 (76) 95 11/08/17 15:10 98.5 78 16 109/66 (80) 95 I/O 11/08/17 11/08/17 11/08/17 11/09/17 11/09/17 11/09/17 07:00 15:00 23:00 07:00 15:00 23:00 Intake Total 100 ml 150 ml 1240 ml Balance 100 ml 150 ml 1240 ml Intake Oral 240 ml IV Total 100 ml 150 ml 1000 ml # Voids 1 # Bowel Movements 0 Laboratory Laboratory Tests Test 11/09/17 05:30 Blood Urea Nitrogen 6 Creatinine 0.66 Random Glucose 77 Calcium Level 8.5 Sodium Level 138 Potassium Level 3.3 Chloride Level 105 Carbon Dioxide Level 24.9 Anion Gap 8 Estimat Glomerular Filtration Rate 90 Date/Time Source Procedure Growth Status 11/08/17 16:53 Stool Stool Stool Occult Blood (FRACISCO) - Final HEMOCCULT NEGATIVE Complete Imaging Last Impressions Abdomen/Pelvis CT 11/07/17 0000 Signed Impressions: Service Date/Time: Tuesday, November 07, 2017 23:04 - CONCLUSION: Chronic partial colonic obstruction and appears to be on the basis of moderate diverticulitis superimposed on chronic diverticular disease in the region of the distal descending and proximal sigmoid colon. Underlying mass lesion not entirely excludable and if not done recently, direct visualization with colonoscopy recommended if felt clinically indicated. No small bowel distention. Naveed Scott MD Abdomen X-Ray 11/07/17 0000 Signed Impressions: Service Date/Time: Tuesday, November 07, 2017 13:13 - CONCLUSION: Predominantly colonic dilatation as above nonspecific. Ronal Becerra MD FACR Physical Exam HEENT: Normocephalic; atraumatic CHEST: Even/unlabored CARDIAC: RRR ABDOMEN: Soft, nondistended, LLQ tenderness, bowel sounds active SKIN: Normal; no rash; no jaundice. BUSINESS DEVELOPMENT AGENT: No focal deficits; alert and oriented times three. (Rupali Serna) Assessment and Plan Plan ASSESSMENT - LLQ abdominal pain/distention with watery stool CT abdomen and pelvis W IV contrast (11/07) --> Chronic partial colonic obstruction and appears to be on the basis of moderate diverticulitis superimposed on chronic diverticular disease in the region of the distal descending and proximal sigmoid colon. Underlying mass lesion not entirely excludable. No small bowel distention. Colonoscopy (06/08) --> Severe diverticulosis in the sigmoid colon. Two sessile polyps in the transverse colon. Circumferential colitis in the descending and sigmoid colon , mucosa was edematous and erythematous. Internal and external hemorrhoids. Pathology ( transverse colon polyp) tubular adenoma (sigmoid colon) colonic mucosa without significant histologic abnormality. - Nausea/vomiting- now resolved- on clear liquid diet EGD (January 2017) --> Normal EGD - Anemia- normocytic- currently H/H 8.9/26.1 - Hemoccult stool negative PLAN - CRS consult pending- case discussed by Dr. Mendoza and Dr. Brown Possible need for partial colectomy - Flex vs Gastrografin enema pending CRS eval - Flagyl - Zosyn - Clear liquid diet - Further recommendations based on clinical course Pt has been seen and examined by myself and Dr. Mendoza and this note is written on her behalf (Rupali Serna) Physician Comments seen, examined agree with above awaiting crc recommendations (Torrie Mendoza MD) Rupali Serna Nov 09, 2017 12:17 Torrie Mendoza MD Nov 09, 2017 15:32
[2017-11-09 16:00] VITALS: BP 125/65; PULSE 82; RESP 18; TEMP 99; O2SAT 93
[2017-11-09] MEDS ORDERED: POTASSIUM CHLORIDE 10 MEQ CONTROLLED RELEASE TAB PO ONE (17:00)
[2017-11-09] MEDS ORDERED: DIATRIZOATE MEGLUM/DIATRIZOATE SOD 120 ML BTL (for RAD DIAG) RECTAL ONE (18:44)
--- NOTE | 2017-11-09 19:20 | RADRPT ---
EXAM DATE/TIME: 11/09/2017 17:19 [facility] COMPARISON: No previous studies available for comparison. INDICATIONS : Abdominal pain, possible obstruction FLUORO TIME: 0.9 minutes IMAGE COUNT: 15 CONTRAST: 1. Gastroview MEDICAL HISTORY : Diverticulitis. Hypertension. Osteoporosis.Colitis SURGICAL HISTORY : Appendectomy. ENCOUNTER: Initial ACUITY: 4 - 6 days PAIN SCORE: 5/10 LOCATION: Bilateral abdomen. FINDINGS: Preliminary film is unremarkable. Under fluoroscopic guidance a Gastrografin enema was performed with free flow of contrast into the re ctum. This area of thickening seen in the mid to distal descending colon. Extends over at least a 20 cm in length. Contrast does traverse through this area. There is some linear contrast paralleling the lumen at the medial aspect of the descending colon which may represent some fistula formation. This does not extend to another structure. The proximal descending colon appears normal in caliber. There are a few scattered diverticula seen. On the postevacuation film, contrast is seen in the hepatic fle xure. The cecum is distended to 11 cm. CONCLUSION: Linear area of colitis involving the mid and distal aspects of the descending colon. Naveed Gil MD on November 09, 2017 at 19:12 Board Certified Radiologist. This report was verified electronically.
[2017-11-09 20:00] VITALS: BP 125/61; PULSE 87; RESP 17; TEMP 98.6; O2SAT 96
[2017-11-09] MEDS: MIRTAZAPINE 15 MG TAB PO SCH (20:40)
--- NOTE | 2017-11-09 21:03 | MB ---
cc: Jeffrey Brown MD DATE: 11/09/2017 REASON FOR CONSULTATION Colonic stricture, abdominal pain. HISTORY OF PRESENT ILLNESS: Ms. Wang is a very pleasant 67-year-old female with a history of abdominal pain and diverticular disease going back several years. She was recently colonoscoped in January, showing no evidence of cancer, but diverticular disease and possible nonspecific colitis of the descending colon and rectosigmoid. The patient had been having more cramping and abdominal symptoms over the last several months, culminating in severe pain and vomiting prior to this admission. She was started on antibiotics for presumed diverticulitis. After a couple of days with no relief she came to the emergency room for additional evaluation. She had a CT scan which showed inflammation of the sigmoid and descending colon consistent with either diverticulitis or colitis. There was proximal distention of the transverse colon all the way back to the cecum. The patient has continued to have some bowel movements with passage of flatus and liquid stools. Continues to complain of quite a bit of cramping abdominal pain, especially after minimal oral intake. She has had very little rectal bleeding. Vomiting prior to admission, but none since admission. Denies any fever. No family history of colorectal cancer or colitis. PAST MEDICAL HISTORY: High blood pressure, depression, history of polyps. PAST SURGICAL HISTORY: Status post appendectomy, bilateral breast reduction. MEDICATIONS: See admitting list. ALLERGIES: ADHESIVE TAPE AND POSSIBLY CIPRO. FAMILY HISTORY: Father had an aneurysm. Mother had lung cancer. SOCIAL HISTORY: The patient does deny present tobacco use. No alcohol abuse. PERTINENT PHYSICAL EXAMINATION: GENERAL: A very pleasant older female in no acute distress. HEENT: Remarkable for pink, dry membranes. Nonicteric sclerae. NECK: Supple without gross adenopathy. CHEST: Relatively clear, symmetrical expanding. HEART: Had a regular rhythm. ABDOMEN: Soft, round some tympany. No real tenderness, rebound or guarding or masses noted. EXTREMITIES: Showed no cyanosis or clubbing and minimal 1+ pedal edema. LABORATORY DATA: Laboratory studies all reviewed and CT scan reviewed. IMPRESSION: A 67-year-old female with history of diverticular disease and possible nonspecific colitis by a previous colonoscopy, did have a stricture or narrowing of the sigmoid colon. Presents at this time with more obstructive symptoms and difficulty with bowel movements. Will get a Gastrografin study to evaluate the degree of obstruction. A proximal colon seems to be slightly dilated and if obstruction is significant may need to have a diverting colostomy done relatively soon if bowel is able to be prepped even slowly, would prefer to clean her out of the next several days and plan on a segmental resection with possibility of a primary anastomosis at that time with or without possible temporary diversion. All discussed at length with the patient. Will see what the Gastrografin enema shows later this evening. Jeffrey Brown MD AHR/rt , 08:45 PM , 09:02 PM
[2017-11-10 00:05] VITALS: BP 112/59; PULSE 87; RESP 18; TEMP 99.6; O2SAT 95
[2017-11-10] MEDS: ACETAMINOPHEN/HYDROcodone 325 MG/5 MG TAB PO PRN ×2 (05:13→22:31)
[2017-11-10] MEDS: SODIUM CHLOR 0.9% 1000 ML INJ 1,000 ML IV SCH ×2 (05:14→16:00)
[2017-11-10 05:59] LABS: AUTOMATED NEUTROPHIL # 7.2 TH/MM3 (1.8-7.7); BASOPHIL % 0.4 % (0.0-2.0); EOSINOPHIL # 0.1 TH/MM3 (0-0.4); EOSINOPHIL % 1.5 % (0.0-4.0); HEMATOCRIT 29.5 % (35.0-46.0); HEMOGLOBIN 10.1 GM/DL (11.6-15.3); LYMPH % 17.4 % (9.0-44.0); LYMPHOCYTE # 1.7 TH/MM3 (1.0-4.8); MEAN CELL VOLUME 90.5 FL (80.0-100.0); MEAN CORPUSCULAR HGB CONC 34.2 % (32.0-36.0); MEAN PLATELET VOLUME 7.2 FL (7.0-11.0); MONO % 5.9 % (0.0-8.0); MONOCYTE # 0.6 TH/MM3 (0-0.9); NEUT % 74.8 % (16.0-70.0); PLATELET COUNT 414 TH/MM3 (150-450); RED BLOOD COUNT 3.26 MIL/MM3 (4.00-5.30); RED CELL DISTRIBUTION WIDTH 14.9 % (11.6-17.2); WHITE BLOOD COUNT 9.6 TH/MM3 (4.0-11.0)
[2017-11-10 06:12] LABS: BICARBONATE 27.6 MEQ/L (21.0-32.0); CALCIUM 8.7 MG/DL (8.5-10.1); CREATININE 0.63 MG/DL (0.50-1.00); MAGNESIUM 1.6 MG/DL (1.5-2.5)
[2017-11-10] MEDS ORDERED: POTASSIUM CHLORIDE 25 MEQ EFFERVESCENT TAB PO ONE (06:30)
[2017-11-10] MEDS ORDERED: POTASSIUM CHLOR 20 MEQ PREMIX 100 ML IV ONE (06:30)
[2017-11-10 08:00] VITALS: BP 121/67; PULSE 89; RESP 18; TEMP 98.5; O2SAT 94
[2017-11-10] MEDS: PIPERACIL-TAZO 3.375 GM PREMIX 50 ML IV SCH ×2 (08:00→16:00)
[2017-11-10] MEDS: SODIUM CHLORIDE 0.9% FLUSH 10 ML FLUSH IV FLUSH SCH ×2 (09:00→22:24)
[2017-11-10] MEDS: HYDROCHLOROTHIAZIDE 25 MG TAB PO SCH (09:00)
[2017-11-10] MEDS: PANTOPRAZOLE SOD 40 MG DELAYED RELEASE TAB PO SCH (10:54)
[2017-11-10] MEDS: POLYETHYLENE GLYCOL 17 GM PKG PO SCH ×2 (10:54→22:23)
[2017-11-10] MEDS: metroNIDAZOLE 500 MG INJ 100 ML IV SCH ×2 (10:54→16:00)
[2017-11-10] MEDS: ACETAMINOPHEN/HYDROcodone 325 MG/7.5 MG TAB PO PRN ×2 (10:55→22:30)
--- NOTE | 2017-11-10 11:49 | HHI.PR ---
Subjective Remarks Sigmoid colon stricture, most likely diverticular more comfortable today Objective Vital Signs Date Time Temp Pulse Resp B/P (MAP) Pulse Ox O2 Delivery O2 Flow Rate FiO2 11/10/17 08:00 98.5 89 18 121/67 (85) 94 11/10/17 00:05 99.6 87 18 112/59 (76) 95 11/09/17 20:00 98.6 87 17 125/61 (82) 96 11/09/17 17:55 11/09/17 16:00 99.0 82 18 125/65 (85) 93 11/09/17 14:26 11/09/17 12:00 98.6 79 18 103/57 (72) 93 I/O 11/09/17 11/09/17 11/09/17 11/10/17 11/10/17 11/10/17 07:00 15:00 23:00 07:00 15:00 23:00 Intake Total 1240 ml 700 ml 1870 ml 1368 ml Balance 1240 ml 700 ml 1870 ml 1368 ml Intake Oral 240 ml 720 ml 240 ml IV Total 1000 ml 700 ml 1150 ml 1128 ml # Voids 1 3 2 # Bowel Movements 0 1 Result Diagram: 11/10/17 0512 11/10/17 05 Objective Remarks Abdomen soft, nondistended, minimal tenderness at this time Assessment and Plan Assessment and Plan gradual prep for possible surgery next week Pamela Humphrey MD Nov 10, 2017 11:49
[2017-11-10 12:00] VITALS: BP 135/63; PULSE 86; RESP 18; TEMP 99.3; O2SAT 96
--- NOTE | 2017-11-10 12:21 | HHI.PR ---
Subjective Remarks Still having abdominal pain but tolerable at this time. No CP/SOB/N/V. Would like to go for a walk later today Objective Vitals Vital Signs Date Time Temp Pulse Resp B/P (MAP) Pulse Ox O2 Delivery O2 Flow Rate FiO2 11/10/17 08:00 98.5 89 18 121/67 (85) 94 11/10/17 00:05 99.6 87 18 112/59 (76) 95 11/09/17 20:00 98.6 87 17 125/61 (82) 96 11/09/17 17:55 11/09/17 16:00 99.0 82 18 125/65 (85) 93 11/09/17 14:26 I/O 11/09/17 11/09/17 11/09/17 11/10/17 11/10/17 11/10/17 07:00 15:00 23:00 07:00 15:00 23:00 Intake Total 1240 ml 700 ml 1870 ml 1368 ml Balance 1240 ml 700 ml 1870 ml 1368 ml Intake Oral 240 ml 720 ml 240 ml IV Total 1000 ml 700 ml 1150 ml 1128 ml # Voids 1 3 2 # Bowel Movements 0 1 Result Diagram: 11/10/17 0512 11/10/17 0512 Imaging Last Impressions Enema w/Water Soluble 11/09/17 0000 Signed Impressions: Service Date/Time: Thursday, November 09, 2017 17:19 - CONCLUSION: Linear area of colitis involving the mid and distal aspects of the descending colon. Naveed Gil MD Abdomen/Pelvis CT 11/07/17 0000 Signed Impressions: Service Date/Time: Tuesday, November 07, 2017 23:04 - CONCLUSION: Chronic partial colonic obstruction and appears to be on the basis of moderate diverticulitis superimposed on chronic diverticular disease in the region of the distal descending and proximal sigmoid colon. Underlying mass lesion not entirely excludable and if not done recently, direct visualization with colonoscopy recommended if felt clinically indicated. No small bowel distention. Naveed Scott MD Abdomen X-Ray 11/07/17 0000 Signed Impressions: Service Date/Time: Tuesday, November 07, 2017 13:13 - CONCLUSION: Predominantly colonic dilatation as above nonspecific. Ronal Becerra MD FACR Objective Remarks GENERAL: Well-nourished, well-developed patient who appears fatigued but comfortable HEAD: Normocephalic. EYES: No scleral icterus. No injection or drainage. CARDIOVASCULAR: Regular rate and rhythm, I didn't auscultate a murmurs at this time. RESPIRATORY: Breath sounds equal bilaterally. No accessory muscle use. GASTROINTESTINAL: Abdomen soft, mildly tender in LLQ. Bowel sounds are hyperactive at times A/P Problem List: (1) Diverticulitis ICD Code: K57.92 - Diverticulitis of intestine, part unspecified, without perforation or abscess without bleeding Status: Acute (2) Colon distention ICD Code: K63.89 - Other specified diseases of intestine Status: Acute Assessment and Plan Large Bowel Obstruction secondary to diverticulitis. -GI and colorectal sx following. -Continue Zosyn 50ml Q 8 hours IV -Continue pain control. -Cont clear liquid -Zofran PRN -gastrografin enema shows linear area of colitis in mid, distal aspect of descending colon. -awaiting final recs from colorectal. ? OR next week 2. Anemia -normal MCV -likely due to rehydration -Hemoccult neg -If she has more diarrhea, order C.diff because she has been on multiple antibiotics recently. none reported 3. Hypertension -Continue home HCTZ Discharge Planning continue current management. per colorectal sx, gradual prep for possible surgery next week Lynnette Campbell MD Nov 10, 2017 12:21
--- NOTE | 2017-11-10 14:20 | HHI.GIFU ---
Subjective Remarks Pt walking around with her walker Tired of clear liquids Multiple BMs Denies nausea, vomiting Continued LLQ abdominal pain that radiates to other side of abdomen (Rupali Serna) Objective Vitals I&O Vital Signs Date Time Temp Pulse Resp B/P (MAP) Pulse Ox O2 Delivery O2 Flow Rate FiO2 11/10/17 12:00 99.3 86 18 135/63 (87) 96 11/10/17 08:00 98.5 89 18 121/67 (85) 94 11/10/17 00:05 99.6 87 18 112/59 (76) 95 11/09/17 20:00 98.6 87 17 125/61 (82) 96 11/09/17 17:55 11/09/17 16:00 99.0 82 18 125/65 (85) 93 11/09/17 14:26 I/O 11/09/17 11/09/17 11/09/17 11/10/17 11/10/17 11/10/17 07:00 15:00 23:00 07:00 15:00 23:00 Intake Total 1240 ml 700 ml 1870 ml 1368 ml Balance 1240 ml 700 ml 1870 ml 1368 ml Intake Oral 240 ml 720 ml 240 ml IV Total 1000 ml 700 ml 1150 ml 1128 ml # Voids 1 3 2 # Bowel Movements 0 1 Laboratory Laboratory Tests Test 11/09/17 21:05 11/10/17 05:12 Erythrocyte Sedimentation Rate 48 White Blood Count 9.6 Red Blood Count 3.26 Hemoglobin 10.1 Hematocrit 29.5 Mean Corpuscular Volume 90.5 Mean Corpuscular Hemoglobin 31.0 Mean Corpuscular Hemoglobin Concent 34.2 Red Cell Distribution Width 14.9 Platelet Count 414 Mean Platelet Volume 7.2 Neutrophils (%) (Auto) 74.8 Lymphocytes (%) (Auto) 17.4 Monocytes (%) (Auto) 5.9 Eosinophils (%) (Auto) 1.5 Basophils (%) (Auto) 0.4 Neutrophils # (Auto) 7.2 Lymphocytes # (Auto) 1.7 Monocytes # (Auto) 0.6 Eosinophils # (Auto) 0.1 Basophils # (Auto) 0.0 CBC Comment DIFF FINAL Differential Comment Blood Urea Nitrogen 3 Creatinine 0.63 Random Glucose 80 Calcium Level 8.7 Magnesium Level 1.6 Sodium Level 143 Potassium Level 2.9 Chloride Level 105 Carbon Dioxide Level 27.6 Anion Gap 10 Estimat Glomerular Filtration Rate 95 Date/Time Source Procedure Growth Status 11/08/17 16:53 Stool Stool Stool Occult Blood (FRACISCO) - Final HEMOCCULT NEGATIVE Complete Imaging Last Impressions Enema w/Water Soluble 11/09/17 0000 Signed Impressions: Service Date/Time: Thursday, November 09, 2017 17:19 - CONCLUSION: Linear area of colitis involving the mid and distal aspects of the descending colon. Naveed Gil MD Abdomen/Pelvis CT 11/07/17 0000 Signed Impressions: Service Date/Time: Tuesday, November 07, 2017 23:04 - CONCLUSION: Chronic partial colonic obstruction and appears to be on the basis of moderate diverticulitis superimposed on chronic diverticular disease in the region of the distal descending and proximal sigmoid colon. Underlying mass lesion not entirely excludable and if not done recently, direct visualization with colonoscopy recommended if felt clinically indicated. No small bowel distention. Naveed Scott MD Abdomen X-Ray 11/07/17 0000 Signed Impressions: Service Date/Time: Tuesday, November 07, 2017 13:13 - CONCLUSION: Predominantly colonic dilatation as above nonspecific. Ronal Becerra MD FACR Physical Exam HEENT: Normocephalic; atraumatic CHEST: Even/unlabored CARDIAC: RRR ABDOMEN: Soft, nondistended, LLQ tenderness, bowel sounds active SKIN: Normal; no rash; no jaundice. MORNING NEWS PRODUCER: No focal deficits; alert and oriented times three. (Rupali Serna [facility]) Assessment and Plan Plan ASSESSMENT - LLQ abdominal pain/distention with watery stool CT abdomen and pelvis W IV contrast (11/07) --> Chronic partial colonic obstruction and appears to be on the basis of moderate diverticulitis superimposed on chronic diverticular disease in the region of the distal descending and proximal sigmoid colon. Underlying mass lesion not entirely excludable. No small bowel distention. Colonoscopy (06/08) --> Severe diverticulosis in the sigmoid colon. Two sessile polyps in the transverse colon. Circumferential colitis in the descending and sigmoid colon , mucosa was edematous and erythematous. Internal and external hemorrhoids. Pathology ( transverse colon polyp) tubular adenoma (sigmoid colon) colonic mucosa without significant histologic abnormality. - Nausea/vomiting- now resolved- on clear liquid diet EGD (January 2017) --> Normal EGD - Anemia- normocytic- currently H/H 8.9/26.1 - Hemoccult stool negative (11/10) --> S/P colorectal eval by CRS, Dr. Brown, ordered Barium enema (11/09) - -> Linear area of colitis involving the mid and distal aspects of the descending colon. Per CRS notes, states possible diverting colostomy by segmental resection with possibility of a primary anastomosis at that time with or without temporary diversion, recommending slow prep over the next few days. Pt currently on clear liquid diet. PLAN - Further recommendations per GS - Flagyl - Zosyn - Clear liquid diet - GI will sign off, please reconsult as needed - Have pt follow up with GI after DC Pt has been seen and examined by myself and Dr. Vegas and this note is written on his behalf (Rupali Serna) Physician Comments Patient seen and examined Agree with above Continue with current supportive care Monitor labs Further plans as per the colorectal surgery service We will sign off (Steve Vegas MD) Rupali Serna Nov 10, 2017 14:20 Steve Vegas MD Nov 10, 2017 22:34
[2017-11-10 16:00] VITALS: BP 120/80; PULSE 95; RESP 19; TEMP 99.9; O2SAT 97
[2017-11-10 20:50] VITALS: BP 131/71; PULSE 94; RESP 18; TEMP 99.3; O2SAT 94
[2017-11-10] MEDS: MIRTAZAPINE 15 MG TAB PO SCH (22:23)
[2017-11-11] MEDS: metroNIDAZOLE 500 MG INJ 100 ML IV SCH ×3 (00:11→16:00)
[2017-11-11 00:26] VITALS: BP 129/66; PULSE 85; RESP 18; TEMP 98.1; O2SAT 94
[2017-11-11] MEDS: PIPERACIL-TAZO 3.375 GM PREMIX 50 ML IV SCH ×3 (00:55→16:00)
[2017-11-11 04:19] VITALS: BP 157/75; PULSE 80; RESP 18; TEMP 97.8; O2SAT 98
[2017-11-11 06:16] LABS: AUTOMATED NEUTROPHIL # 5.7 TH/MM3 (1.8-7.7); BASOPHIL % 0.6 % (0.0-2.0); EOSINOPHIL # 0.2 TH/MM3 (0-0.4); EOSINOPHIL % 2.3 % (0.0-4.0); HEMOGLOBIN 10.4 GM/DL (11.6-15.3); LYMPH % 20.9 % (9.0-44.0); LYMPHOCYTE # 1.7 TH/MM3 (1.0-4.8); MEAN CELL VOLUME 90.5 FL (80.0-100.0); MEAN CORPUSCULAR HEMOGLOBIN 30.4 PG (27.0-34.0); MEAN CORPUSCULAR HGB CONC 33.6 % (32.0-36.0); MEAN PLATELET VOLUME 7.3 FL (7.0-11.0); MONO % 7.1 % (0.0-8.0); MONOCYTE # 0.6 TH/MM3 (0-0.9); NEUT % 69.1 % (16.0-70.0); PLATELET COUNT 392 TH/MM3 (150-450); RED BLOOD COUNT 3.43 MIL/MM3 (4.00-5.30); RED CELL DISTRIBUTION WIDTH 14.9 % (11.6-17.2); WHITE BLOOD COUNT 8.2 TH/MM3 (4.0-11.0)
[2017-11-11 06:57] LABS: BICARBONATE 26.9 MEQ/L (21.0-32.0); CALCIUM 8.6 MG/DL (8.5-10.1); CREATININE 0.74 MG/DL (0.50-1.00); MAGNESIUM 1.5 MG/DL (1.5-2.5)
[2017-11-11 08:00] VITALS: BP 127/72; PULSE 91; RESP 16; TEMP 98.7; O2SAT 94
[2017-11-11] MEDS ORDERED: POTASSIUM CHLOR 20 MEQ PREMIX 100 ML IV ONE (09:00)
[2017-11-11] MEDS ORDERED: POTASSIUM CHLORIDE 20 MEQ CONTROLLED RELEASE TAB PO ONE (09:00)
[2017-11-11] MEDS: POLYETHYLENE GLYCOL 17 GM PKG PO SCH ×2 (10:38→21:19)
[2017-11-11] MEDS: PANTOPRAZOLE SOD 40 MG DELAYED RELEASE TAB PO SCH (10:38)
[2017-11-11] MEDS: HYDROCHLOROTHIAZIDE 25 MG TAB PO SCH (10:39)
[2017-11-11] MEDS: SODIUM CHLORIDE 0.9% FLUSH 10 ML FLUSH IV FLUSH SCH ×2 (10:40→21:20)
[2017-11-11 12:00] VITALS: BP 138/77; PULSE 87; RESP 16; TEMP 98.9; O2SAT 94
[2017-11-11] MEDS: SODIUM CHLOR 0.9% 1000 ML INJ 1,000 ML IV SCH ×2 (12:00→22:00)
--- NOTE | 2017-11-11 12:36 | HHI.PR ---
Subjective Remarks Sigmoid colon stricture, most likely diverticular denies pain Objective Vital Signs Date Time Temp Pulse Resp B/P (MAP) Pulse Ox O2 Delivery O2 Flow Rate FiO2 11/11/17 08:00 98.7 91 16 127/72 (90) 94 11/11/17 04:19 97.8 80 18 157/75 (102) 98 11/11/17 00:26 98.1 85 18 129/66 (87) 94 11/10/17 20:50 99.3 94 18 131/71 (91) 94 11/10/17 16:00 99.9 95 19 120/80 (93) 97 I/O 11/10/17 11/10/17 11/10/17 11/11/17 11/11/17 11/11/17 07:00 15:00 23:00 07:00 15:00 23:00 Intake Total 1368 ml 480 ml 480 ml Balance 1368 ml 480 ml 480 ml Intake Oral 240 ml 480 ml 480 ml IV Total 1128 ml # Voids 2 1 6 # Bowel Movements 1 5 Result Diagram: 11/11/17 0517 11/11/17 0517 Objective Remarks Abdomen soft, nondistended, no tenderness at this time Assessment and Plan Assessment and Plan continue gradual prep Pamela Humphrey MD Nov 11, 2017 12:36
--- NOTE | 2017-11-11 15:25 | HHI.PR ---
Subjective Remarks She is feeling better today. Currently no abdominal pain. She did have pain last night. No nausea or vomiting. Objective Vitals Vital Signs Date Time Temp Pulse Resp B/P (MAP) Pulse Ox O2 Delivery O2 Flow Rate FiO2 11/11/17 12:00 98.9 87 16 138/77 (97) 94 11/11/17 08:00 98.7 91 16 127/72 (90) 94 11/11/17 04:19 97.8 80 18 157/75 (102) 98 11/11/17 00:26 98.1 85 18 129/66 (87) 94 11/10/17 20:50 99.3 94 18 131/71 (91) 94 11/10/17 16:00 99.9 95 19 120/80 (93) 97 I/O 11/10/17 11/10/17 11/10/17 11/11/17 11/11/17 11/11/17 07:00 15:00 23:00 07:00 15:00 23:00 Intake Total 1368 ml 480 ml 480 ml Balance 1368 ml 480 ml 480 ml Intake Oral 240 ml 480 ml 480 ml IV Total 1128 ml # Voids 2 1 6 # Bowel Movements 1 5 Result Diagram: 11/11/17 0517 11/11/17 0517 Imaging Last Impressions Enema w/Water Soluble 11/09/17 0000 Signed Impressions: Service Date/Time: Thursday, November 09, 2017 17:19 - CONCLUSION: Linear area of colitis involving the mid and distal aspects of the descending colon. Naveed Gil MD Abdomen/Pelvis CT 11/07/17 0000 Signed Impressions: Service Date/Time: Tuesday, November 07, 2017 23:04 - CONCLUSION: Chronic partial colonic obstruction and appears to be on the basis of moderate diverticulitis superimposed on chronic diverticular disease in the region of the distal descending and proximal sigmoid colon. Underlying mass lesion not entirely excludable and if not done recently, direct visualization with colonoscopy recommended if felt clinically indicated. No small bowel distention. Naveed Scott MD Abdomen X-Ray 11/07/17 0000 Signed Impressions: Service Date/Time: Tuesday, November 07, 2017 13:13 - CONCLUSION: Predominantly colonic dilatation as above nonspecific. Ronal Becerra MD FACR Objective Remarks GENERAL: Patient looks more comfortable today. HEAD: Normocephalic. EYES: No scleral icterus. No injection or drainage. CARDIOVASCULAR: Regular rate and rhythm, I didn't auscultate a murmurs at this time. RESPIRATORY: Breath sounds equal bilaterally. No accessory muscle use. GASTROINTESTINAL: Abdomen soft, nontender on exam. Bowel sounds are hyperactive at times A/P Problem List: (1) Diverticulitis ICD Code: K57.92 - Diverticulitis of intestine, part unspecified, without perforation or abscess without bleeding Status: Acute (2) Colon distention ICD Code: K63.89 - Other specified diseases of intestine Status: Acute Assessment and Plan Large Bowel Obstruction secondary to diverticulitis. -GI and colorectal sx following. -Continue Zosyn 50ml Q 8 hours IV -Continue pain control. -Cont clear liquid -Zofran PRN -gastrografin enema shows linear area of colitis in mid, distal aspect of descending colon. -awaiting final recs from colorectal. OR next week 2. Anemia -normal MCV -likely due to rehydration -Hemoccult neg -If she has more diarrhea, order C.diff because she has been on multiple antibiotics recently. none reported 3. severe hypokalemia - continue to replace K levels. Repeat BMP this pm 4. Hypertension -Continue home HCTZ Discharge Planning continue current management. per colorectal sx, gradual prep for surgery next week Lynnette Campbell MD Nov 11, 2017 15:25
[2017-11-11 16:00] VITALS: BP 141/83; PULSE 90; RESP 16; TEMP 99.2; O2SAT 92
[2017-11-11 16:21] LABS: BICARBONATE 24.6 MEQ/L (21.0-32.0); CREATININE 0.65 MG/DL (0.50-1.00)
[2017-11-11 19:00] VITALS: BP 129/68; PULSE 95; RESP 16; TEMP 99.2; O2SAT 96
[2017-11-11] MEDS: MIRTAZAPINE 15 MG TAB PO SCH (21:16)
[2017-11-12] VITALS: BP 124/74; PULSE 96; RESP 18; TEMP 99.4; O2SAT 94
[2017-11-12] MEDS: metroNIDAZOLE 500 MG INJ 100 ML IV SCH ×4 (00:29→14:23)
[2017-11-12] MEDS: PIPERACIL-TAZO 3.375 GM PREMIX 50 ML IV SCH ×4 (01:56→14:23)
[2017-11-12 04:00] VITALS: BP 133/68; PULSE 97; RESP 18; TEMP 98.3; O2SAT 93
[2017-11-12 08:00] VITALS: BP 120/71; PULSE 96; RESP 18; TEMP 98.5; O2SAT 97
[2017-11-12] MEDS: PANTOPRAZOLE SOD 40 MG DELAYED RELEASE TAB PO SCH (08:31)
[2017-11-12] MEDS: HYDROCHLOROTHIAZIDE 25 MG TAB PO SCH (08:31)
[2017-11-12] MEDS: POLYETHYLENE GLYCOL 17 GM PKG PO SCH (08:31)
[2017-11-12] MEDS: SODIUM CHLORIDE 0.9% FLUSH 10 ML FLUSH IV FLUSH SCH ×2 (08:32→21:23)
[2017-11-12] MEDS: SODIUM CHLOR 0.9% 1000 ML INJ 1,000 ML IV SCH ×2 (08:32→18:00)
[2017-11-12] MEDS: ACETAMINOPHEN/HYDROcodone 325 MG/5 MG TAB PO PRN (08:42)
[2017-11-12 12:00] VITALS: BP 128/67; PULSE 82; RESP 18; TEMP 98.4; O2SAT 95
[2017-11-12] MEDS: ACETAMINOPHEN/HYDROcodone 325 MG/7.5 MG TAB PO PRN ×2 (15:05→21:22)
[2017-11-12 16:00] VITALS: BP 127/80; PULSE 98; RESP 18; TEMP 98.5; O2SAT 97
--- NOTE | 2017-11-12 17:02 | HHI.PR ---
Subjective Remarks Patient reports feeling ok. Having clear liquid stool Mild intermittent abdominal discomfort. Objective Vitals Vital Signs Date Time Temp Pulse Resp B/P (MAP) Pulse Ox O2 Delivery O2 Flow Rate FiO2 11/12/17 12:00 98.4 82 18 128/67 (87) 95 11/12/17 09:59 18 11/12/17 08:00 98.5 96 18 120/71 (87) 97 11/12/17 04:00 98.3 97 18 133/68 (89) 93 11/12/17 00:00 99.4 96 18 124/74 (91) 94 11/11/17 19:00 99.2 95 16 129/68 (88) 96 I/O 11/11/17 11/11/17 11/11/17 11/12/17 11/12/17 11/12/17 07:00 15:00 23:00 07:00 15:00 23:00 Intake Total 480 ml 720 ml 700 ml Balance 480 ml 720 ml 700 ml Intake Oral 480 ml 720 ml 600 ml IV Total 100 ml # Voids 6 4 2 # Bowel Movements 5 6 Result Diagram: 11/11/17 0517 11/11/17 1548 Objective Remarks GENERAL: No acute distress. CARDIOVASCULAR: Regular rate and rhythm. RESPIRATORY: No accessory muscle use. Clear to auscultation. Breath sounds equal bilaterally. GASTROINTESTINAL: Abdomen soft, mild diffuse tenderness to palpation. Hepatic and splenic margins not palpable. MUSCULOSKELETAL: Extremities without clubbing, cyanosis, or edema. No obvious deformities. NEUROLOGICAL: Awake and alert. No obvious cranial nerve deficits. Normal speech. PSYCHIATRIC: Appropriate mood and affect; insight and judgment normal. A/P Problem List: (1) Diverticulitis ICD Code: K57.92 - Diverticulitis of intestine, part unspecified, without perforation or abscess without bleeding Status: Acute (2) Colon distention ICD Code: K63.89 - Other specified diseases of intestine Status: Acute Assessment and Plan Large Bowel Obstruction secondary to diverticulitis. -GI and colorectal sx following. -Continue Zosyn 50ml Q 8 hours IV -Continue pain control. -Cont clear liquid -Zofran PRN -gastrografin enema shows linear area of colitis in mid, distal aspect of descending colon. -Colorectal surgery following. Planning for colectomy tomorrow 2. Anemia -normal MCV -likely due to rehydration -Hemoccult neg 3. Hypokalemia: Secondary to GI loss - continue to replace K. Repeat BMP this pm 4. Hypertension -Continue home HCTZ David Hernandez MD Nov 12, 2017 17:02
--- NOTE | 2017-11-12 17:16 | HHI.PR ---
Subjective Remarks C/R Surg afebrile, VSS liq stool no N/V Objective - Vital Signs Date Time Temp Pulse Resp B/P (MAP) Pulse Ox O2 Delivery O2 Flow Rate FiO2 11/12/17 12:00 98.4 82 18 128/67 (87 95 Result Diagram: 11/11/17 0517 11/11/17 1548 Objective Remarks PE alert Abd - soft, flat, non-tender A/P Assessment and Plan Imp: for surgery tomorrow gentle bowel prep NPO after Jeffrey Waters MD Nov 12, 2017 17:16
[2017-11-12] MEDS ORDERED: SODIUM CHLORID 0.9% 500 ML IV PRN (21:00)
[2017-11-12] MEDS ORDERED: LACTATED RINGER'S 1000 ML IV PRN (21:00)
[2017-11-12] MEDS ORDERED: POVIDONE IODINE 5% (ANTISEPSIS KIT) 4 APPLICATIONS EACH NARE PRN (21:15)
[2017-11-12] MEDS ORDERED: METOPROLOL TARTRATE 25 MG TAB PO PRN (21:15)
[2017-11-12] MEDS ORDERED: CHLORHEXIDINE GLUCONATE 2 % 1 PACK (2 CLOTHS) TOPICAL PRN (21:15)
[2017-11-12] MEDS: MIRTAZAPINE 15 MG TAB PO SCH (21:23)
[2017-11-12 22:05] VITALS: BP 150/75; PULSE 73; RESP 16; TEMP 98.4; O2SAT 98
[2017-11-13] MEDS: metroNIDAZOLE 500 MG INJ 100 ML IV SCH ×5 (00:57→23:24)
[2017-11-13] MEDS: PIPERACIL-TAZO 3.375 GM PREMIX 50 ML IV SCH ×4 (00:57→23:33)
[2017-11-13] MEDS: POTASSIUM CHLOR 20 MEQ PREMIX 100 ML IV SCH ×4 (01:00→23:07)
[2017-11-13 02:37] VITALS: BP 113/62; PULSE 84; RESP 15; TEMP 98.1; O2SAT 95
[2017-11-13 05:16] LABS: HEMATOCRIT 31.7 % (35.0-46.0); HEMOGLOBIN 10.7 GM/DL (11.6-15.3); MEAN CELL VOLUME 89.9 FL (80.0-100.0); MEAN CORPUSCULAR HEMOGLOBIN 30.4 PG (27.0-34.0); MEAN CORPUSCULAR HGB CONC 33.9 % (32.0-36.0); PLATELET COUNT 459 TH/MM3 (150-450); RED BLOOD COUNT 3.53 MIL/MM3 (4.00-5.30); RED CELL DISTRIBUTION WIDTH 15.1 % (11.6-17.2); WHITE BLOOD COUNT 7.9 TH/MM3 (4.0-11.0)
--- NOTE | 2017-11-13 05:28 | EKG ---
Date Performed: 11/12/2017 Time Performed: 20:45:18 PTAGE: 67 years EKG: Sinus rhythm WITH OCCASIONAL VENTRICULAR PREMATURE COMPLEXES BORDERLINE LEFT AXIS DEVIATION NONSPECIFIC ST & T-WA VE ABNORMALITY BORDERLINE ECG PREVIOUS TRACING : 09/16/2017 14.34 Compared to previous tracing, nonspecific ST/T changes are now present. DOCTOR: Nick Contreras Interpretating Date/Time 11/13/2017 05:28:06
[2017-11-13 05:30] LABS: BICARBONATE 27.7 MEQ/L (21.0-32.0); CALCIUM 8.5 MG/DL (8.5-10.1); CREATININE 0.61 MG/DL (0.50-1.00)
[2017-11-13 05:39] VITALS: BP 117/64; PULSE 88; RESP 16; TEMP 98.3; O2SAT 96
[2017-11-13] MEDS ORDERED: POTASSIUM CHLORIDE 25 MEQ EFFERVESCENT TAB PO ONE ×2 (06:15→19:45)
[2017-11-13 08:00] VITALS: BP 120/69; PULSE 93; RESP 18; TEMP 98.8; O2SAT 94
[2017-11-13] MEDS: HYDROCHLOROTHIAZIDE 25 MG TAB PO SCH (09:28)
[2017-11-13] MEDS: ACETAMINOPHEN/HYDROcodone 325 MG/7.5 MG TAB PO PRN (09:28)
[2017-11-13] MEDS: PANTOPRAZOLE SOD 40 MG DELAYED RELEASE TAB PO SCH (09:28)
[2017-11-13] MEDS: SODIUM CHLORIDE 0.9% FLUSH 10 ML FLUSH IV FLUSH SCH ×2 (09:29→23:10)
--- NOTE | 2017-11-13 11:55 | HHI.PR ---
Subjective Remarks Somewhat anxious with surgery today. Pain is controlled. No nausea or vomiting. K is low. Objective Vitals Vital Signs Date Time Temp Pulse Resp B/P (MAP) Pulse Ox O2 Delivery O2 Flow Rate FiO2 11/13/17 08:00 98.8 93 18 120/69 (86) 94 11/13/17 05:39 98.3 88 16 117/64 (81) 96 11/13/17 02:37 98.1 84 15 113/62 (79) 95 11/12/17 22:05 98.4 73 16 150/75 (100) 98 11/12/17 16:00 98.5 98 18 127/80 (96) 97 11/12/17 12:00 98.4 82 18 128/67 (87) 95 I/O 11/12/17 11/12/17 11/12/17 11/13/17 11/13/17 11/13/17 07:00 15:00 23:00 07:00 15:00 23:00 Intake Total 700 ml 240 ml Balance 700 ml 240 ml Intake Oral 600 ml 240 ml IV Total 100 ml # Voids 2 2 # Bowel Movements 2 Result Diagram: 11/13/17 0454 11/13/17 0454 Objective Remarks GENERAL: No acute distress. CARDIOVASCULAR: Regular rate and rhythm. RESPIRATORY: No accessory muscle use. Clear to auscultation. Breath sounds equal bilaterally. GASTROINTESTINAL: Abdomen soft, mild diffuse tenderness to palpation. Hepatic and splenic margins not palpable. MUSCULOSKELETAL: Extremities without clubbing, cyanosis, or edema. No obvious deformities. NEUROLOGICAL: Awake and alert. No obvious cranial nerve deficits. Normal speech. PSYCHIATRIC: Appropriate mood and affect; insight and judgment normal. A/P Problem List: (1) Diverticulitis ICD Code: K57.92 - Diverticulitis of intestine, part unspecified, without perforation or abscess without bleeding Status: Acute (2) Colon distention ICD Code: K63.89 - Other specified diseases of intestine Status: Acute Assessment and Plan 67-year-old female with: Large Bowel Obstruction secondary to diverticulitis. -GI and colorectal sx following. -Continue Zosyn 50ml Q 8 hours IV -Continue pain control. -Cont clear liquid -Zofran PRN -Gastrografin enema shows linear area of colitis in mid, distal aspect of descending colon. -Colorectal surgery following. Planning for colectomy today Anemia -normal MCV -likely due to rehydration -Hemoccult neg Hypokalemia: Secondary to GI loss - continue to replace K. -Magnesium borderline, give 1 g. Follow-up MP in a.m. Hypertension -Continue home HCTZ David Hernandez MD Nov 13, 2017 11:55
[2017-11-13] MEDS ORDERED: ePHEDrine/NS 25 MG/5 ML SYRINGE IV ONE (12:00)
[2017-11-13] MEDS ORDERED: LIDOCAINE HCL 1% PF 5 ML SYRINGE OTHER ONE (12:00)
[2017-11-13] MEDS ORDERED: ROCURONIUM INJ 50 MG/5 ML SYRINGE IV PUSH ONE (12:00)
[2017-11-13] MEDS ORDERED: PROPOFOL 200 MG/20 ML AMP IV ONE (12:00)
[2017-11-13] MEDS ORDERED: PHENYLEPH/NS 1000 MCG/10 ML SYR IV ONE (12:00)
[2017-11-13] MEDS ORDERED: DEXAMETHASONE SOD PHOS 4 MG/ML VIAL IV ONE (12:00)
[2017-11-13] MEDS ORDERED: ONDANSETRON HCL 4 MG/2 ML VIAL IV ONE (12:00)
[2017-11-13] MEDS ORDERED: GLUCAGON 1 MG/ML VIAL ONE (13:03)
[2017-11-13] MEDS ORDERED: BUPIVACAINE HCL PF 0.5% 30 ML VIAL ONE (13:03)
[2017-11-13] MEDS ORDERED: MAGNESIUM SULFATE 1 GM PREMIX 100 ML IV ONE (15:00)
[2017-11-13] MEDS ORDERED: MIDAZOLAM HCL 2 MG/2 ML VIAL ONE (15:09)
[2017-11-13] MEDS ORDERED: SUGAMMADEX SODIUM 200 MG/2 ML VIAL IV PUSH ONE (15:14)
[2017-11-13] MEDS ORDERED: ACETAMINOPHEN 1000 MG/100 ML 100 ML IV ONE (15:14)
[2017-11-13] MEDS ORDERED: HYDROmorphone HCL PF 2 MG/ML VIAL ONE (15:14)
[2017-11-13] MEDS ORDERED: NALOXONE HCL 0.4 MG/ML AMP IV PUSH PRN (16:30)
[2017-11-13] MEDS: PCA - TOTAL MG MORPHINE DELIVERED PER SHIFT SCH ×2 (16:30→22:00)
[2017-11-13] MEDS ORDERED: DO NOT ADM ANY ANTICOAGULANT DRUGS PRN (16:35)
[2017-11-13] MEDS ORDERED: *morphine SULFATE 4 MG/ML PERIprocedure ONLY ONE ×2 (16:39→16:48)
[2017-11-13] MEDS ORDERED: *MEPERIDINE 25 MG INJ VIAL PERIprocedural Use ONLY ONE (17:03)
--- NOTE | 2017-11-13 17:12 | RADRPT ---
EXAM DATE/TIME: 11/13/2017 16:42 [facility] COMPARISON: CHEST SINGLE AP, September 16, 2017, 14:04. INDICATIONS : Post central line placement MEDICAL HISTORY : Diverticulitis. SURGICAL HISTORY : acetabular fracture ENCOUNTER: Initial ACUITY: 1 day PAIN SCORE: Non-responsive. LOCATION: Bilateral chest FINDINGS: Single AP view of the chest. Left subclavian central venous catheter in place with the tip at the cav oatrial junction. Mild patchy opacity at the lung bases indicating atelectasis. The lungs are otherwi se clear. Cardiomediastinal silhouette within normal limits. No evidence of pleural effusion or pneum othorax. CONCLUSION: 1. Left subclavian central venous catheter tip in the region of the cavoatrial junction. No evidence of pneumothorax. 2. Mild bilateral lower lung zone opacity likely representing atelectasis. Nito Max MD on November 13, 2017 at 17:08 Board Certified Radiologist. This report was verified electronically.
[2017-11-13] MEDS ORDERED: HYDROmorphone HCL PF 0.5 MG/0.5 ML SYRINGE ONE (17:16)
[2017-11-13] MEDS: POTASSIUM CHLORIDE INJ 30 MEQ in SODIUM CHLOR 0.9% 1000 ML INJ 1,000 ML IV SCH ×2 (17:25→23:33)
[2017-11-13] MEDS: MORPHINE SULFATE 30 MG/30 ML PCA IV SCH (17:25)
[2017-11-13] MEDS ORDERED: *HYDROmorphone PF 0.5 MG/0.5 ML PERIprocedure ONLY ONE ×3 (17:32→17:58)
[2017-11-13] MEDS ORDERED: *hydrOXYzine 25 MG VIAL PERIprocedural Use ONLY IM ONE (18:11)
[2017-11-13 18:28] LABS: BICARBONATE 23.8 MEQ/L (21.0-32.0); CALCIUM 8.4 MG/DL (8.5-10.1); CREATININE 0.52 MG/DL (0.50-1.00)
[2017-11-13 19:00] VITALS: BP 111/63; PULSE 106; PULSE 95; RESP 18; TEMP 98.2; O2SAT 95
[2017-11-13 22:18] VITALS: O2SAT 98
[2017-11-13 23:00] VITALS: BP 120/72; PULSE 97; PULSE 99; RESP 18; TEMP 98.9; O2SAT 95
[2017-11-13] MEDS: MIRTAZAPINE 15 MG TAB PO SCH (23:08)
[2017-11-14 03:00] VITALS: BP 137/76; PULSE 89; PULSE 92; RESP 16; TEMP 98.3; O2SAT 99
[2017-11-14] MEDS: ACETAMINOPHEN/HYDROcodone 325 MG/7.5 MG TAB PO PRN ×2 (04:06→21:12)
[2017-11-14] MEDS: POTASSIUM CHLORIDE INJ 30 MEQ in SODIUM CHLOR 0.9% 1000 ML INJ 1,000 ML IV SCH ×3 (04:36→21:45)
[2017-11-14 05:23] LABS: HEMATOCRIT 30.6 % (35.0-46.0); HEMOGLOBIN 10.3 GM/DL (11.6-15.3); MEAN CELL VOLUME 90.8 FL (80.0-100.0); MEAN CORPUSCULAR HEMOGLOBIN 30.6 PG (27.0-34.0); MEAN CORPUSCULAR HGB CONC 33.7 % (32.0-36.0); MEAN PLATELET VOLUME 7.1 FL (7.0-11.0); PLATELET COUNT 462 TH/MM3 (150-450); RED BLOOD COUNT 3.37 MIL/MM3 (4.00-5.30); RED CELL DISTRIBUTION WIDTH 15.5 % (11.6-17.2); WHITE BLOOD COUNT 14.5 TH/MM3 (4.0-11.0)
[2017-11-14 05:34] LABS: BICARBONATE 23.7 MEQ/L (21.0-32.0); CALCIUM 8.2 MG/DL (8.5-10.1); CREATININE 0.58 MG/DL (0.50-1.00); MAGNESIUM 1.6 MG/DL (1.5-2.5)
[2017-11-14] MEDS: PCA - TOTAL MG MORPHINE DELIVERED PER SHIFT SCH ×3 (06:00→21:45)
[2017-11-14 07:15] VITALS: BP 139/86; PULSE 103; PULSE 108; RESP 18; TEMP 98.8; O2SAT 96
[2017-11-14] MEDS: metroNIDAZOLE 500 MG INJ 100 ML IV SCH ×2 (08:31→15:44)
[2017-11-14] MEDS: HYDROCHLOROTHIAZIDE 25 MG TAB PO SCH (08:32)
[2017-11-14] MEDS: SODIUM CHLORIDE 0.9% FLUSH 10 ML FLUSH IV FLUSH SCH ×2 (08:32→21:00)
[2017-11-14] MEDS: PANTOPRAZOLE SOD 40 MG DELAYED RELEASE TAB PO SCH (08:32)
[2017-11-14] MEDS: PANTOPRAZOLE SODIUM 40 MG VIAL IV PUSH SCH (08:32)
[2017-11-14] MEDS: PIPERACIL-TAZO 3.375 GM PREMIX 50 ML IV SCH ×2 (08:32→15:43)
--- NOTE | 2017-11-14 09:37 | HHI.PR ---
Subjective Remarks C/R Surg POD #1 afebrile, VSS UO good no N/V Objective - Vital Signs Date Time Temp Pulse Resp B/P (MAP) Pulse Ox O2 Delivery O2 Flow Rate FiO2 11/14/17 07:15 103 11/14/17 07:15 98.8 18 139/86 (103) 96 11/13/17 22:18 21 11/13/17 18:45 Nasal Cannula 2 Result Diagram: 11/14/17 0501 11/14/17 0501 Objective Remarks PE alert Abd - soft, flat, non-tender, wound dry A/P Assessment and Plan Imp: stable post-op OOB decr IVF tx to floor Jeffrey Brown MD Nov 14, 2017 09:37
--- NOTE | 2017-11-14 10:05 | MP ---
cc: Jeffrey Brown MD DATE OF OPERATION: 11/13/2017 PREOPERATIVE DIAGNOSES: Colonic stricture, acute colitis. PROCEDURE: Exploratory laparotomy with total abdominal colectomy and ileosigmoid anastomosis. POSTOPERATIVE DIAGNOSES: Acute colitis with a colonic stricture. SURGEON: Dr. Brown. UX DEVELOPER DESIGNER: Dr. Mario Cabral. PROCEDURE: The patient was placed in the supine position. After adequate general anesthesia, her legs were placed in the universal stirrups and supported appropriately. The abdomen and perineum were then prepped with Betadine solution and draped in the usual sterile fashion. With Dr. Cabral's assistance, the abdomen was opened through a midline incision. Exploration revealed very few adhesions. The rectum and sigmoid appeared to be normal with a transition zone in the proximal sigmoid with extensive inflammatory changes to the colon and stricture narrowing of the descending colon around the splenic flexure encompassing part of the transverse colon. The right side of the transverse colon appeared to be more normal, although the bowel was quite thick and edematous. The right colon appeared to have severe serosal changes consistent with active colitis right down to the cecum. The terminal ileum; however, appeared to be normal and the small bowel was run from ligament of Treitz down to the ileocecal valve and felt to be normal. The liver and gallbladder were unremarkable. The stomach and duodenum were normal. Uterus and ovaries were appropriate for the patient's age. The great vessels were of normal caliber and fairly soft to palpation. First, the sigmoid colon was mobilized medially by dividing along the white line of Toldt. There was quite a bit of inflammatory reaction tethering the left colon to the retroperitoneum and the Gerota fascia. This was eventually freed up, identifying the left ureter and preserving it along its entire course. Dissection proceeded up taking down attachments to the splenic flexure entering the lesser sac and taking the gastrocolic omentum off the transverse colon. The right colon was then mobilized medially by dividing along the white line of Toldt. The right ureter was identified and carefully preserved. Dissection then proceeded up finishing the colonic mobilization by taking down the hepatic flexure and freeing the remainder of the gastrocolic omentum off the transverse colon. At this point, it appeared severe disease was present in the proximal sigmoid, descending colon up to the transverse colon and the right colon appeared to be severely diseased. The short segment in the transverse colon appeared to be too limited to save therefore, a total abdominal colectomy was undertaken. The bowel was then divided in the terminal ileum using the DANIELLE stapling device. The major vascular pedicles taken between Kellys obtaining hemostasis with Vicryl ties. In the rectosigmoid the pedicle for the superior hemorrhoidal vessels was saved and several of the sigmoidal branches taken dividing the bowel in the mid to distal sigmoid where the bowel appeared to be more normal in thickness and serosal appearance. The bowel was then divided using the DANIELLE stapling device and the specimen removed. Bowel continuity was then restored by firing of the GI stapler across the antimesenteric ends of the bowel, closing the enterotomy with a TA 60 stapler. The mesenteric defect was actually able to be closed with a running Vicryl suture and a 3-0 Vicryl crotch suture was placed as well. Abdomen is irrigated copiously with normal saline. Hemostasis achieved at all sites. The midline incision was closed anatomically in 1 layer using #1 PDS sutures to reapproximate the midline fascia. The subcutaneous tissues were irrigated copiously and the skin closed with a running subcuticular Vicryl suture. Wound area washed with normal saline and dried, sterile dressing of Telfa and gauze applied. The patient tolerated the procedure quite well and was brought to the recovery room in stable condition. Sponge and needle counts were correct at the end of the procedure. Jeffrey Brown MD AHR/TL , 09:45 AM , 10:04 AM
[2017-11-14 11:00] VITALS: BP 139/90; PULSE 96; RESP 18; TEMP 98.1; O2SAT 94
[2017-11-14] MEDS: ONDANSETRON HCL 4 MG/2 ML VIAL IVP PRN (11:09)
[2017-11-14] MEDS: MORPHINE SULFATE 30 MG/30 ML PCA IV SCH (12:30)
[2017-11-14 15:00] VITALS: BP 120/64; PULSE 90; RESP 18; TEMP 97.8; O2SAT 95
[2017-11-14 20:00] VITALS: BP 133/71; PULSE 90; RESP 16; TEMP 99.6; O2SAT 93
[2017-11-14] MEDS ORDERED: AMBI10TA PO (21:09)
[2017-11-14] MEDS: MIRTAZAPINE 15 MG TAB PO SCH (21:12)
[2017-11-14] MEDS: ZOLPIDEM TARTRATE 10 MG TAB PO PRN (21:44)
--- NOTE | 2017-11-14 22:49 | HHI.PR ---
Subjective Remarks Patient seen today around 2 PM. She says she is feeling hungry, would like to eat. Denies any chest pain or shortness of breath. No bowel movements yet. Objective Vital Signs Date Time Temp Pulse Resp B/P (MAP) Pulse Ox O2 Delivery O2 Flow Rate FiO2 11/14/17 21:45 16 11/14/17 20:00 99.6 90 16 133/71 (91) 93 11/14/17 15:00 97.8 90 18 120/64 (82) 95 11/14/17 11:00 98.1 96 18 139/90 (106) 94 11/14/17 07:15 103 11/14/17 07:15 98.8 108 18 139/86 (103) 96 11/14/17 06:16 14 11/14/17 06:15 14 11/14/17 06:00 14 11/14/17 03:00 89 11/14/17 03:00 98.3 92 16 137/76 (96) 99 11/13/17 23:00 97 11/13/17 23:00 98.9 99 18 120/72 (88) 95 I/O 11/13/17 11/13/17 11/13/17 11/14/17 11/14/17 11/14/17 07:00 15:00 23:00 07:00 15:00 23:00 Intake Total 2190 ml 2614 ml 150 ml 0 ml Output Total 800 ml 825 ml 800 ml Balance 1390 ml 1789 ml 150 ml -800 ml Intake Oral 0 ml 480 ml 0 ml IV Total 2190 ml 2134 ml 150 ml Output Urine Total 700 ml 825 ml 800 ml Estimated Blood Loss 100 ml # Bowel Movements 0 0 0 Result Diagram: 11/14/17 0501 11/14/17 0501 Objective Remarks GENERAL: patient sitting up in bed. Appears comfortable. SKIN: Warm and dry. HEAD: Normocephalic. EYES: No scleral icterus. No injection or drainage. NECK: Supple, trachea midline. No JVD or lymphadenopathy. CARDIOVASCULAR: Regular rate and rhythm without murmurs, gallops, or rubs. RESPIRATORY: Breath sounds equal bilaterally. No accessory muscle use. GASTROINTESTINAL: Abdomen soft, non-tender, nondistended. postsurgical dressing intact. MUSCULOSKELETAL: No cyanosis, or edema. BACK: Nontender without obvious deformity. No CVA tenderness. A/P Assessment and Plan 67-year-old female with: //Large Bowel Obstruction secondary to diverticulitis. -GI and colorectal sx following. -Continue Zosyn 50ml Q 8 hours IV -Continue pain control. -Cont clear liquid -Zofran PRN -Gastrografin enema shows linear area of colitis in mid, distal aspect of descending colon. -Colorectal surgery following. Planning for colectomy today = 11/14. Postoperative day 1 status post colectomy. Postsurgical management and diet as per surgical service. //Anemia -normal MCV -likely due to rehydration -Hemoccult neg = 11/14. Hemoglobin stable. Continue to monitor for bleeding. //Hypokalemia: Secondary to GI loss - continue to replace K. -Magnesium borderline, give 1 g. Follow-up MP in a.m. = Hypokalemia appears to have resolved. Continue to monitor. //Hypokalemia. = 11/14. Potassium 5.3. Recheck tomorrow. //Hypertension -Continue home HCTZ Discharge Planning PT consult ordered. Fahad Reddy MD Nov 14, 2017 22:49
[2017-11-15] VITALS: BP 124/62; PULSE 104; RESP 16; TEMP 99; O2SAT 95
[2017-11-15] MEDS: DEXT 5%-NACL 0.45% 1000 ML INJ 1,000 ML IV SCH ×2 (02:56→12:24)
[2017-11-15 04:00] VITALS: BP 96/58; PULSE 100; RESP 16; TEMP 99; O2SAT 96
[2017-11-15 04:43] LABS: AUTOMATED NEUTROPHIL # 9.8 TH/MM3 (1.8-7.7); BASOPHIL # 0.1 TH/MM3 (0-0.2); BASOPHIL % 0.7 % (0.0-2.0); EOSINOPHIL # 0.3 TH/MM3 (0-0.4); EOSINOPHIL % 2.4 % (0.0-4.0); HEMATOCRIT 25.9 % (35.0-46.0); HEMOGLOBIN 8.9 GM/DL (11.6-15.3); LYMPH % 15.6 % (9.0-44.0); MEAN CELL VOLUME 90.7 FL (80.0-100.0); MEAN CORPUSCULAR HEMOGLOBIN 31.4 PG (27.0-34.0); MEAN CORPUSCULAR HGB CONC 34.6 % (32.0-36.0); MEAN PLATELET VOLUME 7.1 FL (7.0-11.0); MONO % 5.7 % (0.0-8.0); MONOCYTE # 0.7 TH/MM3 (0-0.9); NEUT % 75.6 % (16.0-70.0); PLATELET COUNT 408 TH/MM3 (150-450); RED BLOOD COUNT 2.85 MIL/MM3 (4.00-5.30); RED CELL DISTRIBUTION WIDTH 15.4 % (11.6-17.2)
[2017-11-15 05:08] LABS: BICARBONATE 25.8 MEQ/L (21.0-32.0); CALCIUM 8.4 MG/DL (8.5-10.1); CREATININE 0.54 MG/DL (0.50-1.00); MAGNESIUM 1.5 MG/DL (1.5-2.5); PHOSPHORUS 1.5 MG/DL (2.5-4.9)
[2017-11-15 07:15] VITALS: BP 113/66; PULSE 90; RESP 20; TEMP 98.9; O2SAT 99
--- NOTE | 2017-11-15 07:18 | HHI.PR ---
Subjective Remarks C/R Surg POD #2 afebrile, VSS UO good no N/V Objective - Vital Signs Date Time Temp Pulse Resp B/P (MAP) Pulse Ox O2 Delivery O2 Flow Rate FiO2 11/15/17 04:00 99.0 100 16 96/58 (71) 96 11/13/17 22:18 21 11/13/17 18:45 Nasal Cannula 2 Result Diagram: 11/15/1739911/15/17 0400 Objective Remarks PE alert Abd - soft, flat, non-tender, wound dry +flatus A/P Assessment and Plan Imp: OOB decr IVF tx to floor adv diet dc Jeffrey Gomez MD Nov 15, 2017 07:18
[2017-11-15] MEDS: PANTOPRAZOLE SOD 40 MG DELAYED RELEASE TAB PO SCH (08:58)
[2017-11-15] MEDS: SODIUM CHLORIDE 0.9% FLUSH 10 ML FLUSH IV FLUSH SCH ×2 (08:58→22:39)
[2017-11-15] MEDS: HYDROCHLOROTHIAZIDE 12.5 MG CAP PO SCH (08:59)
[2017-11-15] MEDS: PANTOPRAZOLE SODIUM 40 MG VIAL IV PUSH SCH (08:59)
[2017-11-15 11:00] VITALS: BP 139/71; PULSE 115; RESP 20; TEMP 99; O2SAT 95
[2017-11-15] MEDS: ACETAMINOPHEN/HYDROcodone 325 MG/5 MG TAB PO PRN (11:46)
[2017-11-15] MEDS: PCA - TOTAL MG MORPHINE DELIVERED PER SHIFT SCH ×2 (13:47→22:00)
[2017-11-15 15:00] VITALS: BP 107/57; PULSE 101; RESP 20; TEMP 98.7; O2SAT 97
[2017-11-15 20:00] VITALS: BP 108/60; PULSE 122; RESP 18; TEMP 99.4; O2SAT 96
[2017-11-15] MEDS: MIRTAZAPINE 15 MG TAB PO SCH (22:33)
[2017-11-15] MEDS: ZOLPIDEM TARTRATE 10 MG TAB PO PRN (22:33)
--- NOTE | 2017-11-15 23:43 | HHI.PR ---
Subjective Remarks Patient seen today around 2 PM. Says she is generally feeling okay. Sleeping, wakes up for exam. She reports constant sharp pain in her pelvis. She reports initially with pelvic fracture 1 month ago. She says postoperatively, however she felt like her pelvis at the table to hard and now the pain is worse. She is able to support weight, and nurses report she is walking. Patient says she would like to file a report, and I have requested assistance from nursing Objective Vital Signs Date Time Temp Pulse Resp B/P (MAP) Pulse Ox O2 Delivery O2 Flow Rate FiO2 11/15/17 22:00 16 11/15/17 20:00 99.4 122 18 108/60 (76) 96 11/15/17 15:00 98.7 101 20 107/57 (74) 97 11/15/17 11:00 99.0 115 20 139/71 (93) 95 11/15/17 07:15 98.9 90 20 113/66 (82) 99 11/15/17 04:00 99.0 100 16 96/58 (71) 96 11/15/17 00:00 99.0 104 16 124/62 (82) 95 I/O 11/15/17 11/15/17 11/15/17 11/16/17 11/16/17 11/16/17 07:00 15:00 23:00 07:00 15:00 23:00 Intake Total 240 ml 1000 ml 960 ml Output Total 1500 ml 1500 ml Balance -1260 ml 1000 ml -540 ml Intake Oral 240 ml 960 ml IV Total 1000 ml Output Urine Total 1500 ml 1500 ml # Bowel Movements 1 Result Diagram: 11/15/17 0400 11/15/17 0400 Objective Remarks GENERAL: patient sitting up in bed. Appears comfortable.sleeping, wakes up for exam. SKIN: Warm and dry. HEAD: Normocephalic. EYES: No scleral icterus. No injection or drainage. NECK: Supple, trachea midline. No JVD or lymphadenopathy. CARDIOVASCULAR: Regular rate and rhythm without murmurs, gallops, or rubs. RESPIRATORY: Breath sounds equal bilaterally. No accessory muscle use. GASTROINTESTINAL: Abdomen soft, non-tender, nondistended. postsurgical dressing intact. MUSCULOSKELETAL: No cyanosis, or edema. strength intact lateral lower extremity is. BACK: Nontender without obvious deformity. No CVA tenderness. A/P Assessment and Plan ========4. ======= //Hyperkalemia resolved. 4.7 //Postoperative leukocytosis improving 13.7. Secondary to stress //Recent pelvic fracture, with recent worsening in pain. Continue narcotics as necessary. We'll order x-ray to rule out displacement, however patient is supporting weight reportedly without difficulty. Per nursing. Continue to monitor. //Anemia. Hemoglobin down to 8.9 from 10 yesterday. Likely postsurgical. No signs of acute bleeding. Continue to monitor. 67-year-old female with: //Large Bowel Obstruction secondary to diverticulitis. -GI and colorectal sx following. -Continue Zosyn 50ml Q 8 hours IV -Continue pain control. -Cont clear liquid -Zofran PRN -Gastrografin enema shows linear area of colitis in mid, distal aspect of descending colon. -Colorectal surgery following. Planning for colectomy today = 11/14. Postoperative day 1 status post colectomy. Postsurgical management and diet as per surgical service. //Anemia -normal MCV -likely due to rehydration -Hemoccult neg = 11/14. Hemoglobin stable. Continue to monitor for bleeding. //Hypokalemia: Secondary to GI loss - continue to replace K. -Magnesium borderline, give 1 g. Follow-up MP in a.m. = Hypokalemia appears to have resolved. Continue to monitor. //Hypokalemia. = 11/14. Potassium 5.3. Recheck tomorrow. //Hypertension -Continue home HCTZ Discharge Planning PT recommends home health. Will need surgical clearance. Fahad Reddy MD Nov 15, 2017 23:43
[2017-11-16] VITALS: BP 101/58; PULSE 88; RESP 18; TEMP 98.4; O2SAT 100
[2017-11-16] MEDS: PCA - TOTAL MG MORPHINE DELIVERED PER SHIFT SCH (06:00)
[2017-11-16] MEDS: DEXT 5%-NACL 0.45% 1000 ML INJ 1,000 ML IV SCH ×2 (06:05→21:44)
[2017-11-16 06:43] LABS: AUTOMATED NEUTROPHIL # 10.5 TH/MM3 (1.8-7.7); BASOPHIL % 0.2 % (0.0-2.0); EOSINOPHIL # 0.2 TH/MM3 (0-0.4); EOSINOPHIL % 1.8 % (0.0-4.0); HEMATOCRIT 24.7 % (35.0-46.0); HEMOGLOBIN 8.5 GM/DL (11.6-15.3); LYMPH % 10.2 % (9.0-44.0); LYMPHOCYTE # 1.3 TH/MM3 (1.0-4.8); MEAN CELL VOLUME 89.2 FL (80.0-100.0); MEAN CORPUSCULAR HEMOGLOBIN 30.7 PG (27.0-34.0); MEAN CORPUSCULAR HGB CONC 34.4 % (32.0-36.0); MONO % 5.3 % (0.0-8.0); MONOCYTE # 0.7 TH/MM3 (0-0.9); NEUT % 82.5 % (16.0-70.0); PLATELET COUNT 403 TH/MM3 (150-450); RED BLOOD COUNT 2.77 MIL/MM3 (4.00-5.30); RED CELL DISTRIBUTION WIDTH 15.1 % (11.6-17.2); WHITE BLOOD COUNT 12.7 TH/MM3 (4.0-11.0)
[2017-11-16 07:25] LABS: BICARBONATE 30.1 MEQ/L (21.0-32.0); CALCIUM 8.4 MG/DL (8.5-10.1); CREATININE 0.53 MG/DL (0.50-1.00); MAGNESIUM 1.4 MG/DL (1.5-2.5); PHOSPHORUS 1.6 MG/DL (2.5-4.9)
[2017-11-16 08:00] VITALS: BP 135/64; PULSE 107; RESP 17; TEMP 98.9; O2SAT 96
[2017-11-16] MEDS: PANTOPRAZOLE SODIUM 40 MG VIAL IV PUSH SCH (09:00)
[2017-11-16] MEDS: SODIUM CHLORIDE 0.9% FLUSH 10 ML FLUSH IV FLUSH SCH ×2 (09:00→23:08)
[2017-11-16] MEDS: PANTOPRAZOLE SOD 40 MG DELAYED RELEASE TAB PO SCH (09:18)
[2017-11-16] MEDS: HYDROCHLOROTHIAZIDE 12.5 MG CAP PO SCH (09:18)
[2017-11-16 12:00] VITALS: BP 121/59; PULSE 114; RESP 17; TEMP 99.2; O2SAT 97
--- NOTE | 2017-11-16 12:10 | RADRPT ---
EXAM DATE/TIME: 11/16/2017 11:14 [facility] COMPARISON: CT ABDOMEN & PELVIS W CONTRAST, November 07, 2017, 23:04. INDICATIONS : Increased pain without additional trauma since fall one month ago. MEDICAL HISTORY : Pelvic fracture. SURGICAL HISTORY : None. ENCOUNTER: Subsequent ACUITY: 1 month PAIN SCORE: 5/10 LOCATION: Left pelvis FINDINGS: A single frontal view of the pelvis demonstrates a stable oblique fracture through the medial wall of the right acetabulum. No new fracture seen. The bony pelvic ring is intact. Bony mineralization is normal. The soft tissues are intact. CONCLUSION: Stable oblique fracture involving the medial wall the right acetabulum. Alexis Peres MD on November 16, 2017 at 12:07 Board Certified Radiologist. This report was verified electronically.
[2017-11-16 16:00] VITALS: BP 110/59; PULSE 106; RESP 17; TEMP 98.2; O2SAT 95
--- NOTE | 2017-11-16 17:06 | HHI.PR ---
Subjective Remarks C/R Surg POD #3 afebrile, VSS UO good no N/V +BM Objective - Vital Signs Date Time Temp Pulse Resp B/P (MAP) Pulse Ox O2 Delivery O2 Flow Rate FiO2 11/16/17 12:00 99.2 114 17 121/59 (79) 97 11/13/17 22:18 21 11/13/17 18:45 Nasal Cannula 2 Result Diagram: 11/16/1762311/16/17 0624 Objective Remarks PE alert Abd - soft, flat, non-tender, wound dry +flatus/BM path - diverticulitis A/P Assessment and Plan Imp: OOB decr IVF adv diet dc plans Jeffrey Brown MD Nov 16, 2017 17:06
[2017-11-16] MEDS ORDERED: MAGNESIUM SULFATE 1 GM PREMIX 100 ML IV SCH (18:45)
--- NOTE | 2017-11-16 18:50 | HHI.PR ---
Subjective Remarks Patient seen today around 3 PM. She has been walking in [place] a little bit. She denies any chest pain or shortness of breath. Reports pelvic pain continues from recent pelvic fracture. Positive bowel movement. Daughter is concerned patient will not be at home and do everything she needs to do at home as there is no family to take care of her. Objective Vital Signs Date Time Temp Pulse Resp B/P (MAP) Pulse Ox O2 Delivery O2 Flow Rate FiO2 11/16/17 16:00 98.2 106 17 110/59 (76) 95 11/16/17 12:00 99.2 114 17 121/59 (79) 97 11/16/17 08:00 98.9 107 17 135/64 (87) 96 11/16/17 06:00 18 11/16/17 00:00 98.4 88 18 101/58 (72) 100 11/15/17 22:00 16 11/15/17 20:00 99.4 122 18 108/60 (76) 96 I/O 11/15/17 11/15/17 11/15/17 11/16/17 11/16/17 11/16/17 07:00 15:00 23:00 07:00 15:00 23:00 Intake Total 240 ml 1000 ml 960 ml Output Total 1500 ml 1500 ml Balance -1260 ml 1000 ml -540 ml Intake Oral 240 ml 960 ml IV Total 1000 ml Output Urine Total 1500 ml 1500 ml # Voids 2 # Bowel Movements 1 Result Diagram: 11/16/1724 11/16/17 0624 Objective Remarks GENERAL: patient sitting up in chair. Appears comfortable. Awake and alert. SKIN: Warm and dry. HEAD: Normocephalic. EYES: No scleral icterus. No injection or drainage. NECK: Supple, trachea midline. No JVD. CARDIOVASCULAR: Regular rate and rhythm without murmurs, gallops, or rubs. RESPIRATORY: Breath sounds equal bilaterally. No accessory muscle use. GASTROINTESTINAL: Abdomen soft, non-tender, nondistended. postsurgical dressing intact. MUSCULOSKELETAL: No cyanosis,. Trace bilateral lower extremity edema. BACK: Nontender without obvious deformity. No CVA tenderness. A/P Assessment and Plan ========11/16/17. ======= //Hypomagnesemia. 1.4. Replaced. //Hypophosphatemia. Phosphorus 1.6. Replace. Monitor. //Postoperative leukocytosis improving 12.7. Improving. //Recent pelvic fracture, with recent worsening in pain. Continue narcotics as necessary. X-ray with no acute changes. Patient walking. PT following. //Anemia. Hemoglobin down to 8.5 from 8.9 yesterday. Likely postsurgical. No signs of acute bleeding. 67-year-old female with: //Large Bowel Obstruction secondary to diverticulitis. -GI and colorectal sx following. -Continue Zosyn 50ml Q 8 hours IV -Continue pain control. -Cont clear liquid -Zofran PRN -Gastrografin enema shows linear area of colitis in mid, distal aspect of descending colon. -Colorectal surgery following. Planning for colectomy today = 11/14. Postoperative day 1 status post colectomy. Postsurgical management and diet as per surgical service. //Anemia -normal MCV -likely due to rehydration -Hemoccult neg = 11/14. Hemoglobin stable. Continue to monitor for bleeding. //Hypokalemia: Secondary to GI loss - continue to replace K. -Magnesium borderline, give 1 g. Follow-up MP in a.m. = Hypokalemia appears to have resolved. Continue to monitor. //Hypokalemia. = 11/14. Potassium 5.3. Recheck tomorrow. //Hypertension -Continue home HCTZ Discharge Planning PT recommends home health. daughter recommends inpatient rehabilitation. Daughter is an occupational therapist. Will request evaluation for inpatient rehabilitation Will need surgical clearance. Fahad Reddy MD Nov 16, 2017 18:50
[2017-11-16] MEDS ORDERED: POTASSIUM PHOSPHATE INJ 15 MMOL in SODIUM CHLORIDE 0.9% INJ 150 ML IV ONE (21:00)
[2017-11-16 22:19] VITALS: BP 93/60; PULSE 106; RESP 16; TEMP 99; O2SAT 96
[2017-11-16] MEDS: MAGNESIUM SULFAT 1 GM PREMIX 100 ML x2 bags IV SCH (23:07)
[2017-11-16] MEDS: ACETAMINOPHEN/HYDROcodone 325 MG/5 MG TAB PO PRN (23:09)
[2017-11-16] MEDS: MIRTAZAPINE 15 MG TAB PO SCH (23:09)
[2017-11-17] VITALS: BP 87/55; PULSE 91; RESP 16; TEMP 97.8; O2SAT 96
[2017-11-17] MEDS: MAGNESIUM SULFAT 1 GM PREMIX 100 ML x2 bags IV SCH
[2017-11-17 03:38] VITALS: BP 112/66; PULSE 100; RESP 18; TEMP 98; O2SAT 98
[2017-11-17] MEDS: ACETAMINOPHEN/HYDROcodone 325 MG/7.5 MG TAB PO PRN (03:39)
[2017-11-17 08:00] VITALS: BP 101/56; PULSE 98; RESP 17; TEMP 98.1; O2SAT 95
[2017-11-17] MEDS: ACETAMINOPHEN/HYDROcodone 325 MG/5 MG TAB PO PRN ×2 (08:29→15:24)
[2017-11-17] MEDS: PANTOPRAZOLE SOD 40 MG DELAYED RELEASE TAB PO SCH (08:29)
[2017-11-17] MEDS: SODIUM CHLORIDE 0.9% FLUSH 10 ML FLUSH IV FLUSH SCH (08:30)
[2017-11-17] MEDS: HYDROCHLOROTHIAZIDE 12.5 MG CAP PO SCH (08:30)
[2017-11-17] MEDS: PANTOPRAZOLE SODIUM 40 MG VIAL IV PUSH SCH (08:30)
[2017-11-17 12:00] VITALS: BP 84/51; PULSE 104; RESP 17; TEMP 98.1; O2SAT 95
[2017-11-17] MEDS: DEXT 5%-NACL 0.45% 1000 ML INJ 1,000 ML IV SCH (14:24)
[2017-11-17 14:35] VITALS: BP 108/64
[2017-11-17] MEDS ORDERED: MAGN400T3 PO (14:56)
[2017-11-17] MEDS ORDERED: HYDR-3516 PO (14:56)
--- NOTE | 2017-11-17 14:57 | HHI.FF ---
Face to Face Verification Diagnosis: (1) S/P colon resection (2) General weakness Physical Therapy Order: Evaluate and Treat Occupational Therapy Order: Evaluate and Treat Home Health Nursing Order: Nursing assessment with vital signs Home Health Aide Order: To Assist In: Bathing and personal care Hotel Service Supervisor Order: To Provide: Long range planning I have seen patient Maya Wang on 11/17/17. My clinical findings support the need for the requested home health care services because: Deconditioned w/ increased weakness Limited ability to care for self I certify that my clinical findings support that this patient is homebound because: Unsafe to leave home unassisted Fahad Redyd MD Nov 17, 2017 14:57
[2017-11-17] MEDS ORDERED: POTASSIUM PHOSPHATE/SODIUM PHOSPHATE 250 MG TAB PO ONE (15:00)
[2017-11-17] MEDS ORDERED: MAGNESIUM OXIDE 400 MG TAB PO ONE (15:00)
--- NOTE | 2017-11-17 15:05 | HHI.PR ---
Subjective Remarks Patient seen this morning around 10 AM. Says she is feeling all right. Denies any chest pain or shortness of breath. Denies any nausea or vomiting. Positive bowel movement. Objective Vital Signs Date Time Temp Pulse Resp B/P (MAP) Pulse Ox O2 Delivery O2 Flow Rate FiO2 11/17/17 14:35 108/64 (79) 11/17/17 12:00 98.1 104 17 84/51 (62) 95 11/17/17 11:15 11/17/17 08:00 98.1 98 17 101/56 (71) 95 11/17/17 03:38 98.0 100 18 112/66 (81) 98 11/17/17 00:00 97.8 91 16 87/55 (66) 96 11/16/17 22:19 99.0 106 16 93/60 (71) 96 11/16/17 16:00 98.2 106 17 110/59 (76) 95 I/O 11/16/17 11/16/17 11/16/17 11/17/17 11/17/17 11/17/17 07:00 15:00 23:00 07:00 15:00 23:00 Intake Total 720 ml 0 ml Balance 720 ml 0 ml Intake Oral 720 ml IV Total 0 ml # Voids 2 5 # Bowel Movements 1 Result Diagram: 11/16/1762311/16/17623 Objective Remarks GENERAL: patient sitting up in chair. Appears comfortable. Awake and alert. no change SKIN: Warm and dry. HEAD: Normocephalic. EYES: No scleral icterus. No injection or drainage. NECK: Supple, trachea midline. No JVD. CARDIOVASCULAR: Regular rate and rhythm without murmurs, gallops, or rubs. RESPIRATORY: Breath sounds equal bilaterally. No accessory muscle use. GASTROINTESTINAL: Abdomen soft, non-tender, nondistended. postsurgical dressing intact. MUSCULOSKELETAL: No cyanosis,. Trace bilateral lower extremity edema. BACK: Nontender without obvious deformity. No CVA tenderness. A/P Assessment and Plan 11/17. Patient stable for discharge home. Have ordered home health. Appreciate case management assistance. Will need to follow-up within several days for repeat labs with primary care. ========11/16/17. ======= //Hypomagnesemia. 1.4. Replaced. //Hypophosphatemia. Phosphorus 1.6. Replace. Monitor. //Postoperative leukocytosis improving 12.7. Improving. //Recent pelvic fracture, with recent worsening in pain. Continue narcotics as necessary. X-ray with no acute changes. Patient walking. PT following. //Anemia. Hemoglobin down to 8.5 from 8.9 yesterday. Likely postsurgical. No signs of acute bleeding. 67-year-old female with: //Large Bowel Obstruction secondary to diverticulitis. -GI and colorectal sx following. -Continue Zosyn 50ml Q 8 hours IV -Continue pain control. -Cont clear liquid -Zofran PRN -Gastrografin enema shows linear area of colitis in mid, distal aspect of descending colon. -Colorectal surgery following. Planning for colectomy today = 11/14. Postoperative day 1 status post colectomy. Postsurgical management and diet as per surgical service. //Anemia -normal MCV -likely due to rehydration -Hemoccult neg = 11/14. Hemoglobin stable. Continue to monitor for bleeding. //Hypokalemia: Secondary to GI loss - continue to replace K. -Magnesium borderline, give 1 g. Follow-up MP in a.m. = Hypokalemia appears to have resolved. Continue to monitor. //Hypokalemia. = 11/14. Potassium 5.3. Recheck tomorrow. //Hypertension -Continue home HCTZ Discharge Planning PT recommends home health. daughter recommends inpatient rehabilitation. Daughter is an occupational therapist. Will request evaluation for inpatient rehabilitation Will need surgical clearance. Discharge home with home health and home health arranged. Appreciate PT assistance. Fahad Reddy MD Nov 17, 2017 15:05
--- NOTE | 2017-11-17 15:06 | HHI.DS ---
Discharge Summary Admission Date Nov 07, 2017 at 16:30 Discharge Date: Nov 17, 2017 Admitting Diagnosis diverticulitis, colonic dilation (1) Diverticulitis ICD Code: K57.92 - Diverticulitis of intestine, part unspecified, without perforation or abscess without bleeding Status: Acute (2) Colon distention ICD Code: K63.89 - Other specified diseases of intestine Status: Acute Procedures Partial colectomy. Please see report Brief History - From Admission 67-year-old female with a past medical history of hypertension, diverticulosis, GI bleed, lower back degenerative disc disease, depression, and anxiety presented to the ED for evaluation of abdominal pain and distention.The pain is a severe cramping in her left lower quadrant that radiates to her lower abdomen. She had associated bloating with mild nausea/vomiting. She was recently started on Augmentin for diverticulitis by her wool hat hydraulicker and has taken 2 days worth of treatment.She underwent EGD/Colonoscopy (02/14/17)---> EGD normal, normal EGD, Colon polyp, sigmoid stricture, diverticulosis. And again colonoscopy in May 2017 which showed 1 polyps, diverticulosis severe , colitis. CBC/BMP: 11/16/17 0624 11/16/17 0624 Significant Findings Laboratory Tests Test 11/15/17 04:00 11/16/17 06:24 White Blood Count 13.0 TH/MM3 (4.0-11.0) 12.7 TH/MM3 (4.0-11.0) Red Blood Count 2.85 MIL/MM3 (4.00-5.30) 2.77 MIL/MM3 (4.00-5.30) Hemoglobin 8.9 GM/DL (11.6-15.3) 8.5 GM/DL (11.6-15.3) Hematocrit 25.9 % (35.0-46.0) 24.7 % (35.0-46.0) Neutrophils (%) (Auto) 75.6 % (16.0-70.0) 82.5 % (16.0-70.0) Neutrophils # (Auto) 9.8 TH/MM3 (1.8-7.7) 10.5 TH/MM3 (1.8-7.7) Blood Urea Nitrogen 5 MG/DL (7-18) 4 MG/DL (7-18) Albumin 2.0 GM/DL (3.4-5.0) 2.0 GM/DL (3.4-5.0) Calcium Level 8.4 MG/DL (8.5-10.1) 8.4 MG/DL (8.5-10.1) Phosphorus Level 1.5 MG/DL (2.5-4.9) 1.6 MG/DL (2.5-4.9) Random Glucose 108 MG/DL (74-106) Magnesium Level 1.4 MG/DL (1.5-2.5) Imaging Last Impressions Pelvis X-Ray 11/15/17 0000 Signed Impressions: Service Date/Time: Thursday, November 16, 2017 11:14 - CONCLUSION: Stable oblique fracture involving the medial wall the right acetabulum. Alexis Peres MD Chest X-Ray 11/13/17 0000 Signed Impressions: Service Date/Time: Monday, November 13, 2017 16:42 - CONCLUSION: 1. Left subclavian central venous catheter tip in the region of the cavoatrial junction. No evidence of pneumothorax. 2. Mild bilateral lower lung zone opacity likely representing atelectasis. Nito Max MD Enema w/Water Soluble 11/09/17 0000 Signed Impressions: Service Date/Time: Thursday, November 09, 2017 17:19 - CONCLUSION: Linear area of colitis involving the mid and distal aspects of the descending colon. Naveed Gil MD Abdomen/Pelvis CT 11/07/17 0000 Signed Impressions: Service Date/Time: Tuesday, November 07, 2017 23:04 - CONCLUSION: Chronic partial colonic obstruction and appears to be on the basis of moderate diverticulitis superimposed on chronic diverticular disease in the region of the distal descending and proximal sigmoid colon. Underlying mass lesion not entirely excludable and if not done recently, direct visualization with colonoscopy recommended if felt clinically indicated. No small bowel distention. Naveed Scott MD Abdomen X-Ray 11/07/17 0000 Signed Impressions: Service Date/Time: Tuesday, November 07, 2017 13:13 - CONCLUSION: Predominantly colonic dilatation as above nonspecific. Ronal Becerra MD FACR PE at Discharge PE alert Abd - soft, flat, non-tender, wound dry +flatus/BM path - diverticulitis Hospital Course 11/17. Patient stable for discharge home. Have ordered home health. Appreciate case management assistance. Will need to follow-up within several days for repeat labs with primary care. ========11/16/17. ======= //Hypomagnesemia. 1.4. Replaced. //Hypophosphatemia. Phosphorus 1.6. Replace. Monitor. //Postoperative leukocytosis improving 12.7. Improving. //Recent pelvic fracture, with recent worsening in pain. Continue narcotics as necessary. X-ray with no acute changes. Patient walking. PT following. //Anemia. Hemoglobin down to 8.5 from 8.9 yesterday. Likely postsurgical. No signs of acute bleeding. 67-year-old female with: //Large Bowel Obstruction secondary to diverticulitis. -GI and colorectal sx following. -Continue Zosyn 50ml Q 8 hours IV -Continue pain control. -Cont clear liquid -Zofran PRN -Gastrografin enema shows linear area of colitis in mid, distal aspect of descending colon. -Colorectal surgery following. Planning for colectomy today = 11/14. Postoperative day 1 status post colectomy. Postsurgical management and diet as per surgical service. //Anemia -normal MCV -likely due to rehydration -Hemoccult neg = 11/14. Hemoglobin stable. Continue to monitor for bleeding. //Hypokalemia: Secondary to GI loss - continue to replace K. -Magnesium borderline, give 1 g. Follow-up MP in a.m. = Hypokalemia appears to have resolved. Continue to monitor. //Hypokalemia. = 11/14. Potassium 5.3. Recheck tomorrow. //Hypertension -Continue home HCTZ Discharge Planning PT recommends home health. daughter recommends inpatient rehabilitation. Daughter is an occupational therapist. Will request evaluation for inpatient rehabilitation Will need surgical clearance. Discharge home with home health and home health arranged. Appreciate PT assistance. Pt Condition on Discharge: Good Discharge Disposition: Disch w/ Home Health Serv Discharge Time: > 30 minutes Discharge Instructions DIET: Follow Instructions for: As Tolerated, No Restrictions Activities you can perform: Regular-No Restrictions Activities to Avoid: Lifting/Bending Follow up Referrals: Appointment for Follow Up - 1 Week with Jeffrey Brown MD Gastroenterology - 2 Weeks with Steve Vegas MD PCP Follow-up - 3-5 Days New Medications: Magnesium (Magnesium) 400 Mg Tab 400 MG PO DAILY for Nutritional Supplement for 7 Days, #7 TAB 0 Refills Hydrocodone/Acetaminophen (Hydrocodone-Acetamin 5-325 mg) 5 Mg-325 Mg Tablet 1 TAB PO Q4H PRN for PAIN GREATER THAN/EQUAL TO 5, #20 TAB Continued Medications: Hydrochlorothiazide (Hydrochlorothiazide) 25 Mg Tab 20 MG PO DAILY, #30 TAB 0 Refills Mirtazapine (Remeron) 15 Mg Tab 7.5 MG PO HS for Depression Control, #15 TAB 0 Refills Omeprazole (Omeprazole) 40 Mg Cap 40 MG PO DAILY, #30 CAP 0 Refills Zolpidem (Ambien) 10 Mg Tab 10 MG PO HS PRN for INSOMNIA, TAB 0 Refills Discontinued Medications: Polyethylene Glycol 3350 Powder (Miralax Powder) 17 Gm Powd 17 GM PO DAILY for Constipation, #1 CAN 0 Refills Mix and dissolve one measuring cap-ful (17 grams) in water or juice. Fahad Reddy MD Nov 17, 2017 15:06
[2017-11-17] MEDS ORDERED: POTASSIUM CHLORIDE 20 MEQ CONTROLLED RELEASE TAB PO ONE (15:15)
[2017-11-17 15:30] VITALS: BP 118/60
== END 2017-11-17 16:01 | disposition home health service (06) | DRG 330 ==
LOC: NEPC 11:31 → NEDA 16:30 → NEPHCDU 19:17 → N06B 11-08 17:46 → HCPC 11-13 14:57 → N07B 11-15 18:48
PROVIDERS: ADMIT Internal Medicine; ATTEND Internal Medicine
PROC: 0DTG0ZZ Resection of Left Large Intestine, Open Approach (ICD-10-PCS; principal; 2017-11-14)
DX: K57.32 Diverticulitis of large intestine without perforation or abscess without bleeding (principal); E87.1 Hypo-osmolality and hyponatremia; K56.600 Partial intestinal obstruction, unspecified as to cause; K63.89 Other specified diseases of intestine; K52.9 Noninfective gastroenteritis and colitis, unspecified; I10 Essential (primary) hypertension; E87.6 Hypokalemia; D64.9 Anemia, unspecified; E83.39 Other disorders of phosphorus metabolism; E83.42 Hypomagnesemia; E87.5 Hyperkalemia; R63.0 Anorexia; G47.30 Sleep apnea, unspecified; F41.9 Anxiety disorder, unspecified; F32.9 Major depressive disorder, single episode, unspecified; M51.36 Other intervertebral disc degeneration, lumbar region; S32.9XXD Fracture of unspecified parts of lumbosacral spine and pelvis, subsequent encounter for fracture with routine healing; Z86.010 Personal history of colon polyps
CPT/HCPCS: 36415; 71045; 72170; 74018; 74177; 74270; 80048; 80053; 80069; 82272; 83690; 83735; 85025; 85027; 85610; 85652; 85730; 86850; 86900; 86901; 87493; 88309; 93005; 94150; 96361; 96374; 96375; C9113; J0131; J1100; J1170; J1610; J2175; J2250; J2270; J2370; J2405; J2543; J3010; J3410; J3475; J3480; J7030; Q9963; Q9967

== ENCOUNTER 2018-02-03 09:03 | Observation (INO) ==
--- NOTE | 2018-02-03 11:22 | XR ---
EXAM DATE: 02/03/2018 11:15 AM EDT AGE/SEX: 67 years / Female INDICATIONS: Pain on medial side of wrist from fall. CLINICAL DATA: This is the patient's initial encounter. Patient reports that signs and symptoms have been present for 1 day and indicates a pain score of 6/10. MEDICAL/SURGICAL HISTORY: None. None. COMPARISON: No prior exams available for comparison. FINDINGS: There is a comminuted impacted fracture involving the distal radius with extension into the radiocarp al joint. The fracture appears angulated volarly with significant adjacent soft tissue edema. There i s severe degenerative change identified within the radial aspect of the carpus at the first digit car pometacarpal joint and at the trapezium scaphoid articulation. The remainder the osseous structures a ppear intact. CONCLUSION: Comminuted intra-articular and volarly displaced impaction fracture involving the distal radius with significant adjacent edema. The fracture line extends to the radiocarpal joint into the distal radial ulnar joint. The ulna appears intact. Electronically signed by: Jacquie Bautista MD 02/03/2018 11:21 AM EDT
--- NOTE | 2018-02-03 12:11 | XR ---
EXAM DATE: 02/03/2018 11:47 AM EDT AGE/SEX: 67 years / Female INDICATIONS: Pain from fall last nite. Most pain near wrist and radiates to elbow. CLINICAL DATA: This is the patient's initial encounter. Patient reports that signs and symptoms have been present for 1 day and indicates a pain score of 6/10. MEDICAL/SURGICAL HISTORY: None. None. COMPARISON: C, WRIST COMPLETE RIGHT MIN 3V, 02/03/2018. . FINDINGS: Fracture of distal radius is identified. 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 The shaft of the forearm is intact. Bony mineralization is normal. CONCLUSION: Distal radius fracture Electronically signed by: Phani Wells MD 02/03/2018 12:09 PM EDT
--- NOTE | 2018-02-03 12:22 | ED ---
HPI General Chief Complaint: Extremity Injury, Upper Stated Complaint: Fall/Right wrist injury Time Seen by Provider: 02/03/18 11:02 Source: patient and RN notes reviewed Mode of arrival: ambulatory Limitations: no limitations History of Present Illness HPI narrative: 61-year-old female presents to the emergency department for evaluation of right wrist injury that occurred last night when she slipped on a blanket and caught herself with her right hand around 830 last night. Patient denies any head injury LOC. No neck pain or back pain. No chest pain or abdominal pain. No nausea, vomiting, diarrhea. Patient is not on anticoagulants and has no bleeding disorders. She states she last ate last night. Patient reports 10/10 pain, worse with movement, no radiation. Moderate severity. MD complaint: injury to: right Onset (ago): day(s) (1) Other Extremity Injury: Right: wrist Place: home Severity: moderate Severity scale (1-10): 10 Relieving factors: immobilization Exacerbating factors: movement of extremity Context: fall Associated symptoms: denies other symptoms Related Data Home Medications Medication Instructions Recorded Confirmed alprazolam [Xanax] 0.25 mg PO QID 01/22/18 02/03/18 carisoprodol [Soma] 350 mg PO TID 01/22/18 02/03/18 escitalopram oxalate [Lexapro] 20 mg PO DAILY 01/22/18 02/03/18 mirtazapine [Remeron] 15 mg PO DAILY 01/22/18 02/03/18 oxycodone-acetaminophen [Percocet] 1 tab PO TID 01/22/18 02/03/18 ranitidine HCl [Zantac] 300 mg PO HS 01/22/18 02/03/18 sucralfate [Carafate] 3 gm PO TIDAC 01/22/18 02/03/18 zolpidem [Ambien] 10 mg PO HS 01/22/18 02/03/18 hydrochlorothiazide 25 mg PO DAILY 02/03/18 02/03/18 Allergies Allergy/AdvReac Type Severity Reaction Status Date / Time adhesive Allergy Intermediate Rash Unverified 01/22/18 09:49 ciprofloxacin Allergy Intermediate Abdominal Verified 01/22/18 09:49 Pain Review of Systems Except as stated in HPI: all other systems reviewed are negative [facility] Medical History Medical History TIA (transient ischemic attack) (Acute) Anxiety (Acute) Hypertension (Acute) Surgical History Surgical History H/O abdominal surgery (Acute) Hx of appendectomy (Acute) Social History Social History Substance History: No History of Abuse Second Hand Smoke Exposure: No Smoking Status: Former smoker Tobacco Type: Cigarettes How Often Do You Have a Drink Containing Alcohol: Never Recent Out of Country Travel within the Last 8 Weeks: No Immunization History Tetanus Immunization: <5 Years Exam Narrative Exam Narrative: GENERAL: Well-nourished, well-developed female patient, afebrile. SKIN: Focused skin assessment warm/dry. HEAD: Normocephalic. Atraumatic EYES: No scleral icterus. No injection or drainage. NECK: Supple, trachea midline. No JVD or lymphadenopathy. CARDIOVASCULAR: Regular rate and rhythm without murmurs, gallops, or rubs. Right pedal pulse 2+ RESPIRATORY: Breath sounds equal bilaterally. No accessory muscle use. Lung sounds are clear to auscultation GASTROINTESTINAL: Abdomen soft, non-tender, nondistended. MUSCULOSKELETAL: No cyanosis, or edema. Patient has swelling, possible deformity of right wrist with tenderness to palpation. BACK: Nontender without obvious deformity. No CVA tenderness. Course Initial Documented Vital Signs Temperature 98.0 F 02/03/18 09:40 Pulse Rate 73 02/03/18 09:40 Respiratory Rate 16 02/03/18 09:40 Blood Pressure 142/75 H 02/03/18 09:40 Pulse Oximetry 99 02/03/18 09:40 Last Documented Vital Signs Temperature 98.0 F 02/03/18 09:40 Pulse Rate 73 02/03/18 09:40 Respiratory Rate 16 02/03/18 09:40 Blood Pressure 142/75 H 02/03/18 09:40 Pulse Oximetry 99 02/03/18 09:40 Medical Decision Making MDM Narrative Medical decision making narrative: 67-year-old female presents to the emergency department for evaluation of right wrist injury after a fall last night. X-ray of the right wrist and right forearm are ordered and pending. X-ray of the right wrist shows a comminuted intra-articular and volarly displaced impaction fracture involving the distal radius with significant adjacent edema. The fracture line extends to the radiocarpal joint and the distal radial ulnar joint. The ulna appears intact. X-ray of the right forearm shows a distal radius fracture. Orthopedist on-call is paged. I spoke to Dr. Maria, orthopedist on-call, who reviewed the x-rays and would like the patient to be admitted and remain n.p.o. I discussed this with the patient who agrees. Sugar tong splint is placed to the right wrist. IV access obtained. CBC, BMP, PTT, PT/INR, chest x-ray, EKG are ordered and pending. Patient is given morphine 4 mg IV, Zofran 4 mg ODT for pain. [facility] is paged for admission. Dr. Flores accepted admission. Differential Diagnosis Differential Diagnosis: Fracture versus dislocation versus contusion versus sprain Medical Records Medical records reviewed: Yes I reviewed the patient's medical records. Imaging Data Radiologist's impression: Wrist X-Ray 02/03/18 10:39 CONCLUSION: Comminuted intra-articular and volarly displaced impaction fracture involving the distal radius with significant adjacent edema. The fracture line extends to the radiocarpal joint into the distal radial ulnar joint. The ulna appears intact. Forearm X-Ray 02/03/18 11:08 CONCLUSION: Distal radius fracture Chest X-Ray 02/03/18 12:35 CONCLUSION: Negative examination. Discharge Plan Discharge Disposition Patient Disposition: 30 Still Patient Discharge Details Diagnosis: Fracture of wrist Physicians Team ED Provider: Philip Tello ED Midlevel Provider: Tiffany Quintana Attending Provider: Sam Flores Status ED Status: Admitted Observation Patient
[2018-02-03] MEDS ORDERED: Morphine Inj 4 MG/ML Vial IV.PUSH ONE (12:36)
--- NOTE | 2018-02-03 12:51 | XR ---
EXAM DATE: 02/03/2018 12:49 PM EDT AGE/SEX: 67 years / Female INDICATIONS: Preoperative for right wrist surgery. Evaluate for pneumothorax, pneumonia, or communic able disease. CLINICAL DATA: This is the patient's initial encounter. Patient reports that signs and symptoms have been present for 1 day and indicates a pain score of 0/10. MEDICAL/SURGICAL HISTORY: None. None. COMPARISON: [facility], CHEST 1V SINGLE AP, 01/22/2018. . FINDINGS: A single AP view of the chest demonstrates the lungs to be symmetrically aerated without evidence of mass, infiltrate or effusion. The cardiomediastinal contours are unremarkable. Osseous structures d emonstrate moderate to severe thoracolumbar scoliosis. CONCLUSION: Negative examination. Electronically signed by: Jacquie Bautista MD 02/03/2018 12:50 PM EDT
[2018-02-03] MEDS ORDERED: Bisacodyl 10 MG Supp RECTAL PRN (13:58)
[2018-02-03] MEDS ORDERED: ALPRAZolam 0.25 MG Tablet PO PRN (14:05)
[2018-02-03 14:38] LABS: Baso # (Auto) 0.1 th/mm3 (0.0-0.2); Baso % (Auto) 0.7 % (0.0-2.0); Eos # (Auto) 0.2 th/mm3 (0.0-0.4); Eos % (Auto) 1.9 % (0.0-4.0); Hematocrit 32.2 % (35.0-46.0); Lymph % (Auto) 23.1 % (9.0-44.0); Mean Corpuscular HGB Conc 34.3 % (32.0-36.0); Mean Corpuscular Hemoglobin 31.9 pg (27.0-34.0); Mean Corpuscular Volume 93.1 fL (80.0-100.0); Mean Platelet Volume 7.8 fL (7.0-11.0); Mono # (Auto) 0.5 th/mm3 (0.0-0.9); Mono % (Auto) 5.9 % (0.0-8.0); Neut # (Auto) 5.9 th/mm3 (1.8-7.7); Neut % (Auto) 68.4 % (16.0-70.0); Platelet Count 308 th/mm3 (150-450); Red Blood Count 3.46 mil/mm3 (4.00-5.30); Red Cell Distribution Width 16.6 % (11.6-17.2); White Blood Count 8.7 th/mm3 (4.0-11.0)
[2018-02-03] MEDS ORDERED: Post-op Orders (for Pharmacy) OTHER STA (14:39)
[2018-02-03] MEDS ORDERED: Promethazine 25 MG Supp RECTAL PRN (14:39)
[2018-02-03] MEDS ORDERED: Morphine Inj 4 MG/ML Vial IV.PUSH PRN (14:39)
[2018-02-03] MEDS ORDERED: ceFAZolin 2 GM Premix Inj 2 GM/50 ML PIGGYBACK IV.SIG ONE (14:44)
[2018-02-03 14:51] LABS: Carbon Dioxide 26.6 meq/L (21.0-32.0); Potassium 4.1 meq/L (3.5-5.1)
[2018-02-03] MEDS ORDERED: Phenylephrine/NS 1000 MCG/10ML Syringe IV.PUSH ONE (14:58)
[2018-02-03] MEDS ORDERED: Glycopyrrolate Inj 1 MG/5 ML Syringe IV.PUSH ONE (14:58)
[2018-02-03] MEDS ORDERED: Lidocaine PF 1% Inj 5 ML Syringe INFILTRATN ONE (14:58)
--- NOTE | 2018-02-03 15:37 | MB ---
cc: Fahad Maria MD DATE: 02/03/2018 REASON FOR CONSULTATION: Right distal radius fracture. HISTORY OF PRESENT ILLNESS: A 67-year-old female who presented to [facility] Emergency Room with chief complaint of severe right wrist pain after a slip and fall injury. She caught herself on the right wrist. She denies loss of consciousness. Denies hitting her head. Her pain is severe, constant, throbbing, worsening symptoms with any movement and has slight relief with ice and elevation. She was seen at [facility] Emergency Room. Orthopedic surgery was consulted. She states her pain is 10/10. Currently, no numbness or tingling. PAST MEDICAL HISTORY: TIA, anxiety, hypertension. She also has chronic pain syndrome and sees Dr. Morales for pain management. PAST SURGICAL HISTORY: Abdominal surgery. SOCIAL HISTORY: She is a former smoker, does not currently smoke. She does not drink alcohol. She states she does not use illicit drugs. FAMILY HISTORY: Reviewed, noncontributory. REVIEW OF SYSTEMS: Negative for 10-systems other than HPI. PHYSICAL EXAMINATION: VITAL SIGNS: Temperature 98, pulse 73, respirations 18, blood pressure 142/75. She is saturating 99% on room air. HEENT: Normocephalic, atraumatic. Pupils round. Extraocular muscles intact. NECK: Supple. LUNGS: Clear. HEART: Regular rate and rhythm. ABDOMEN: Soft, nontender. EXTREMITIES: Right upper extremity has swelling, ecchymosis, deformity of wrist. She can flex her digits with pain, limitation upon clinical exam. Brisk capillary refill. GENERAL: She is a well-nourished female, appears her stated age. SKIN: Warm, dry and intact. IMAGING: X-ray of the right wrist reveal a comminuted intra-articular displaced distal radius fracture with soft tissue swelling. IMPRESSION: A 67-year-old female, status post fall, right displaced comminuted distal radius fracture. PLAN: Discussed diagnosis and treatment options. We spoke about the option of nonoperative treatment versus surgery. Surgery would consist of open reduction and internal fixation. The risks of surgery discussed, which include, but not limited to anesthesia, bleeding, infection, damage to nerves and blood vessels, pain, stiffness, failure of hardware, blood clots. The patient had several questions which have been answered. She is in favor of proceeding with surgery. She does wish to have a surgical repair of her right distal radius fracture. Written consent has been obtained. The surgical site has been marked. MD LAURYN Mata/JULIA , 02:38 PM , 03:35 PM
[2018-02-03] MEDS ORDERED: *Meperidine Inj 25 MG/ML Vial PERIprocedural Use ONLY ONE (15:57)
[2018-02-03] MEDS ORDERED: fentaNYL Citrate Inj 100 MCG/2 ML Ampul ONE ×2 (16:01)
[2018-02-03] MEDS ORDERED: *morphine SULFATE 4 MG/ML PERIprocedure ONLY ONE ×2 (16:08→16:17)
--- NOTE | 2018-02-03 16:13 | MP ---
cc: Fahad Maria MD DATE OF OPERATION: PREOPERATIVE DIAGNOSIS: Right distal radius fracture. POSTOPERATIVE DIAGNOSIS: Right distal radius fracture. PROCEDURE PERFORMED: Open reduction, internal fixation of right distal radius fracture, greater than 3 intraarticular fragments. SURGEON: Fahad Maria MD HABILITATION TRAINING SPECIALIST: MARY ANN Evangelista ANESTHESIA: General. ESTIMATED BLOOD LOSS: 50 mL TOURNIQUET TIME: Zero minutes. COMPLICATIONS: None. IMPLANTS USED: Synthes. JUSTIFICATION: This patient is a 67-year-old female who fell sustaining a displaced comminuted right intraarticular distal radius fracture. She presented to [facility] Emergency Room. Orthopedic surgery was consulted. The patient was counseled as to the risks, benefits and alternatives to the above-named proposed surgical procedure. She did wish to proceed with surgery. PROCEDURE IN DETAIL: Written consent was obtained. The patient was identified by name, taken to the operating room, placed supine on the operating table. General anesthesia was administered as well as 2 grams of IV Ancef. The right upper extremity was prepped and draped using isopropyl alcohol, Hibiclens solution and ChloraPrep solution. After a timeout was performed, a longitudinal incision was made over the volar aspect of the right wrist. The flexor carpi radialis tendon sheath was incised and the pronator musculature elevated off the radial aspect of the distal radius An open reduction was performed and the joint surface was reconstructed with multiple K-wires. The multiple intraarticular fragments were reduced using assistance of fluoroscopic guidance. Subsequently, a Synthes stainless steel volar distal radius locking plate was applied to the volar aspect of the distal radius. A combination of both locking and nonlocking screws were used for fixation. Fluoroscopic imaging confirmed hardware placement, fracture reduction. The K-wires were removed. The surgical wound was thoroughly irrigated with sterile saline solution. The pronator layer, as well as subcutaneous layer was closed with 3-0 Vicryl suture. Skin incision closed with 3-0 nylon. Sterile dressing was applied. The patient was placed in a well-padded splint. She tolerated the procedure well with no intraoperative complications noted. Johan Cruz, physician social research assistant, certified was present during the entire procedure to include patient positioning and the procedure itself. The medical necessity of physician social research assistant was indicated in this case due to the complexity of the procedure. He assisted with appropriate manipulation of the arm, retraction of muscle, tendon, bone, neurovascular structures. He assisted with both achieving and maintaining fracture reduction, along with implantation of the internal fixation device. MD LAURYN Mata/TL , 03:35 PM , 04:11 PM
[2018-02-03] MEDS ORDERED: *morphine SULFATE 10 MG/ML PERIprocedure ONLY ONE (16:30)
--- NOTE | 2018-02-03 16:36 | XR ---
EXAM DATE: 02/03/2018 3:58 PM EDT AGE/SEX: 67 years / Female INDICATIONS: Post hardware placement right wrist CLINICAL DATA: This is the patient's subsequent encounter. Patient reports that signs and symptoms h ave been present for 1 day and indicates a pain score of Nonresponsive. MEDICAL/SURGICAL HISTORY: Non-responsive. Non-responsive. COMPARISON: No prior exams available for comparison. FINDINGS: There are postsurgical changes with operative reduction and internal fixation of the previously seen fracture. The alignment is anatomic. CONCLUSION: Postsurgical changes as above. Electronically signed by: Phani Wells MD 02/03/2018 4:34 PM EDT
[2018-02-03] MEDS ORDERED: HYDROmorphone PF Inj 2 MG/ML Vial ONE (16:52)
--- NOTE | 2018-02-03 17:57 | P.HPIM ---
History of Present Illness Primary Care Physician: Donny Monet Chief Complaint: Pain History of Present Illness: The patient is a 67-year-old female with a past medical history of diverticulosis, hypertension and pelvic fracture who is presenting to the hospital following a mechanical fall. The patient says that she tripped over her dog bed today and fell on the ground hard. She said she heard a loud crack coming from her right arm. She had significant pain following the fall. She decided to drive herself to the hospital. She says she received 4 mg of morphine which barely helped with her pain. She went for surgery and was evaluated in the PACU. She says that her pain is currently at a 5 out of 10 in severity. She denies any difficulty breathing. The patient does endorse sustaining a pelvic fracture a few months ago. She says she came to the emergency department recently for an episode of syncope. She says she has a neurology appointment at the end of February. - Diagnosis (1) Fracture of wrist Inpatient Certification: I certify that the inpatient services were ordered in accordance with Medicare regulations governing the order. This includes certification that hospital inpatient services are reasonable and necessary and in the case of services not specified as inpatient-only under 42 CFR 419.22(n), that they are appropriately provided as inpatient services in accordance to with the 2-midnight benchmark under 43 CFR 412.3(e) Estimated Total Length of Stay (Days): 3 Plans for Post Hospital Care: Not yet determined Review of Systems All other systems reviewed negative except as stated in HPI [facility] - History History Provided By: Patient - Medical History Medical History: Medical History (Last Updated 02/03/18 @ 18:01 by Sam Flores DO) Diverticulitis Pelvic fracture TIA (transient ischemic attack) Anxiety Hypertension - Surgical History Surgical History: Surgical History (Last Updated 01/22/18 @ 09:56 by Karime Contreras) H/O abdominal surgery Hx of appendectomy - Family History Family History: Family History (Last Updated 02/03/18 @ 18:01 by Sam Flores DO) Other Epilepsy - Tobacco History Second Hand Smoke Exposure: No Tobacco Use In Past 30 Days: No Smoking Status: Former smoker Tobacco Type: Cigarettes - Alcohol History How Often Do You Have a Drink Containing Alcohol: Monthly or less - Substance Use History Substance History: No History of Abuse - Travel History Recent Travel Out of the Country Within the Last 8 Weeks: No - Immunization History Tetanus Immunization: <5 Years Medications and Allergies Active Medications: Active Medications Al Hydroxide/Mg Hydroxide (Milk Of Magnesia Liq) 30 ml PO Q12H PRN PRN Reason: Mild Constipation Alprazolam (Xanax) 0.25 mg PO QID PRN PRN Reason: ANXIETY Bisacodyl (Dulcolax Supp) 10 mg RECTAL DAILY PRN PRN Reason: SEVERE CONSITIPATION Carisoprodol (Soma) 350 mg PO TID [facility] Diphenhydramine HCl (Benadryl) 25 mg PO Q6H PRN PRN Reason: ITCHING Escitalopram Oxalate (Lexapro) 20 mg PO DAILY [facility] Famotidine (Pepcid) 20 mg PO HS [facility] Folic Acid (Folic Acid) 1 mg PO DAILY [facility] Lactated Ringer's (Lr 1000 Ml Inj) 1,000 mls @ 100 mls/hr IV.CONT .Q10H [facility] Last Admin: 02/03/18 17:44 Dose: Not Given Lactulose (Lactulose Liq) 30 ml PO DAILY PRN PRN Reason: SEVERE CONSITIPATION Mirtazapine (Remeron) 15 mg PO DAILY [facility] Miscellaneous Information (Mis Nursing Information) 1 each OTHER UNSCH PRN PRN Reason: SEE LABEL COMMENTS Stop: 02/04/18 16:41 Morphine Sulfate (Morphine Inj) 4 mg IV.PUSH Q3H PRN PRN Reason: BREAKTHROUGH PAIN Multivitamins/Minerals (Theragran-M) 1 tab PO DAILY [facility] Ondansetron HCl (Zofran Odt) 4 mg PO Q6H PRN PRN Reason: NAUSEA OR VOMITING Ondansetron HCl (Zofran Inj) 4 mg IV.PUSH Q6H PRN PRN Reason: NAUSEA OR VOMITING Oxycodone HCl (Roxicodone) 5 mg PO Q4H PRN PRN Reason: PAIN SCALE 1 TO 10 Promethazine HCl (Phenergan) 25 mg PO Q6H PRN PRN Reason: NAUSEA OR VOMITING Promethazine HCl (Phenergan Supp) 25 mg RECTAL Q6H PRN PRN Reason: NAUSEA OR VOMITING Senna/Docusate Sodium (Ruby-Colace) 1 tab PO BID [facility] Senna/Docusate Sodium (Ruby-Colace) 1 tab PO BID [facility] Sennosides (Senokot) 17.2 mg PO Q12H PRN PRN Reason: Moderate Constipation Sodium Chloride (Ns Flush) 2 ml IV.FLUSH PRN PRN PRN Reason: FLUSH AFTER USING IV ACCESS Sodium Chloride (Ns Flush) 2 ml IV.FLUSH BID [facility] Thiamine HCl (Vitamin B1) 100 mg PO DAILY [facility] Allergies Allergy/AdvReac Type Severity Reaction Status Date / Time adhesive Allergy Intermediate Rash Unverified 01/22/18 09:49 ciprofloxacin Allergy Intermediate Abdominal Verified 01/22/18 09:49 Pain Home Medications Medication Instructions Recorded Confirmed Type alprazolam [Xanax] 0.25 mg PO QID 01/22/18 02/03/18 History carisoprodol [Soma] 350 mg PO TID 01/22/18 02/03/18 History escitalopram oxalate [Lexapro] 20 mg PO DAILY 01/22/18 02/03/18 History mirtazapine [Remeron] 15 mg PO DAILY 01/22/18 02/03/18 History oxycodone-acetaminophen [Percocet] 1 tab PO TID 01/22/18 02/03/18 History ranitidine HCl [Zantac] 300 mg PO HS 01/22/18 02/03/18 History sucralfate [Carafate] 3 gm PO TIDAC 01/22/18 02/03/18 History zolpidem [Ambien] 10 mg PO HS 01/22/18 02/03/18 History hydrochlorothiazide 25 mg PO DAILY 02/03/18 02/03/18 History Exam Vital signs: Vital Signs 02/03/18 09:40 02/03/18 13:05 02/03/18 15:54 Temperature 98.0 F 97.9 F Pulse Rate 73 71 88 Respiratory Rate 16 17 23 Blood Pressure 142/75 H 134/56 L 151/75 H Pulse Oximetry 99 100 100 02/03/18 16:00 02/03/18 16:15 02/03/18 16:30 Temperature Pulse Rate 86 80 77 Respiratory Rate 23 13 12 Blood Pressure 139/65 130/62 139/66 Pulse Oximetry 100 100 100 02/03/18 16:45 02/03/18 17:00 02/03/18 17:15 Temperature 97.8 F Pulse Rate 88 83 83 Respiratory Rate 17 17 15 Blood Pressure 140/69 133/58 L 161/67 H Pulse Oximetry 100 96 96 02/03/18 17:30 Temperature Pulse Rate 65 Respiratory Rate 15 Blood Pressure 128/63 Pulse Oximetry 96 Intake & Output 02/02/18 02/03/18 02/03/18 18:59 06:59 18:59 Intake Total 750 / 750 Output Total Balance 725 / 725 Weight 52 kg Intake: Anesthesia Amount 750 / 750 Output: Estimated Blood Loss Narrative: GENERAL: Well-nourished, well-developed. SKIN: Focused skin assessment warm/dry. HEAD: Normocephalic. Atraumatic EYES: No scleral icterus. No injection or drainage. NECK: Supple, trachea midline. No JVD or lymphadenopathy. CARDIOVASCULAR: Regular rate and rhythm without murmurs, gallops, or rubs. RESPIRATORY: Breath sounds equal bilaterally. No accessory muscle use. Lung sounds are clear to auscultation GASTROINTESTINAL: Abdomen soft, non-tender, nondistended. MUSCULOSKELETAL: No cyanosis, or edema. Right wrist is bandaged. Sensation in intact. NEURO: No gross deficits. Results - Labs CBC & Chem 7: 02/03/18 13:15 02/03/18 13:15 Labs: Short CBC 02/03/18 Range/Units 13:15 WBC 8.7 (4.0-11.0) th/mm3 Hgb 11.0 L (11.6-15.3) gm/dL Hct 32.2 L (35.0-46.0) % Plt Count 308 (150-450) th/mm3 BMP 02/03/18 13:15 Sodium 142 Potassium 4.1 Chloride 109 H Carbon Dioxide 26.6 BUN 21 H Creatinine 0.79 Calcium 9.0 - Imaging Impressions Wrist X-Ray 02/03/18 00:00 CONCLUSION: Postsurgical changes as above. Wrist X-Ray 02/03/18 10:39 CONCLUSION: Comminuted intra-articular and volarly displaced impaction fracture involving the distal radius with significant adjacent edema. The fracture line extends to the radiocarpal joint into the distal radial ulnar joint. The ulna appears intact. Forearm X-Ray 02/03/18 11:08 CONCLUSION: Distal radius fracture Chest X-Ray 02/03/18 12:35 CONCLUSION: Negative examination. Caprini VTE Risk Assessment Caprini VTE Risk Assessment: Moderate/High Risk (score >= 2) Caprini Risk Assessment Model: Point Value = 1 Point Value = 2 Point Value = 3 Point Value = 5 Age 41-60 Minor surgery BMI > 25 kg/m2 Swollen legs Varicose veins or History of unexplained or recurrent spontaneous Oral contraceptives or hormone replacement Sepsis (< 1 month) Serious lung disease, including pneumonia (< 1 month) Abnormal pulmonary function Acute myocardial infarction Congestive heart failure (< 1 month) History of inflammatory bowel disease Medical patient at bed rest Age 61-74 Arthroscopic surgery Major open surgery (> 45 min) Laparoscopic surgery (> 45 min) Malignancy Confined to bed (> 72 hours) Immobilizing plaster cast Central venous access Age >= 75 History of VTE Family history of VTE Factor V Leiden Prothrombin [id number] Lupus anticoagulant Anticardiolipin antibodies Elevated serum homocysteine Heparin-induced thrombocytopenia Other congenital or acquired thrombophilia Stroke (< 1 month) Elective arthroplasty Hip, pelvis, or leg fracture Acute spinal cord injury (< 1 month) Prophylaxis Regimen: Total Risk Factor Score Risk Level Prophylaxis Regimen 0-1 Low Early ambulation 2 Moderate Order ONE of the following: *Sequential Compression Device (SCD) *Heparin 5000 units SQ BID 3-4 Higher Order ONE of the following medications: *Heparin 5000 units SQ TID *Enoxaparin/Lovenox 40 mg SQ daily (WT < 150 kg, CrCl > 30 mL/min) *Enoxaparin/Lovenox 30 mg SQ daily (WT < 150 kg, CrCl > 10-29 mL/min) *Enoxaparin/Lovenox 30 mg SQ BID (WT < 150 kg, CrCl > 30 mL/min) AND/OR *Sequential Compression Device (SCD) 5 or more Highest Order ONE of the following medications: *Heparin 5000 units SQ TID (Preferred with Epidurals) *Enoxaparin/Lovenox 40 mg SQ daily (WT < 150 kg, CrCl > 30 mL/min) *Enoxaparin/Lovenox 30 mg SQ daily (WT < 150 kg, CrCl > 10-29 mL/min) *Enoxaparin/Lovenox 30 mg SQ BID (WT < 150 kg, CrCl > 30 mL/min) AND *Sequential Compression Device (SCD) Assessment and Plan - Assessment (1) Fracture of wrist Code(s): S62.109A - Fracture of unspecified carpal bone, unspecified wrist, initial encounter for closed fracture Status: Acute - Plan Right radial fracture The pt fell at home and imaging revealed: Comminuted intra-articular and volarly displaced impaction fracture involving the distal radius with significant adjacent edema; The fracture line extends to the radiocarpal joint into the distal radial ulnar joint. Orthopedic surgery consult appreciated. S/p repair 02/03. - pain control with a bowel regimen. - PT/OT. - weightbearing, wound care and anticoagulation per surgery. - incentive spirometry. Syncope Recently came to the ED following a spell. - outpt follow-up with neurology as scheduled. Anemia Chronic. - follow CBC. Diverticulitis S/p recent surgery. - outpt follow-up. PPx: Per surgery Discussed Condition With: Tiffany Quintana, pt, nurse (1) Fracture of wrist Qualifiers: Encounter type: initial encounter Fracture type: closed Laterality: right Qualified Code(s): S62.101A - Fracture of unspecified carpal bone, right wrist, initial encounter for closed fracture
[2018-02-03] MEDS: Carisoprodol 350 MG Tablet PO SCH (18:11)
[2018-02-03] MEDS ORDERED: Senna/Docusate Sodium 8.6/50 MG Tablet PO SCH ×2 (21:00)
[2018-02-03] MEDS ORDERED: Famotidine 20 MG Tablet PO SCH (21:00)
[2018-02-03] MEDS: Sucralfate Liq 1 GM/10 ML UDC PO SCH (22:29)
[2018-02-04] MEDS: Carisoprodol 350 MG Tablet PO SCH (08:01)
[2018-02-04] MEDS: Sucralfate Liq 1 GM/10 ML UDC PO SCH (08:02)
[2018-02-04] MEDS ORDERED: Folic Acid 1 MG Tablet PO SCH (09:00)
[2018-02-04] MEDS ORDERED: Multivitamin/Minerals Therapeutic Tablet PO SCH (09:00)
[2018-02-04] MEDS ORDERED: Mirtazapine 15 MG Tablet PO SCH (09:00)
[2018-02-04 09:57] LABS: Hemoglobin 9.1 gm/dL (11.6-15.3); Mean Corpuscular HGB Conc 33.6 % (32.0-36.0); Mean Corpuscular Hemoglobin 31.8 pg (27.0-34.0); Mean Corpuscular Volume 94.4 fL (80.0-100.0); Mean Platelet Volume 7.7 fL (7.0-11.0); Platelet Count 250 th/mm3 (150-450); Red Blood Count 2.86 mil/mm3 (4.00-5.30); Red Cell Distribution Width 17.1 % (11.6-17.2); White Blood Count 6.2 th/mm3 (4.0-11.0)
[2018-02-04 10:18] LABS: Calcium 8.7 mg/dL (8.5-10.1); Carbon Dioxide 23.5 meq/L (21.0-32.0); Potassium 4.2 meq/L (3.5-5.1)
--- NOTE | 2018-02-04 14:25 | P.PN ---
Subjective Interval history: Follow up for right radial fracture. The patient reports feeling well today. Right wrist pain well controlled. She wants to go home. She has been able to ambulate. She has a 4-wheel walker at home. She has no other medical complaints at this time. Physical Exam Vital signs: Vital Signs 02/03/18 15:54 02/03/18 16:00 02/03/18 16:15 Temperature 97.9 F Pulse Rate 88 86 80 Respiratory Rate 23 23 13 Blood Pressure 151/75 H 139/65 130/62 Pulse Oximetry 100 100 100 02/03/18 16:30 02/03/18 16:45 02/03/18 17:00 Temperature Pulse Rate 77 88 83 Respiratory Rate 12 17 17 Blood Pressure 139/66 140/69 133/58 L Pulse Oximetry 100 100 96 02/03/18 17:15 02/03/18 17:30 02/03/18 18:27 Temperature 97.8 F 98.0 F Pulse Rate 83 65 74 Respiratory Rate 15 15 18 Blood Pressure 161/67 H 128/63 129/73 Pulse Oximetry 96 96 96 02/03/18 19:55 02/04/18 00:00 02/04/18 04:00 Temperature 98.4 F 97.8 F 97.9 F Pulse Rate 80 65 55 L Respiratory Rate 18 18 18 Blood Pressure 138/66 98/48 L 99/56 L Pulse Oximetry 96 93 L 9 L 02/04/18 07:49 02/04/18 11:43 02/04/18 12:04 Temperature 98.1 F 98.2 F Pulse Rate 66 82 Respiratory Rate 18 18 18 Blood Pressure 102/65 97/55 L Pulse Oximetry 98 94 L Intake & Output 02/03/18 02/04/18 02/04/18 18:59 06:59 18:59 Intake Total 1040 / 1040 Output Total 25 / 25 Balance 1015 / 1015 Weight 52 kg Intake: IV 50 / 50 Ancef 2 GM Premix Inj 2 gm In 50 / 50 50 ml @ 0 mls/hr IV.SIG .STK- MED ONE Rx#:[id number] Oral 240 / 240 Anesthesia Amount 750 / 750 Output: Estimated Blood Loss 25 / 25 Narrative: GENERAL: Well-nourished, well-developed female patient in [facility]. SKIN: Warm and dry. No rash. HEENT: Normocephalic. Atraumatic. Pupils equal and round. Mucous membranes pink and moist. CARDIOVASCULAR: Regular rate and rhythm. No murmur appreciated. RESPIRATORY: No accessory muscle use. Clear to auscultation. Breath sounds equal bilaterally. GASTROINTESTINAL: Abdomen soft, non-tender, nondistended. Normoactive bowel sounds x4. MUSCULOSKELETAL: No obvious deformities. Extremities without clubbing, cyanosis , or edema. Right wrist in splint, distal finger sensation intact with brisk capillary refill. NEUROLOGICAL: Awake and alert. No obvious cranial nerve deficits. Motor grossly within normal limits. Moving all extremities spontaneously. Normal speech. PSYCHIATRIC: Appropriate mood and affect; insight and judgment normal. Results - Labs CBC & Chem 7: 02/04/18 08:28 02/04/18 08:28 Laboratory Results - last 24 hr 02/03/18 02/03/18 02/03/18 13:15 13:15 13:15 WBC 8.7 RBC 3.46 L Hgb 11.0 L Hct 32.2 L MCV 93.1 MCH 31.9 MCHC 34.3 RDW 16.6 Plt Count 308 MPV 7.8 Neut % (Auto) 68.4 Lymph % (Auto) 23.1 [place] % (Auto) 5.9 Eos % (Auto) 1.9 Baso % (Auto) 0.7 Neut # (Auto) 5.9 Lymph # (Auto) 2.0 [place] # (Auto) 0.5 Eos # (Auto) 0.2 Baso # (Auto) 0.1 WBC Differential . Differential Comment Auto diff final PT 10.0 INR 1.0 APTT 24.0 L Sodium 142 Potassium 4.1 Chloride 109 H Carbon Dioxide 26.6 Anion Gap 6 BUN 21 H Creatinine 0.79 Estimated GFR 73 L Random Glucose 76 Calcium 9.0 02/04/18 02/04/18 08:28 08:28 WBC 6.2 RBC 2.86 L Hgb 9.1 L Hct 27.0 L MCV 94.4 MCH 31.8 MCHC 33.6 RDW 17.1 Plt Count 250 MPV 7.7 Neut % (Auto) Lymph % (Auto) [place] % (Auto) Eos % (Auto) Baso % (Auto) Neut # (Auto) Lymph # (Auto) [place] # (Auto) Eos # (Auto) Baso # (Auto) WBC Differential Differential Comment PT INR APTT Sodium 142 Potassium 4.2 Chloride 108 H Carbon Dioxide 23.5 Anion Gap 11 BUN 18 Creatinine 0.92 Estimated GFR 61 L Random Glucose 71 L Calcium 8.7 - Imaging Impressions Wrist X-Ray 02/03/18 00:00 CONCLUSION: Postsurgical changes as above. Assessment and Plan - Assessment (1) Fracture of wrist Code(s): S62.109A - Fracture of unspecified carpal bone, unspecified wrist, initial encounter for closed fracture Status: Acute - Plan 67-year-old female with a past medical history of diverticulosis, hypertension and pelvic fracture who is presenting to the hospital following a mechanical fall. Right radial fracture: S/p mechanical fall over a dog bed at home, no syncopal events with this episode. -Imaging reviewed, shows comminuted intra-articular and volarly displaced impaction fracture involving the distal radius with significant adjacent edema; The fracture line extends to the radiocarpal joint into the distal radial ulnar joint. -Orthopedic surgery consult appreciated -S/p ORIF by Dr. Maria 02/03. -pain control with a bowel regimen. -PT/OT, cleared for discharge home -nonweightbearing to right wrist -incentive spirometry. -patient's pain is controlled and she wants to go home, discussed with Fahad Rivas PA-C with Dr. Maria, ok to discharge home, outpatient f/up in 1- 2 weeks Near Syncope: Recently came to the ED following a spell that occurred 1 week ago. - outpt follow-up with neurology as scheduled. Anemia: Chronic. - follow CBC. - no signs of bleeding - stable for discharge Diverticulitis: S/p recent surgery. - outpt follow-up. Discharge Planning: Discharge patient to home Condition on discharge: Stable Heart Healthy diet as tolerated Ad Amparo activity, NWB RUE Rx written: no new meds Follow-up with primary care physician and orthopedics Dr. Maria in 1-2 weeks (1) Fracture of wrist Qualifiers: Encounter type: initial encounter Fracture type: closed Laterality: right Qualified Code(s): S62.101A - Fracture of unspecified carpal bone, right wrist, initial encounter for closed fracture
== END 2018-02-04 14:59 | disposition home or self-care (01) ==
LOC: NEPHCDU 09:03 → NEDH 09:03 → NEPD 09:03 → NEDH 14:18 → NEPHCDU 17:54
PROVIDERS: ADMIT Internal Medicine; ATTEND Internal Medicine

== ENCOUNTER 2018-06-04 06:27 | Inpatient (IN) ==
[2018-06-04] MEDS ORDERED: Naloxone Inj 0.4 MG/ML Vial ONE (06:31)
[2018-06-04] MEDS ORDERED: Naloxone Inj 0.4 MG/ML Vial IV.PUSH ONE (06:39)
[2018-06-04 07:12] LABS: Baso % (Auto) 0.3 % (0.0-2.0); Eos % (Auto) 0.1 % (0.0-4.0); Hematocrit 34.6 % (35.0-46.0); Hemoglobin 11.2 gm/dL (11.6-15.3); Lymph # (Auto) 0.7 th/mm3 (1.0-4.8); Lymph % (Auto) 5.9 % (9.0-44.0); Mean Corpuscular HGB Conc 32.3 % (32.0-36.0); Mean Corpuscular Hemoglobin 29.7 pg (27.0-34.0); Mean Corpuscular Volume 92.1 fL (80.0-100.0); Mean Platelet Volume 8.5 fL (7.0-11.0); Mono # (Auto) 0.6 th/mm3 (0.0-0.9); Mono % (Auto) 5.1 % (0.0-8.0); Neut % (Auto) 88.6 % (16.0-70.0); Platelet Count 276 th/mm3 (150-450); Red Blood Count 3.76 mil/mm3 (4.00-5.30); Red Cell Distribution Width 16.4 % (11.6-17.2); White Blood Count 12.4 th/mm3 (4.0-11.0)
--- NOTE | 2018-06-04 07:12 | ED ---
HPI General Chief complaint: Fall Stated complaint: fall Time Seen by Provider: 06/04/18 06:34 Source: EMS Mode of arrival: EMS Limitations: altered mental status History of Present Illness HPI narrative: The patient is a 68 year old female who presents to the [facility] emergency department with a history of being found on the bathroom floor by her daughter at 5:30 AM this morning. The patient had altered mentation and was noted to have an area of periorbital ecchymosis around the right eye. Ambulance services reports that the patient also has an area of hematoma on the posterior scalp. The patient was sitting up in her chair of her walker upon ambulance services arrival. The patient was drowsy although answering questions. On arrival, the patient has snoring respiratory effort. The patient is difficult to arouse. No history is able to be a provided by the patient. The patient arrives with a cervical collar in place. No other history is able to be obtained from the patient. The patient's electronic medical record was reviewed for additional history. Related Data Home Medications Medication Instructions Recorded Confirmed alprazolam [Xanax] 0.25 mg PO QID 01/22/18 06/04/18 carisoprodol [Soma] 350 mg PO TID 01/22/18 06/04/18 escitalopram oxalate [Lexapro] 20 mg PO DAILY 01/22/18 06/04/18 mirtazapine [Remeron] 15 mg PO DAILY 01/22/18 06/04/18 oxycodone-acetaminophen [Percocet] 1 tab PO TID 01/22/18 06/04/18 ranitidine HCl [Zantac] 300 mg PO HS 01/22/18 06/04/18 sucralfate [Carafate] 1 gm PO ACHS 01/22/18 06/04/18 zolpidem [Ambien] 10 mg PO HS 01/22/18 06/04/18 hydrochlorothiazide 25 mg PO DAILY 02/03/18 06/04/18 Allergies Allergy/AdvReac Type Severity Reaction Status Date / Time adhesive Allergy Intermediate Rash Verified 06/04/18 06:30 ciprofloxacin Allergy Intermediate Abdominal Verified 06/04/18 06:30 Pain Review of Systems ROS Unobtainable ROS Unobtainable: unobtainable due to mental status PMFSH Medical History Medical History Anxiety (Acute) Diverticulitis (Acute) Hypertension (Acute) Pelvic fracture (Acute) TIA (transient ischemic attack) (Acute) Surgical History Surgical History H/O abdominal surgery (Acute) Hx of appendectomy (Acute) Family History Family History Other Epilepsy Social History Social History Substance History: No History of Abuse Second Hand Smoke Exposure: No Smoking Status: Former smoker Tobacco Type: Cigarettes How Often Do You Have a Drink Containing Alcohol: Monthly or less Recent Travel in [facility] within the Last 8 Weeks: No Recent Out of Country Travel within the Last 8 Weeks: No Immunization History Tetanus Immunization: Unable to Assess Exam Narrative Exam Narrative: General: The patient is a well-developed well-nourished female, sleeping soundly on arrival with normal vital signs, snoring respirations. The patient is brought in on a back board in full c-spine immobilization by emergency services. Head and Neck exam: Head is normocephalic, with evidence of trauma, periorbital ecchymosis, edema around the right eye. No facial bone tenderness or increased facial bone mobility noted on palpation. Eyes: The patient is not following commands, therefore extract the motion testing was unable to be accomplished. Pupils are equal round and reactive to light. The patient's pupils are 3 mm bilaterally. Nose: Midline septum with pink mucous membranes Mouth: Dentition unremarkable. Moist mucus membranes. Posterior oropharynx is not erythematous. No tonsillar hypertrophy. Uvula midline. Airway patent. Neck: The patient is immobilized in a cervical collar. No tracheal deviation. The trachea appears midline. Cardiovascular: Regular rate and rhythm without murmurs, gallops, or rubs. No pulse deficit to the extremities on simultaneous auscultation and palpation of her radial artery. Lungs: Clear to auscultation bilaterally. No wheezes, rhonchi, or rales. No chest wall tenderness to palpation. No erythema or ecchymosis noted. No crepitus , step off, or flail segment noted. Abdomen: Soft, without tenderness to palpation in all 4 quadrants of the abdomen. No guarding, rebound, or rigidity. No erythema or ecchymosis noted. Extremities: No instability or pain noted on pelvic rock. No clubbing, cyanosis , or edema. 2+ pulses in all 4 extremities. No extremity tenderness or deformity noted on palpation or passive/ active range of motion. Back: No spinous process tenderness to palpation. No stepoff or crepitus noted. No costovertebral angle tenderness to palpation. No erythema or ecchymosis. Neurologic Exam: The patient was initially not following commands. The patient was sleeping soundly, snoring respirations. After Narcan administration, the patient is able to follow commands and is awake and alert. The patient is moving all extremities equally with 5/5 strength, intact sensation over all dermatomes. She is still however confused with a GCS of 14. Skin Exam: No rash noted. Intact skin that is warm and dry. Course Reevaluation(s) Reevaluation #1: On first reevaluation patient opens eyes to voice but has an comprehension both speech when you ask her any question. She moves all extremities. Vitals stable. Blood work shows rhabdomyolysis and was given a fluid bolus. Imaging shows nasal bone fracture that can be followed up outpatient. Given persistent altered mental status with speech change will admit for further care. Consultations Consultation #1: Resident team agrees to admission Initial Documented Vital Signs Pulse Rate 80 06/04/18 06:30 Respiratory Rate 14 06/04/18 06:30 Blood Pressure 136/68 06/04/18 06:30 Pulse Oximetry 90 L 06/04/18 06:30 Last Documented Vital Signs Temperature 97.1 F L 06/04/18 16:00 Pulse Rate 73 06/04/18 16:00 Respiratory Rate 18 06/04/18 16:00 Blood Pressure 129/66 06/04/18 16:00 Pulse Oximetry 100 06/04/18 16:00 Sign Out Sign Out Data: Patient Sign Out occurred on 06/04/18 at 07:14. Patient's care was discussed, and care was transferred from Khloe Sawyer MD to Flor Carvalho MD. Sign Out Comment: The patient will be checked out to the oncoming emergency physician at the conclusion of my shift. The patient is pending imaging and laboratory studies as well as reexamination. The patient responded to 0.4 mg of Narcan administration IV. Last updated by Khloe Sawyer MD at 06/04/18 07:04 Post-Handoff Eval: Please see course Medical Decision Making MDM Narrative Medical decision making narrative: During the course of the patient's emergency department visit, the patient's history, examination, and differential diagnosis were reviewed with the patient. The patient was placed on a front desk monitor with oximetry and frequent blood pressure monitoring. The patient had IV access obtained and blood work sent for analysis. A diagnostic evaluation was started regarding the patient's altered mentation, head injury. The patient was initially provided normal saline IV fluids, Zofran for nausea, Narcan 0.4 mg IV. The patient responded to Narcan administration and became more awake and alert. The patient was checked out to the oncoming emergency physician to disposition the patient based on the conclusion of her workup. The patient is pending laboratory studies and imaging studies. Medical Screen Exam Complete: Yes Emergency Medical Condition: Yes Differential Diagnosis Differential Diagnosis: Electrolyte abnormality, bleed, polypharmacy, stroke Lab Data Result diagrams: 06/04/18 06:45 06/04/18 06:45 Lab Results 06/04/18 06/04/18 06/04/18 Range/Units 06:45 06:45 06:45 WBC 12.4 H (4.0-11.0) th/mm3 RBC 3.76 L (4.00-5.30) mil/mm3 Hgb 11.2 L (11.6-15.3) gm/dL Hct 34.6 L (35.0-46.0) % MCV 92.1 (80.0-100.0) fL MCH 29.7 (27.0-34.0) pg MCHC 32.3 (32.0-36.0) % RDW 16.4 (11.6-17.2) % Plt Count 276 (150-450) th/mm3 MPV 8.5 (7.0-11.0) fL Neut % (Auto) 88.6 H (16.0-70.0) % Lymph % (Auto) 5.9 L (9.0-44.0) % [place] % (Auto) 5.1 (0.0-8.0) % Eos % (Auto) 0.1 (0.0-4.0) % Baso % (Auto) 0.3 (0.0-2.0) % Neut # (Auto) 11.0 H (1.8-7.7) th/mm3 Lymph # (Auto) 0.7 L (1.0-4.8) th/mm3 [place] # (Auto) 0.6 (0.0-0.9) th/mm3 Eos # (Auto) 0.0 (0.0-0.4) th/mm3 Baso # (Auto) 0.0 (0.0-0.2) th/mm3 WBC Differential . Differential Comment Auto diff final PT (9.8-11.6) sec INR Ratio APTT (23.4-31.7) sec Sodium (136-145) meq/L Potassium (3.5-5.1) meq/L Chloride (98-107) meq/L Carbon Dioxide (21.0-32.0) meq/L Anion Gap (5-15) meq/L BUN (7-18) mg/dL Creatinine (0.50-1.00) mg/dL Estimated GFR (>89) mL/min Random Glucose (74-106) mg/dL Calcium (8.5-10.1) mg/dL Total Bilirubin (0.2-1.0) mg/dL AST (15-37) U/L ALT (10-53) U/L Alkaline Phosphatase (45-117) U/L Ammonia 11 (11-32) mcmol/L Total Creatine Kinase (26-192) U/L CK-MB (CK-2) (0.5-3.6) ng/mL CK-MB (CK-2) % (0.0-4.0) % Troponin I (0.02-0.05) ng/mL B-Natriuretic Peptide (0-100) pg/mL Total Protein (6.4-8.2) g/dL Albumin (3.4-5.0) g/dL Lipase 71 L (73-393) U/L Vitamin B12 (193-986) pg/mL Folate (3.1-17.5) ng/mL TSH 0.964 (0.358-3.740) uIU/mL Urine Color (Yellw/Straw) Urine Clarity (Clear) Urine pH (5.0-8.5) Ur Specific [place] (1.002-1.035) Urine Protein (Neg-Trace) mg/dL Urine Glucose (UA) (Negative) mg/dL Urine Ketones (Negative) mg/dL Urine Occult Blood (Negative) Urine Nitrate (Negative) Urine Bilirubin (Negative) Urine Urobilinogen (Less than 2) mg/dL Ur Leukocyte Esterase (Negative) Urine RBC (0-3) /hpf Urine WBC (0-5) /hpf Ur Squamous Epith Cells (0-5) /hpf Micro UA Comment Ur Microscopic Review Urine Culture Comments Urine Opiates Screen (Neg) Ur Barbiturates Screen (Neg) Ur Amphetamines Screen (Neg) U Benzodiazepines Scrn (Neg) Urine Cocaine Screen (Neg) U Cannabinoids Screen (Neg) Serum Alcohol Less than 3 (0-5) mg/dL 06/04/18 06/04/18 06/04/18 Range/Units 06:45 06:45 06:45 WBC (4.0-11.0) th/mm3 RBC (4.00-5.30) mil/mm3 Hgb (11.6-15.3) gm/dL Hct (35.0-46.0) % MCV (80.0-100.0) fL MCH (27.0-34.0) pg MCHC (32.0-36.0) % RDW (11.6-17.2) % Plt Count (150-450) th/mm3 MPV (7.0-11.0) fL Neut % (Auto) (16.0-70.0) % Lymph % (Auto) (9.0-44.0) % [place] % (Auto) (0.0-8.0) % Eos % (Auto) (0.0-4.0) % Baso % (Auto) (0.0-2.0) % Neut # (Auto) (1.8-7.7) th/mm3 Lymph # (Auto) (1.0-4.8) th/mm3 [place] # (Auto) (0.0-0.9) th/mm3 Eos # (Auto) (0.0-0.4) th/mm3 Baso # (Auto) (0.0-0.2) th/mm3 WBC Differential Differential Comment PT 10.0 (9.8-11.6) sec INR 1.0 Ratio APTT 26.5 (23.4-31.7) sec Sodium 141 (136-145) meq/L Potassium 4.0 (3.5-5.1) meq/L Chloride 104 (98-107) meq/L Carbon Dioxide 29.7 (21.0-32.0) meq/L Anion Gap 7 (5-15) meq/L BUN 21 H (7-18) mg/dL Creatinine 1.02 H (0.50-1.00) mg/dL Estimated GFR 54 L (>89) mL/min Random Glucose 93 (74-106) mg/dL Calcium 9.1 (8.5-10.1) mg/dL Total Bilirubin 0.4 (0.2-1.0) mg/dL AST 53 H (15-37) U/L ALT 28 (10-53) U/L Alkaline Phosphatase 95 (45-117) U/L Ammonia (11-32) mcmol/L Total Creatine Kinase 1186 H (26-192) U/L CK-MB (CK-2) 22.5 H (0.5-3.6) ng/mL CK-MB (CK-2) % 1.9 (0.0-4.0) % Troponin I Less than 0.02 L (0.02-0.05) ng/mL B-Natriuretic Peptide 19 (0-100) pg/mL Total Protein 6.9 (6.4-8.2) g/dL Albumin 3.2 L (3.4-5.0) g/dL Lipase (73-393) U/L Vitamin B12 (193-986) pg/mL Folate (3.1-17.5) ng/mL TSH (0.358-3.740) uIU/mL Urine Color (Yellw/Straw) Urine Clarity (Clear) Urine pH (5.0-8.5) Ur Specific [place] (1.002-1.035) Urine Protein (Neg-Trace) mg/dL Urine Glucose (UA) (Negative) mg/dL Urine Ketones (Negative) mg/dL Urine Occult Blood (Negative) Urine Nitrate (Negative) Urine Bilirubin (Negative) Urine Urobilinogen (Less than 2) mg/dL Ur Leukocyte Esterase (Negative) Urine RBC (0-3) /hpf Urine WBC (0-5) /hpf Ur Squamous Epith Cells (0-5) /hpf Micro UA Comment Ur Microscopic Review Urine Culture Comments Urine Opiates Screen (Neg) Ur Barbiturates Screen (Neg) Ur Amphetamines Screen (Neg) U Benzodiazepines Scrn (Neg) Urine Cocaine Screen (Neg) U Cannabinoids Screen (Neg) Serum Alcohol (0-5) mg/dL 06/04/18 06/04/18 06/04/18 Range/Units 06:45 08:30 08:30 WBC (4.0-11.0) th/mm3 RBC (4.00-5.30) mil/mm3 Hgb (11.6-15.3) gm/dL Hct (35.0-46.0) % MCV (80.0-100.0) fL MCH (27.0-34.0) pg MCHC (32.0-36.0) % RDW (11.6-17.2) % Plt Count (150-450) th/mm3 MPV (7.0-11.0) fL Neut % (Auto) (16.0-70.0) % Lymph % (Auto) (9.0-44.0) % [place] % (Auto) (0.0-8.0) % Eos % (Auto) (0.0-4.0) % Baso % (Auto) (0.0-2.0) % Neut # (Auto) (1.8-7.7) th/mm3 Lymph # (Auto) (1.0-4.8) th/mm3 [place] # (Auto) (0.0-0.9) th/mm3 Eos # (Auto) (0.0-0.4) th/mm3 Baso # (Auto) (0.0-0.2) th/mm3 WBC Differential Differential Comment PT (9.8-11.6) sec INR Ratio APTT (23.4-31.7) sec Sodium (136-145) meq/L Potassium (3.5-5.1) meq/L Chloride (98-107) meq/L Carbon Dioxide (21.0-32.0) meq/L Anion Gap (5-15) meq/L BUN (7-18) mg/dL Creatinine (0.50-1.00) mg/dL Estimated GFR (>89) mL/min Random Glucose (74-106) mg/dL Calcium (8.5-10.1) mg/dL Total Bilirubin (0.2-1.0) mg/dL AST (15-37) U/L ALT (10-53) U/L Alkaline Phosphatase (45-117) U/L Ammonia (11-32) mcmol/L Total Creatine Kinase (26-192) U/L CK-MB (CK-2) (0.5-3.6) ng/mL CK-MB (CK-2) % (0.0-4.0) % Troponin I (0.02-0.05) ng/mL B-Natriuretic Peptide (0-100) pg/mL Total Protein (6.4-8.2) g/dL Albumin (3.4-5.0) g/dL Lipase (73-393) U/L Vitamin B12 683 (193-986) pg/mL Folate Greater than 20.0 H (3.1-17.5) ng/mL TSH (0.358-3.740) uIU/mL Urine Color Yellow (Yellw/Straw) Urine Clarity Hazy H (Clear) Urine pH 5.0 (5.0-8.5) Ur Specific [place] 1.014 (1.002-1.035) Urine Protein Negative (Neg-Trace) mg/dL Urine Glucose (UA) Negative (Negative) mg/dL Urine Ketones Trace H (Negative) mg/dL Urine Occult Blood Negative (Negative) Urine Nitrate Negative (Negative) Urine Bilirubin Negative (Negative) Urine Urobilinogen Less than 2 (Less than 2) mg/dL Ur Leukocyte Esterase Negative (Negative) Urine RBC 1 (0-3) /hpf Urine WBC 1 (0-5) /hpf Ur Squamous Epith Cells <1 (0-5) /hpf Micro UA Comment Cath-culture not ind Ur Microscopic Review Not Reportable Urine Culture Comments Cath-cult not ind Urine Opiates Screen Pos H (Neg) Ur Barbiturates Screen Neg (Neg) Ur Amphetamines Screen Neg (Neg) U Benzodiazepines Scrn Neg (Neg) Urine Cocaine Screen Neg (Neg) U Cannabinoids Screen Neg (Neg) Serum Alcohol (0-5) mg/dL 06/04/18 Range/Units 15:11 WBC (4.0-11.0) th/mm3 RBC (4.00-5.30) mil/mm3 Hgb (11.6-15.3) gm/dL Hct (35.0-46.0) % MCV (80.0-100.0) fL MCH (27.0-34.0) pg MCHC (32.0-36.0) % RDW (11.6-17.2) % Plt Count (150-450) th/mm3 MPV (7.0-11.0) fL Neut % (Auto) (16.0-70.0) % Lymph % (Auto) (9.0-44.0) % [place] % (Auto) (0.0-8.0) % Eos % (Auto) (0.0-4.0) % Baso % (Auto) (0.0-2.0) % Neut # (Auto) (1.8-7.7) th/mm3 Lymph # (Auto) (1.0-4.8) th/mm3 [place] # (Auto) (0.0-0.9) th/mm3 Eos # (Auto) (0.0-0.4) th/mm3 Baso # (Auto) (0.0-0.2) th/mm3 WBC Differential Differential Comment PT (9.8-11.6) sec INR Ratio APTT (23.4-31.7) sec Sodium (136-145) meq/L Potassium (3.5-5.1) meq/L Chloride (98-107) meq/L Carbon Dioxide (21.0-32.0) meq/L Anion Gap (5-15) meq/L BUN (7-18) mg/dL Creatinine (0.50-1.00) mg/dL Estimated GFR (>89) mL/min Random Glucose (74-106) mg/dL Calcium (8.5-10.1) mg/dL Total Bilirubin (0.2-1.0) mg/dL AST (15-37) U/L ALT (10-53) U/L Alkaline Phosphatase (45-117) U/L Ammonia (11-32) mcmol/L Total Creatine Kinase 1555 H (26-192) U/L CK-MB (CK-2) 25.7 H (0.5-3.6) ng/mL CK-MB (CK-2) % 1.7 (0.0-4.0) % Troponin I (0.02-0.05) ng/mL B-Natriuretic Peptide (0-100) pg/mL Total Protein (6.4-8.2) g/dL Albumin (3.4-5.0) g/dL Lipase (73-393) U/L Vitamin B12 (193-986) pg/mL Folate (3.1-17.5) ng/mL TSH (0.358-3.740) uIU/mL Urine Color (Yellw/Straw) Urine Clarity (Clear) Urine pH (5.0-8.5) Ur Specific [place] (1.002-1.035) Urine Protein (Neg-Trace) mg/dL Urine Glucose (UA) (Negative) mg/dL Urine Ketones (Negative) mg/dL Urine Occult Blood (Negative) Urine Nitrate (Negative) Urine Bilirubin (Negative) Urine Urobilinogen (Less than 2) mg/dL Ur Leukocyte Esterase (Negative) Urine RBC (0-3) /hpf Urine WBC (0-5) /hpf Ur Squamous Epith Cells (0-5) /hpf Micro UA Comment Ur Microscopic Review Urine Culture Comments Urine Opiates Screen (Neg) Ur Barbiturates Screen (Neg) Ur Amphetamines Screen (Neg) U Benzodiazepines Scrn (Neg) Urine Cocaine Screen (Neg) U Cannabinoids Screen (Neg) Serum Alcohol (0-5) mg/dL Imaging Data Radiologist's impression: Cervical Spine CT 06/04/18 06:34 CONCLUSION: 1. Advanced degenerative changes in the cervical spine as above. The most significant abnormality is 3 mm anterolisthesis of C4 relative to C5. 2. No acute fracture of the cervical spine is identified. Face CT 06/04/18 06:34 CONCLUSION: 1. Mildly angulated fracture of the nasal bone. 2. Diffuse soft tissue swelling around the right orbit. No definite orbital fracture seen. Head CT 18 06:34 CONCLUSION: 1. No acute intracranial abnormality identified. 2. Soft tissue contusion/swelling in the scalp along the right orbit and posteriorly. . Chest X-Ray 18 06:45 CONCLUSION: No acute cardiopulmonary findings identified. Pelvis X-Ray 06/04/18 06:45 CONCLUSION: Degenerative changes in the hips and lumbar spine. No acute fracture seen. ECG Data Attestation: I personally reviewed and interpreted this ECG as follows: Interpretation: Patient had a EKG done on arrival that shows a sinus rhythm heart rate of 66, QRS duration 108 ms, QTC [address] segment elevation. T waves are inverted in V1. Discharge Plan Discharge Disposition Patient Disposition: 30 Still Patient Discharge Details Diagnosis: Head injury, Altered mental status, Closed fracture nasal bone, Rhabdomyolysis Physicians Team ED Provider: Flor Carvalho Primary Care Provider: UNKNOWN, Attending Provider: Sam Couch Other Providers: Samy Cowan ; [facility],Insurance Status ED Status: Left Department Discharge Information Discharge Date/Time: 06/04/18 11:54
[2018-06-04 07:16] LABS: Activated Partial Thrombo Time 26.5 sec (23.4-31.7)
--- NOTE | 2018-06-04 07:23 | CT ---
EXAM DATE: 06/04/2018 7:18 AM EST AGE/SEX: 68 years / Female INDICATIONS: Found on the floor, decreased level of consciousness. Right orbital swelling. CLINICAL DATA: This is the patient's initial encounter. Patient reports that signs and symptoms have been present for 1 day and indicates a pain score of Nonresponsive. MEDICAL/SURGICAL HISTORY: Cerebrovascular disease. Hypertension. Appendectomy. RADIATION DOSE: 18.21 CTDI (mGy) COMPARISON: No prior exams available for comparison. TECHNIQUE: CT of the head without contrast. Using automated exposure control and adjustment of the mA and/or kV according to patient size, radiation dose was kept as low as reasonably achievable to ob tain optimal diagnostic quality images. DICOM format image data is available electronically for revi ew and comparison. FINDINGS: Cerebrum: The ventricles are normal for age. No evidence of midline shift, mass lesion, hemorrhage or acute infarction. No extraaxial fluid collections are seen. Posterior Fossa: The cerebellum and brainstem are intact. The 4th ventricle is midline. The cerebe llopontine angle is unremarkable. Extracranial: The visualized portion of the orbits is intact. Skull: The examination demonstrates fairly extensive soft tissue swelling around the right orbit and along the posterior scalp as well. No definite skull fracture is seen. Visualized sinuses appear sherrie ar. CONCLUSION: 1. No acute intracranial abnormality identified. 2. Soft tissue contusion/swelling in the scalp along the right orbit and posteriorly. . Electronically signed by: Andre Becerra MD 06/04/2018 7:21 AM EST
--- NOTE | 2018-06-04 07:24 | CT ---
EXAM DATE: 06/04/2018 7:20 AM EST AGE/SEX: 68 years / Female INDICATIONS: Found on the floor, decreased level of consciousness. Right orbital swelling. CLINICAL DATA: This is the patient's initial encounter. Patient reports that signs and symptoms have been present for 1 day and indicates a pain score of Nonresponsive. MEDICAL/SURGICAL HISTORY: Cerebrovascular disease. Hypertension. Appendectomy. RADIATION DOSE: 18.99 CTDI (mGy) COMPARISON: No prior exams available for comparison. TECHNIQUE: Contiguous images in the axial and coronal planes were obtained using helical multirow de tector technique. Using automated exposure control and adjustment of the mA and/or kV according to p atient size, radiation dose was kept as low as reasonably achievable to obtain optimal diagnostic yu lity images. DICOM format image data is available electronically for review and comparison. FINDINGS: Orbits: The orbital and infraorbital osseous structures are intact. The retroconal structures have a normal configuration. No radiopaque foreign bodies are seen. Nasal Bone: The examination demonstrates a mildly angulated fracture through the nasal bone. Zygomatic Arches: Symmetric without evidence of fracture. Sinuses: The maxillary, ethmoid, and frontal sinuses are intact. No air-fluid levels seen. Nasal Cavity: The nasal septum is intact and midline. The lacrimal ducts are intact. Soft Tissues: No radiopaque foreign bodies seen. No soft-tissue swelling is seen. Intracranial: No intracranial air seen. Cribriform Plate: Grossly intact. CONCLUSION: 1. Mildly angulated fracture of the nasal bone. 2. Diffuse soft tissue swelling around the right orbit. No definite orbital fracture seen. Electronically signed by: Andre Becerra MD 06/04/2018 7:23 AM EST
[2018-06-04 07:26] LABS: Alanine Aminotransferase 28 U/L (10-53); Albumin 3.2 g/dL (3.4-5.0); Anion Gap 7 meq/L (5-15); Aspartate Aminotransferase 53 U/L (15-37); Blood Urea Nitrogen 21 mg/dL (7-18); Calcium 9.1 mg/dL (8.5-10.1); Carbon Dioxide 29.7 meq/L (21.0-32.0); Chloride 104 meq/L (98-107); Glomerular Filtration Rate 54 mL/min (>89); Glucose,Random 93 mg/dL (74-106); Sodium 141 meq/L (136-145)
--- NOTE | 2018-06-04 07:28 | CT ---
EXAM DATE: 06/04/2018 7:21 AM EST AGE/SEX: 68 years / Female INDICATIONS: Found on the floor, decreased level of consciousness. Right orbital swelling. CLINICAL DATA: This is the patient's initial encounter. Patient reports that signs and symptoms have been present for 1 day and indicates a pain score of Nonresponsive. MEDICAL/SURGICAL HISTORY: Hypertension. Cerebrovascular disease. Appendectomy. RADIATION DOSE: 37.80 CTDI (mGy) COMPARISON: No prior exams available for comparison. TECHNIQUE: Contiguous axial images were obtained using helical multirow detector technique. The vol umetric data was post-processed with multiplanar reconstruction in oblique axial, sagittal, and coron al planes. Using automated exposure control and adjustment of the mA and/or kV according to patient s ize, radiation dose was kept as low as reasonably achievable to obtain optimal diagnostic quality alberto ges. DICOM format image data is available electronically for review and comparison. FINDINGS: Sagittal and coronal reformats demonstrate advanced degenerative changes throughout the cervical spin e with grade 1 anterolisthesis of C4 relative to C5. There is approximately 3 mm anterolisthesis of t he C4 vertebral body relative to the C5 vertebral body. No acute fracture of the cervical spine is identified. There are mild degenerative changes within the atlantodens joint. C2-3: The bony spinal canal is normal in size. No evidence of disc bulge or herniation. The neural foramina are bilaterally patent. C3-4: There is a small broad-based disc bulge. The thecal space and foramina are adequate. There is advanced facet arthritis bilaterally. C4-5: There is grade 1 anterolisthesis of C4 relative to C5. The thecal space and foramina appear ad equate. There is advanced facet arthritis bilaterally. C5-6: There is a degenerated disc with diffuse osteophytic ridging from the vertebral endplates. The re is minimal disc bulge. The thecal space and foramina are adequate. There is moderate facet arthrit is bilaterally. C6-7: There is a severely degenerated discs with broad-based disc bulge and diffuse osteophytic ridg ing. This just effaces the ventral thecal sac. There is mild encroachment of disc bulge and uncoverte bral osteophyte on the lateral recess bilaterally. There is moderate facet arthritis bilaterally. C7-T1: There is minimal anterolisthesis of C7 relative to T1. The thecal space and foramina are adeq uate. There is moderate facet arthritis bilaterally. CONCLUSION: 1. Advanced degenerative changes in the cervical spine as above. The most significant abnormality is 3 mm anterolisthesis of C4 relative to C5. 2. No acute fracture of the cervical spine is identified. Electronically signed by: Andre Becerra MD 06/04/2018 7:27 AM EST
[2018-06-04 07:31] LABS: Lipase 71 U/L (73-393)
--- NOTE | 2018-06-04 07:31 | XR ---
EXAM DATE: 06/04/2018 7:19 AM EST AGE/SEX: 68 years / Female INDICATIONS: Unresponsive found on floor, facial bruising, painful right hip. CLINICAL DATA: This is the patient's initial encounter. Patient reports that signs and symptoms have been present for 1 day and indicates a pain score of 9/10. MEDICAL/SURGICAL HISTORY: Non-responsive. Non-responsive. COMPARISON: C, CHEST 1V SINGLE AP, 02/03/2018. . FINDINGS: The cardiac and mediastinal contours are within normal limits. The lungs are clear. There is moderate rotatory scoliosis of the thoracic spine. CONCLUSION: No acute cardiopulmonary findings identified. Electronically signed by: Andre Becerra MD 06/04/2018 7:30 AM EST
--- NOTE | 2018-06-04 07:32 | XR ---
EXAM DATE: 06/04/2018 7:23 AM EST AGE/SEX: 68 years / Female INDICATIONS: Found on floor this morning, unresponsive. CLINICAL DATA: This is the patient's initial encounter. Patient reports that signs and symptoms have been present for 1 day and indicates a pain score of Nonresponsive. MEDICAL/SURGICAL HISTORY: Non-responsive. Non-responsive. COMPAR[place] [facility] [place]16[place]. . FINDINGS: The bony mineralization is within normal limits. The femoral heads are well situated within the aceta bula bilaterally. There are moderate arthritic changes. No acute pelvic fracture is identified. There are severe degenerative changes throughout the lower lumbar spine. 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 No acute fracture seen. Electronically signed by: Andre Becerra MD 06/04/2018 7:30 AM EST
[2018-06-04 07:40] LABS: Thyroid Stimulating Hormone 0.964 uIU/mL (0.358-3.740)
[2018-06-04 07:42] LABS: Alkaline Phosphatase 95 U/L (45-117); Creatine Kinase 1186 U/L (26-192); Total Protein 6.9 g/dL (6.4-8.2)
[2018-06-04 07:58] LABS: CKMB Percent 1.9 % (0.0-4.0); Creatine Kinase MB 22.5 ng/mL (0.5-3.6)
[2018-06-04] MEDS ORDERED: Sod Chloride 0.9% Inj 1,000 ML IV.SIG SCH (08:00)
[2018-06-04 08:49] LABS: Bilirubin,Urine Negative (Negative); Clarity,Urine Hazy (Clear); Color,Urine Yellow (Yellw/Straw); Glucose,Urine (UA) Negative (Negative); Leukocyte Esterase,Urine Negative (Negative); Nitrite,Urine Negative (Negative); Specific Gravity,Urine 1.014 (1.002-1.035); Squamous Epithelial Cell,Urine <1 /hpf (0-5)
[2018-06-04 08:53] LABS: Amphetamine Screen,Urine Neg (Neg); Barbiturate Screen,Urine Neg (Neg); Cannabinoid Screen,Urine Neg (Neg); Cocaine Screen,Urine Neg (Neg)
[2018-06-04 09:04] LABS: Opiate Screen,Urine Pos (Neg)
--- NOTE | 2018-06-04 10:10 | P.HPFP ---
Addendum entered and electronically signed by Farooq Munguia III, MD, R2 15:59: GENERAL: elderly female with right orbital ecchymosis lying in bed, confused. SKIN: Warm and dry. Ecchymosis around right eye with swelling. Face non-tender to palpation. HEAD: Normocephalic. Contusion on EYES: No scleral icterus. No injection or drainage. pt unable to follow some commands, so unable to assess extraocular movements. Pt field of vision appears preserved as pt can count numbers of fingers. Vision of right eye appears preserved. PERRLA. NECK: Supple, trachea midline. No JVD or lymphadenopathy. CARDIOVASCULAR: Regular rate and rhythm without murmurs, gallops, or rubs. RESPIRATORY: Breath sounds equal bilaterally. No accessory muscle use. GASTROINTESTINAL: Abdomen soft, non-tender, nondistended. +BS. MUSCULOSKELETAL: No cyanosis, or edema. BACK: Nontender without obvious deformity. No CVA tenderness. Original Note: History of Present Illness Primary Care Physician: UNKNOWN <Sam Couch - 06/04/18 19:30> Dr Kennedy <Farooq Munguia III - 06/04/18 10:10> History of Present Illness: Ms Wang is a 68 YO female w/PMHx HTN, recent falls resulting in pelvic and wrist fractures in the last year, HTN, GERD, and chronic pain who presents after a fall (time unknown) and pt was found down this morning naked on her floor by her daughter around 5 AM with facial and head trauma. Last known normal was by daughter and ex- last night about 9 :30PM. Patient reports that she fell last night. There is no report of urinary or fecal incontinence, but pt does indicate that she did lose consciousness. History is provided mostly by her daughter who reports patient has had word finding difficulty for the past few weeks off and on that occur at no particular time of the day. Ex- reports that she will nod off throughout the day. She follows commands but cannot speak at times. These episodes last about 10 minutes at a time. She went out for her birthday and did have a chico. Daughter states her mother has a fentanyl patch prescribed by her pain management doctor (name unknown), but daughter does not think her mother has a Percocet prescription. The fentanyl patch is not in the mother's med recs ; however, the Percocet is. Patient denies chest pain, SOB. She reports depression, but denies suicidal attempt. Patient may have RA and or osteoporosis but the workup is currently being completed. When pt was examined with her daughter and ex- out of the room, pt states she feels safe at home PMH: HTN GERD hip fracture after fall not requiring surgery degenerative disc disease chronic pain PSH: wrist fracture s/p placement of plate colectomy in August without ostomy due to bowel obstruction Fam Hx: mother: lung cancer father: aneurysm maternal aunt: lung cancer Allergies: adhesive ciprofloxacin Social: lives with daughter and ex- in [facility] tobacco- former smoker quit 15 years ago. 1 ppd alcohol- rarely illicit drugs: none <Farooq Munguia III 06/04/18 15:58> - Diagnosis (1) Depression (2) Polypharmacy (3) Hx of fracture (4) Dementia (5) Head injury (6) Altered mental status (7) Closed fracture nasal bone (8) Rhabdomyolysis (9) Nutrition, metabolism, and development symptoms <Sam Couch 06/04/18 19:30> (1) Depression (2) Polypharmacy (3) Hx of fracture (4) Dementia (5) Head injury (6) Altered mental status (7) Closed fracture nasal bone (8) Rhabdomyolysis (9) Nutrition, metabolism, and development symptoms <Farooq Munguia III 06/04/18 15:31> Inpatient Certification: I certify that the inpatient services were ordered in accordance with Medicare regulations governing the order. This includes certification that hospital inpatient services are reasonable and necessary and in the case of services not specified as inpatient-only under 42 CFR 419.22(n), that they are appropriately provided as inpatient services in accordance to with the 2-midnight benchmark under 43 CFR 412.3(e) <Sam Couch 06/04/18 19:30> Review of Systems Constitutional: Denies chills, Denies fever(s), Denies headache(s) <Farooq Munguia III 06/04/18 11:38> Eyes: Denies change in vision <Farooq Munguia III 06/04/18 11:38> Ears, Nose, Mouth, and Throat: Reports nasal trauma, Denies facial pain, Denies headache(s), Denies mouth pain <Farooq Munguia III [facility] 06/04/18 11:38> Cardiovascular: Denies chest pain, Denies shortness of breath <Nilda KUO Farooq [facility] 06/04/18 11:38> Respiratory: Denies cough, Denies shortness of breath <Nilda [facility] 11:38> Gastrointestinal: Denies abdominal pain, Denies incontinent of stools, Denies loose stools, Denies nausea, Denies vomiting <Farooq Munguia III [facility] 06/04/18 11 :38> Genitourinary: Denies painful urination, Denies urinary incontinence <Nilda [facility] 06/04/18 11:38> Musculoskeletal: Reports other (chronic pain) <Nilda [facility] 06/04/18 11:38> Neurologic: Reports abnormal walking, Reports behavioral changes, Denies dizziness, Denies fainting, Denies seizure-like activity <Nilda [facility] 06/04/18 11:38> Psychiatric: Reports depression <Nilda [facility] 06/04/18 11:38> PMFSH - History History Provided By: Locomotive Crane Operator / EMT <Nilda [facility] 06/04/18 10:10> - Medical History Medical History: Medical History (Last Reviewed 06/04/18 @ 12:54 by Nettie Manrique) Anxiety Diverticulitis Hypertension Pelvic fracture TIA (transient ischemic attack) <Sam Couch 06/04/18 19:30> Medical History (Last Reviewed 06/04/18 @ 12:54 by Nettie Manrique) Anxiety Diverticulitis Hypertension Pelvic fracture TIA (transient ischemic attack) <Nilda [facility] 06/04/18 15:58> - Surgical History Surgical History: Surgical History (Last Reviewed 06/04/18 @ 11:27 by Marielos Vargas) H/O abdominal surgery Hx of appendectomy <Sam Couch 06/04/18 19:30> Surgical History (Last Reviewed 06/04/18 @ 11:27 by Marielos Vargas) H/O abdominal surgery Hx of appendectomy <[facility]ilda [facility] 06/04/18 11:44> - Family History Family History: Family History (Last Reviewed 06/04/18 @ 07:07 by Khloe Sawyer MD) Other Epilepsy <Sam Couch Mara 06/04/18 19:30> Family History (Last Reviewed 06/04/18 @ 07:07 by Khloe Sawyer MD) Other Epilepsy <Farooq Munguia III 06/04/18 10:10> - Tobacco History Second Hand Smoke Exposure: No <Farooq Munguia III 06/04/18 10:10> Smoking Status: Unknown if ever smoked <Farooq Munguia III 06/04/18 10:10> Tobacco Type: Cigarettes <Farooq Munguia III 06/04/18 10:10> - Alcohol History How Often Do You Have a Drink Containing Alcohol: Unable to Obtain <Farooq Munguia III 06/04/18 10:10> - Substance Use History Substance History: Unable to Obtain <Farooq Munguia III 06/04/18 10:10> - Immunization History Tetanus Immunization: Unable to Assess <Farooq Munguia III 06/04/18 10:10> Medications and Allergies Allergies Allergy/AdvReac Type Severity Reaction Status Date / Time adhesive Allergy Intermediate Rash Verified 06/04/18 06:30 ciprofloxacin Allergy Intermediate Abdominal Verified 06/04/18 06:30 Pain <Sam Couch Mara 06/04/18 19:30> Home Medications Medication Instructions Recorded Confirmed Type alprazolam [Xanax] 0.25 mg PO QID 01/22/18 06/04/18 History carisoprodol [Soma] 350 mg PO TID 01/22/18 06/04/18 History escitalopram oxalate [Lexapro] 20 mg PO DAILY 01/22/18 06/04/18 History mirtazapine [Remeron] 15 mg PO DAILY 01/22/18 06/04/18 History oxycodone-acetaminophen [Percocet] 1 tab PO TID 01/22/18 06/04/18 History ranitidine HCl [Zantac] 300 mg PO HS 01/22/18 06/04/18 History sucralfate [Carafate] 1 gm PO ACHS 07/03/18 11/13/18 History zolpidem [Ambien] 10 mg PO HS 01/22/18 06/04/18 History hydrochlorothiazide 25 mg PO DAILY 02/03/18 06/04/18 History <Sam Couch - 06/04/18 19:30> Active Medications: Active Medications Acetaminophen (Tylenol) 650 mg PO Q4H PRN PRN Reason: Temp > 100.4 Escitalopram Oxalate (Lexapro) 20 mg PO DAILY [facility] Flumazenil (Romazecon Inj) 0.2 mg IV.PUSH Q1M PRN PRN Reason: OVERSEDATION Haloperidol Lactate (Haldol Inj) 1 mg IV.PUSH Q15M PRN PRN Reason: for severe agitation Hydrochlorothiazide (Hydrodiuril) 25 mg PO DAILY [facility] Sodium Chloride (Ns Inj) 1,000 mls @ 150 mls/hr IV.CONT .Q6H40M [place] Lorazepam (Ativan) 1 mg PO Q4H PRN PRN Reason: for CIWA 8-10 Lorazepam (Ativan) 2 mg PO Q2H PRN PRN Reason: for CIWA 11-14 Lorazepam (Ativan Inj) 2 mg IV.PUSH Q2H PRN PRN Reason: for CIWA 11-14 Lorazepam (Ativan Inj) 2 mg IV.PUSH Q1H PRN PRN Reason: for CIWA 15-20 Lorazepam (Ativan Inj) 2 mg IV.PUSH Q15M PRN PRN Reason: for CIWA > 20 Lorazepam (Ativan Inj) 1 mg IV.PUSH Q4H PRN PRN Reason: for CIWA 8-10 Mirtazapine (Remeron) 15 mg PO DAILY [facility] Ranitidine HCl (Zantac) 300 mg PO HS [facility] Senna/Docusate Sodium (Ruby-Colace) 1 tab PO BID [facility] Sucralfate (Carafate Liq) 1 gm PO ACHS [facility] Last Admin: 06/04/18 18:24 Dose: Not Given <Sam Couch - 06/04/18 19:30> Exam Vital signs: Vital Signs 06/04/18 06:30 06/04/18 06:39 06/04/18 07:53 Temperature 96.5 F L Pulse Rate 80 84 Respiratory Rate 14 11 L Blood Pressure 136/68 144/104 H Pulse Oximetry 90 L 2 L 100 06/04/18 09:36 06/04/18 09:41 06/04/18 12:00 Temperature 97.3 F L Pulse Rate 77 65 61 Respiratory Rate 17 17 16 Blood Pressure 135/81 135/81 126/58 L Pulse Oximetry 99 100 100 06/04/18 16:00 Temperature 97.1 F L Pulse Rate 73 Respiratory Rate 18 Blood Pressure 129/66 Pulse Oximetry 100 Intake & Output 06/04/18 06/04/18 06/05/18 06:59 18:59 06:59 Intake Total 1000 / 1000 Balance 1000 / 1000 Weight 79.379 kg Intake: IV 1000 / 1000 NS Inj 1,000 ML @ 1000 mls/hr 1000 / 1000 IV.SIG BOLUS [place] Rx#:[id number] Other: # Voids 2 <Sam Couch - 06/04/18 19:30> Vital Signs 06/04/18 06:30 06/04/18 06:39 06/04/18 07:53 Temperature 96.5 F L Pulse Rate 80 84 Respiratory Rate 14 11 L Blood Pressure 136/68 144/104 H Pulse Oximetry 90 L 2 L 100 06/04/18 09:36 06/04/18 09:41 Temperature Pulse Rate 77 65 Respiratory Rate 17 17 Blood Pressure 135/81 135/81 Pulse Oximetry 99 100 Intake & Output 06/03/18 06/04/18 06/04/18 18:59 06:59 18:59 Weight 79.379 kg <Farooq Munguia III H - 06/04/18 10:10> Results - Labs Result diagrams: 06/04/18 06:45 06/04/18 06:45 <Sam oCuch - 06/04/18 19:30> Abnormal lab results 06/04/18 06/04/18 06/04/18 Range/Units 06:45 06:45 06:45 WBC 12.4 H (4.0-11.0) th/mm3 RBC 3.76 L (4.00-5.30) mil/mm3 Hgb 11.2 L (11.6-15.3) gm/dL Hct 34.6 L (35.0-46.0) % Neut % (Auto) 88.6 H (16.0-70.0) % Lymph % (Auto) 5.9 L (9.0-44.0) % Neut # (Auto) 11.0 H (1.8-7.7) th/mm3 Lymph # (Auto) 0.7 L (1.0-4.8) th/mm3 BUN 21 H (7-18) mg/dL Creatinine 1.02 H (0.50-1.00) mg/dL Estimated GFR 54 L (>89) mL/min AST 53 H (15-37) U/L Total Creatine Kinase 1186 H (26-192) U/L CK-MB (CK-2) 22.5 H (0.5-3.6) ng/mL Troponin I Less than 0.02 L (0.02-0.05) ng/mL Albumin 3.2 L (3.4-5.0) g/dL Lipase 71 L (73-393) U/L Folate (3.1-17.5) ng/mL Urine Clarity (Clear) Urine Ketones (Negative) mg/dL Urine Opiates Screen (Neg) 06/04/18 06/04/18 06/04/18 Range/Units 06:45 08:30 08:30 WBC (4.0-11.0) th/mm3 RBC (4.00-5.30) mil/mm3 Hgb (11.6-15.3) gm/dL Hct (35.0-46.0) % Neut % (Auto) (16.0-70.0) % Lymph % (Auto) (9.0-44.0) % Neut # (Auto) (1.8-7.7) th/mm3 Lymph # (Auto) (1.0-4.8) th/mm3 BUN (7-18) mg/dL Creatinine (0.50-1.00) mg/dL Estimated GFR (>89) mL/min AST (15-37) U/L Total Creatine Kinase (26-192) U/L CK-MB (CK-2) (0.5-3.6) ng/mL Troponin I (0.02-0.05) ng/mL Albumin (3.4-5.0) g/dL Lipase (73-393) U/L Folate Greater than 20.0 H (3.1-17.5) ng/mL Urine Clarity Hazy H (Clear) Urine Ketones Trace H (Negative) mg/dL Urine Opiates Screen Pos H (Neg) 06/04/18 Range/Units 15:11 WBC (4.0-11.0) th/mm3 RBC (4.00-5.30) mil/mm3 Hgb (11.6-15.3) gm/dL Hct (35.0-46.0) % Neut % (Auto) (16.0-70.0) % Lymph % (Auto) (9.0-44.0) % Neut # (Auto) (1.8-7.7) th/mm3 Lymph # (Auto) (1.0-4.8) th/mm3 BUN (7-18) mg/dL Creatinine (0.50-1.00) mg/dL Estimated GFR (>89) mL/min AST (15-37) U/L Total Creatine Kinase 1555 H (26-192) U/L CK-MB (CK-2) 25.7 H (0.5-3.6) ng/mL Troponin I (0.02-0.05) ng/mL Albumin (3.4-5.0) g/dL Lipase (73-393) U/L Folate (3.1-17.5) ng/mL Urine Clarity (Clear) Urine Ketones (Negative) mg/dL Urine Opiates Screen (Neg) Short CBC 06/04/18 Range/Units 06:45 WBC 12.4 H (4.0-11.0) th/mm3 Hgb 11.2 L (11.6-15.3) gm/dL Hct 34.6 L (35.0-46.0) % Plt Count 276 (150-450) th/mm3 BMP 06/04/18 06:45 Sodium 141 Potassium 4.0 Chloride 104 Carbon Dioxide 29.7 BUN 21 H Creatinine 1.02 H Calcium 9.1 Cardiac Enzymes 06/04/18 06/04/18 Range/Units 06:45 15:11 Total Creatine Kinase 1186 H 1555 H (26-192) U/L CK-MB (CK-2) 22.5 H 25.7 H (0.5-3.6) ng/mL Troponin I Less than 0.02 L (0.02-0.05) ng/mL Liver Function 06/04/18 Range/Units 06:45 Total Bilirubin 0.4 (0.2-1.0) mg/dL AST 53 H (15-37) U/L ALT 28 (10-53) U/L Alkaline Phosphatase 95 (45-117) U/L Albumin 3.2 L (3.4-5.0) g/dL Urine 06/04/18 Range/Units 08:30 Urine Color Yellow (Yellw/Straw) Urine Clarity Hazy H (Clear) Urine pH 5.0 (5.0-8.5) Ur Specific [place] 1.014 (1.002-1.035) Urine Protein Negative (Neg-Trace) mg/dL Urine Glucose (UA) Negative (Negative) mg/dL <Sam Couch K - 06/04/18 19:30> Abnormal lab results 06/04/18 06/04/18 06/04/18 Range/Units 06:45 06:45 06:45 WBC 12.4 H (4.0-11.0) th/mm3 RBC 3.76 L (4.00-5.30) mil/mm3 Hgb 11.2 L (11.6-15.3) gm/dL Hct 34.6 L (35.0-46.0) % Neut % (Auto) 88.6 H (16.0-70.0) % Lymph % (Auto) 5.9 L (9.0-44.0) % Neut # (Auto) 11.0 H (1.8-7.7) th/mm3 Lymph # (Auto) 0.7 L (1.0-4.8) th/mm3 BUN 21 H (7-18) mg/dL Creatinine 1.02 H (0.50-1.00) mg/dL Estimated GFR 54 L (>89) mL/min AST 53 H (15-37) U/L Total Creatine Kinase 1186 H (26-192) U/L CK-MB (CK-2) 22.5 H (0.5-3.6) ng/mL Troponin I Less than 0.02 L (0.02-0.05) ng/mL Albumin 3.2 L (3.4-5.0) g/dL Lipase 71 L (73-393) U/L Urine Clarity (Clear) Urine Ketones (Negative) mg/dL Urine Opiates Screen (Neg) 06/04/18 06/04/18 Range/Units 08:30 08:30 WBC (4.0-11.0) th/mm3 RBC (4.00-5.30) mil/mm3 Hgb (11.6-15.3) gm/dL Hct (35.0-46.0) % Neut % (Auto) (16.0-70.0) % Lymph % (Auto) (9.0-44.0) % Neut # (Auto) (1.8-7.7) th/mm3 Lymph # (Auto) (1.0-4.8) th/mm3 BUN (7-18) mg/dL Creatinine (0.50-1.00) mg/dL Estimated GFR (>89) mL/min AST (15-37) U/L Total Creatine Kinase (26-192) U/L CK-MB (CK-2) (0.5-3.6) ng/mL Troponin I (0.02-0.05) ng/mL Albumin (3.4-5.0) g/dL Lipase (73-393) U/L Urine Clarity Hazy H (Clear) Urine Ketones Trace H (Negative) mg/dL Urine Opiates Screen Pos H (Neg) Short CBC 06/04/18 Range/Units 06:45 WBC 12.4 H (4.0-11.0) th/mm3 Hgb 11.2 L (11.6-15.3) gm/dL Hct 34.6 L (35.0-46.0) % Plt Count 276 (150-450) th/mm3 BMP 06/04/18 06:45 Sodium 141 Potassium 4.0 Chloride 104 Carbon Dioxide 29.7 BUN 21 H Creatinine 1.02 H Calcium 9.1 Cardiac Enzymes 06/04/18 Range/Units 06:45 Total Creatine Kinase 1186 H (26-192) U/L CK-MB (CK-2) 22.5 H (0.5-3.6) ng/mL Troponin I Less than 0.02 L (0.02-0.05) ng/mL Liver Function 06/04/18 Range/Units 06:45 Total Bilirubin 0.4 (0.2-1.0) mg/dL AST 53 H (15-37) U/L ALT 28 (10-53) U/L Alkaline Phosphatase 95 (45-117) U/L Albumin 3.2 L (3.4-5.0) g/dL Urine 06/04/18 Range/Units 08:30 Urine Color Yellow (Yellw/Straw) Urine Clarity Hazy H (Clear) Urine pH 5.0 (5.0-8.5) Ur Specific [place] 1.014 (1.002-1.035) Urine Protein Negative (Neg-Trace) mg/dL Urine Glucose (UA) Negative (Negative) mg/dL <Farooq Munguia III - 06/04/18 10:10> - Imaging Impressions Cervical Spine CT 06/04/18 06:34 CONCLUSION: 1. Advanced degenerative changes in the cervical spine as above. The most significant abnormality is 3 mm anterolisthesis of C4 relative to C5. 2. No acute fracture of the cervical spine is identified. Face CT 06/04/18 06:34 CONCLUSION: 1. Mildly angulated fracture of the nasal bone. 2. Diffuse soft tissue swelling around the right orbit. No definite orbital fracture seen. Head CT 06/04/18 06:34 CONCLUSION: 1. No acute intracranial abnormality identified. 2. Soft tissue contusion/swelling in the scalp along the right orbit and posteriorly. . Chest X-Ray 06/04/18 06:45 CONCLUSION: No acute cardiopulmonary findings identified. Pelvis X-Ray 06/04/18 06:45 CONCLUSION: Degenerative changes in the hips and lumbar spine. No acute fracture seen. <Sam Couch - 06/04/18 19:30> Impressions Cervical Spine CT 06/04/18 06:34 CONCLUSION: 1. Advanced degenerative changes in the cervical spine as above. The most significant abnormality is 3 mm anterolisthesis of C4 relative to C5. 2. No acute fracture of the cervical spine is identified. Face CT 06/04/18 06:34 CONCLUSION: 1. Mildly angulated fracture of the nasal bone. 2. Diffuse soft tissue swelling around the right orbit. No definite orbital fracture seen. Head CT 06/04/18 06:34 CONCLUSION: 1. No acute intracranial abnormality identified. 2. Soft tissue contusion/swelling in the scalp along the right orbit and posteriorly. . Chest X-Ray 06/04/18 06:45 CONCLUSION: No acute cardiopulmonary findings identified. Pelvis X-Ray 06/04/18 06:45 CONCLUSION: Degenerative changes in the hips and lumbar spine. No acute fracture seen. <Farooq Munguia III - 06/04/18 10:10> Caprini VTE Risk Assessment Caprini VTE Risk Assessment: Moderate/High Risk (score >= 2) <Farooq Munguia III - 06/04/18 15:58> Brenti Risk Assessment Model: Point Value = 1 Point Value = 2 Point Value = 3 Point Value = 5 Age 41-60 Minor surgery BMI > 25 kg/m2 Swollen legs Varicose veins or History of unexplained or recurrent spontaneous Oral contraceptives or hormone replacement Sepsis (< 1 month) Serious lung disease, including pneumonia (< 1 month) Abnormal pulmonary function Acute myocardial infarction Congestive heart failure (< 1 month) History of inflammatory bowel disease Medical patient at bed rest Age 61-74 Arthroscopic surgery Major open surgery (> 45 min) Laparoscopic surgery (> 45 min) Malignancy Confined to bed (> 72 hours) Immobilizing plaster cast Central venous access Age >= 75 History of VTE Family history of VTE Factor V Leiden Prothrombin [id number] Lupus anticoagulant Anticardiolipin antibodies Elevated serum homocysteine Heparin-induced thrombocytopenia Other congenital or acquired thrombophilia Stroke (< 1 month) Elective arthroplasty Hip, pelvis, or leg fracture Acute spinal cord injury (< 1 month) <Sam Couch K - 06/04/18 19:30> Prophylaxis Regimen: Total Risk Factor Score Risk Level Prophylaxis Regimen 0-1 Low Early ambulation 2 Moderate Order ONE of the following: *Sequential Compression Device (SCD) *Heparin 5000 units SQ BID 3-4 Higher Order ONE of the following medications: *Heparin 5000 units SQ TID *Enoxaparin/Lovenox 40 mg SQ daily (WT < 150 kg, CrCl > 30 mL/min) *Enoxaparin/Lovenox 30 mg SQ daily (WT < 150 kg, CrCl > 10-29 mL/min) *Enoxaparin/Lovenox 30 mg SQ BID (WT < 150 kg, CrCl > 30 mL/min) AND/OR *Sequential Compression Device (SCD) 5 or more Highest Order ONE of the following medications: *Heparin 5000 units SQ TID (Preferred with Epidurals) *Enoxaparin/Lovenox 40 mg SQ daily (WT < 150 kg, CrCl > 30 mL/min) *Enoxaparin/Lovenox 30 mg SQ daily (WT < 150 kg, CrCl > 10-29 mL/min) *Enoxaparin/Lovenox 30 mg SQ BID (WT < 150 kg, CrCl > 30 mL/min) AND *Sequential Compression Device (SCD) <Sam Couch Nathan - 06/04/18 19:30> Assessment and Plan - Assessment (1) Depression Code(s): F32.9 - Major depressive disorder, single episode, unspecified Status : Acute (2) Polypharmacy Code(s): Z79.899 - Other terminal press operator (current) drug therapy Status: Acute (3) Hx of fracture Code(s): Z87.81 - Personal history of (healed) traumatic fracture Status: Acute (4) Dementia Code(s): F03.90 - Unspecified dementia without behavioral disturbance Status: Acute (5) Head injury Code(s): S09.90XA - Unspecified injury of head, initial encounter Status: Acute (6) Altered mental status Code(s): R41.82 - Altered mental status, unspecified Status: Acute (7) Closed fracture nasal bone Code(s): S02.2XXA - Fracture of nasal bones, initial encounter for closed fracture Status: Acute (8) Rhabdomyolysis Code(s): M62.82 - Rhabdomyolysis Status: Acute (9) Nutrition, metabolism, and development symptoms Code(s): R63.8 - Other symptoms and signs concerning food and fluid intake Status: Acute <Sam Couch Nathan - 06/04/18 19:30> (1) Depression Code(s): F32.9 - Major depressive disorder, single episode, unspecified Status : Acute (2) Polypharmacy Code(s): Z79.899 - Other terminal press operator (current) drug therapy Status: Acute (3) Hx of fracture Code(s): Z87.81 - Personal history of (healed) traumatic fracture Status: Acute (4) Dementia Code(s): F03.90 - Unspecified dementia without behavioral disturbance Status: Acute (5) Head injury Code(s): S09.90XA - Unspecified injury of head, initial encounter Status: Acute (6) Altered mental status Code(s): R41.82 - Altered mental status, unspecified Status: Acute (7) Closed fracture nasal bone Code(s): S02.2XXA - Fracture of nasal bones, initial encounter for closed fracture Status: Acute (8) Rhabdomyolysis Code(s): M62.82 - Rhabdomyolysis Status: Acute (9) Nutrition, metabolism, and development symptoms Code(s): R63.8 - Other symptoms and signs concerning food and fluid intake Status: Acute <Farooq Munguia III - 06/04/18 15:31> - Assessment and Plan 68 YO female with PMHx HTN, frequent falls s/p wrist fracture and hip fracture this year, GERD s/p recent partial colectomy following bowel obstruction with mental status changes x3 weeks and increasing dysarthria and aphasia, chronic pain with likely polypharmacy, depression and likely dementia who presents with fall, closed nasal bone fracture, AMS responsive to Narcan x2, and rhabdomyolysis. Admit for inpatient status. AMS -Pt obtunded on arrival responded to Narcan x2; last normal at 9:30 PM on 06/03 -Pt still confused and oriented to name and knows she is in hospital; abnormal neurological exam with left sided neglect and sensory deficit -CT head negative for acute infarct -MRI head w/o contrast ordered (contrast withheld due to rhabdo and concern for renal fxn) -Neurology consult on 06/05 -discontinue combo of opioids/benzos polypharmacy as above -Neuro checks -Fall precautions Fall -Hold fentanyl patch, percocet, zolpidem, and Xanax -Consider adding back a modicum of opioids/benzos to prevent acute withdrawal sxs -B12 and folate pending -PT eval -Neurology consult Nasal fracture -Oromaxillofacial surgery consult -Pain control PRN Rhabdomyolysis -1L bolus NS IVF in ED -NS IVF @ 250 mls/hr until 1800 hrs; then MIVF -Cr 1.02 on admission -BMP @ 1700; follow Cr -CK q8h x3 with goal <1000 for discharge Dysarthria/Aphasia -Neurology consult as above -ST consulted Dementia - abnormal neuro exam as above -ST consult as below -Neurology consult as above Polypharmacy -E-FORSCE checked 06/04 showing Percocet 10-325, Morphine ER, Fentanyl patch and Soma [address] Epps with current MME/day 105; and Zolpidem 10mg and Xanax 0.[address] Monet for LME/day 2.5 -Combined opioids and benzodiazepines with Narcotic score 552 and sedative score 721; overdose risk score 450; creates high risk for falls Hx of fractures -Wrist and hip fractures this year; now nasal fracture from fall -Recommend osteoporosis workup Depression -Continue home Celexa -Avoid other QTc prolonging agents Fluid: NS IVF @ 250 ml/hr due to rhabdo Electrolytes: Nutrition: NPO awaiting nursing bedside swallow GI: home PPI PPx: SCDs bilateral Tylenol PRN Holding on zofran and antiemetics due to QTc >450 ms Pt SDW Jewell Couch and Carlos <Kristinaregina IIIFarooq H - 06/04/18 15:58> - Attending Attestation The exam, history, and the medical decision-making described in the above note were completed with the assistance of the resident physician. I reviewed and agree with the findings presented. I attest that I had a [id number] encounter with the patient on the same day, and personally performed and documented my assessment and findings in the medical record. 68 y F found down by family this AM with facial bruising. brought in to ED altered and responded some to narcan. Agree with other histories and reviewed as above. on exam she answers only some questions appropriately and is really only oriented to her name. she really cannot follow commands well for a good exam. she does have some possible focal deficits like she cant do finger to nose testing with her left hand, keeps only wanting to use her right. difficult to tell with lack of cooperativity. periorbital ecchymoses and occipital ecchymoses as well. she lives with her ex and daughter but manages her own medications. daughter clearly unaware of all the central depressants that she has been prescribed as outlined above. Encephalopathy: most likely culprit is her polypharmacy, will monitor off medications, slowly add back benzos so she doesnt withdraw and give PRN opiates only starting tomorrow. will check neuro exam again tomorrow, get MRI brain. Consult neurology if needed depending on exam and findings after taking off some medications. when we can talk with her better we can evaluate need for pysch consult but no evidence of intentional OD at this point. Fall:also likely to meds but will monitor with tele as well. BUBBA: mild expect ot resolve with fluids Rhabdo: from fall and was probably down 12 hours or so. trend with IVF Nasal fracture: unlikely to need intervention, follow up outpatient get therapies to evaluate functional status may need CM consult as well. discussed extensively need to back off medications with daughter and how she may need someone to monitor this for her. <Sam Couch Nathan - 06/04/18 19:30> <Farooq Munguia III H - Last Filed: 06/04/18 15:31> (5) Head injury Qualifiers: Encounter type: initial encounter Qualified Code(s): S09.90XA - Unspecified injury of head, initial encounter (6) Altered mental status Qualifiers: Altered mental status type: somnolence Qualified Code(s): R40.0 - Somnolence (7) Closed fracture nasal bone Qualifiers: Encounter type: initial encounter Qualified Code(s): S02.2XXA - Fracture of nasal bones, initial encounter for closed fracture (8) Rhabdomyolysis Qualifiers: Rhabdomyolysis type: non-traumatic Qualified Code(s): M62.82 - Rhabdomyolysis <Sam Couch K - Last Filed: 06/04/18 19:30> (5) Head injury Qualifiers: Encounter type: initial encounter Qualified Code(s): S09.90XA - Unspecified injury of head, initial encounter (6) Altered mental status Qualifiers: Altered mental status type: somnolence Qualified Code(s): R40.0 - Somnolence (7) Closed fracture nasal bone Qualifiers: Encounter type: initial encounter Qualified Code(s): S02.2XXA - Fracture of nasal bones, initial encounter for closed fracture (8) Rhabdomyolysis Qualifiers: Rhabdomyolysis type: non-traumatic Qualified Code(s): M62.82 - Rhabdomyolysis <Farooq Munguia III - Last Filed: 06/04/18 15:31> (5) Head injury Qualifiers: Encounter type: initial encounter Qualified Code(s): S09.90XA - Unspecified injury of head, initial encounter (6) Altered mental status Qualifiers: Altered mental status type: somnolence Qualified Code(s): R40.0 - Somnolence (7) Closed fracture nasal bone Qualifiers: Encounter type: initial encounter Qualified Code(s): S02.2XXA - Fracture of nasal bones, initial encounter for closed fracture (8) Rhabdomyolysis Qualifiers: Rhabdomyolysis type: non-traumatic Qualified Code(s): M62.82 - Rhabdomyolysis <Sam Couch - Last Filed: 06/04/18 19:30> (5) Head injury Qualifiers: Encounter type: initial encounter Qualified Code(s): S09.90XA - Unspecified injury of head, initial encounter (6) Altered mental status Qualifiers: Altered mental status type: somnolence Qualified Code(s): R40.0 - Somnolence (7) Closed fracture nasal bone Qualifiers: Encounter type: initial encounter Qualified Code(s): S02.2XXA - Fracture of nasal bones, initial encounter for closed fracture (8) Rhabdomyolysis Qualifiers: Rhabdomyolysis type: non-traumatic Qualified Code(s): M62.82 - Rhabdomyolysis
[2018-06-04] MEDS ORDERED: Acetaminophen 325 MG Tablet PO PRN (11:00)
[2018-06-04] MEDS: Sod Chloride 0.9% Inj 1,000 ML IV.CONT SCH ×3 (11:00→19:33)
[2018-06-04 12:23] LABS: Vitamin B12 683 pg/mL (193-986)
[2018-06-04 16:51] LABS: CKMB Percent 1.7 % (0.0-4.0); Creatine Kinase MB 25.7 ng/mL (0.5-3.6)
--- NOTE | 2018-06-04 18:09 | ECG ---
Date Performed: 06/04/2018 Time Performed: 06:34:02 PTAGE: 68 years EKG: Sinus rhythm WITH FIRST DEGREE AV BLOCK ABNORMAL ECG PREVIOUS TRACING :11/12/2017 @20.45 Since the previous tracing, no significant change noted DOCTOR: Marcella Argueta Interpretating Date/Time 06/04/2018 18:07:13
[2018-06-04] MEDS ORDERED: Haloperidol Inj 5 MG/ML Ampul IV.PUSH PRN (18:11)
[2018-06-04] MEDS ORDERED: LORazepam 1 MG Tablet PO PRN (18:11)
[2018-06-04] MEDS: Sucralfate Liq 1 GM/10 ML UDC PO SCH ×2 (18:24→21:43)
--- NOTE | 2018-06-04 18:27 | MB ---
cc: ChapoSamy DMD DATE: 06/04/2018 REASON FOR CONSULTATION: Nasal bone fracture. HISTORY OF PRESENT ILLNESS: This is a pleasant 68-year-old female I have seen and examined this afternoon. The speech therapist was at bedside. As per report, the patient was found on the bathroom floor by her daughter at 5:30 this morning and then she was difficult to arouse and so she came over here. The patient, upon questioning, just only repeats her name again and again, Maya Wang, Maya Wang, Maya Wnag. PAST MEDICAL HISTORY: As per report anxiety, diverticulitis, hypertension, pelvic fracture TIA. PAST SURGICAL HISTORY: Abdominal surgery, appendectomy. FAMILY HISTORY: Epilepsy. SOCIAL HISTORY: Tobacco history of cigarettes. EXAMINATION: VITAL SIGNS: Temperature 97.3, pulse 61, respirations 16, blood pressure 126/58, and oxygen saturation is 100. HEENT: Pupils are equal, round, reactive to light and accommodation. Extraocular movements unable to assess, but appears normal as the patient is not following commands appropriately. There is right-sided periorbital edema and ecchymosis at this time. Little abrasions noted on the dorsum of her nose. Nose does not appear to be tender. Dried heme that is noted in the nose, but no hematoma that is noted. No crepitus is noted upon the exam. Intraorally, bite in occlusion, mandible, and maxillary mandible appears stable. CT scan of the facial bones shows a blb-huneqosplqjhn-uikcssfua nasal bone fracture. LABORATORY DATA: White count 12.4, H and H is 11.2 and 34.6 with the platelet of 276. PT is 10.0, INR is 1.0, with a PTT of 26.6. ASSESSMENT AND PLAN: This is a 68-year-old female status post being found down with a eyw-fkibddvwozlpd-wxgkgewjj nasal bone fracture. No cosmetic defect that is noted. Appears to be breathing well through the nose. At this time, there is no surgical intervention needed from oral maxillofacial surgery standpoint. I did advise the patient to followup in my office, Dr. Cowan, [facility] in 1 week, . Thank you for this consult. Please recall as required. Samy Cowan DMD RT/ll , 04:44 PM , 04:50 PM CORAL
[2018-06-04 21:35] LABS: Calcium 9.1 mg/dL (8.5-10.1); Carbon Dioxide 28.5 meq/L (21.0-32.0); Potassium 3.1 meq/L (3.5-5.1)
[2018-06-04] MEDS: Senna/Docusate Sodium 8.6/50 MG Tablet PO SCH (21:44)
[2018-06-04] MEDS: Famotidine 20 MG Tablet PO SCH (21:44)
[2018-06-05 01:13] LABS: CKMB Percent 1.3 % (0.0-4.0); Creatine Kinase MB 16.7 ng/mL (0.5-3.6)
[2018-06-05] MEDS: Sod Chloride 0.9% Inj 1,000 ML IV.CONT SCH (01:35)
[2018-06-05 07:15] LABS: Baso % (Auto) 0.4 % (0.0-2.0); Eos % (Auto) 0.2 % (0.0-4.0); Hematocrit 34.5 % (35.0-46.0); Hemoglobin 11.4 gm/dL (11.6-15.3); Lymph # (Auto) 1.4 th/mm3 (1.0-4.8); Lymph % (Auto) 24.5 % (9.0-44.0); Mean Corpuscular HGB Conc 33.1 % (32.0-36.0); Mean Corpuscular Hemoglobin 30.2 pg (27.0-34.0); Mean Corpuscular Volume 91.1 fL (80.0-100.0); Mean Platelet Volume 8.1 fL (7.0-11.0); Mono # (Auto) 0.4 th/mm3 (0.0-0.9); Neut # (Auto) 3.8 th/mm3 (1.8-7.7); Neut % (Auto) 67.9 % (16.0-70.0); Platelet Count 220 th/mm3 (150-450); Red Blood Count 3.79 mil/mm3 (4.00-5.30); Red Cell Distribution Width 16.3 % (11.6-17.2); White Blood Count 5.7 th/mm3 (4.0-11.0)
[2018-06-05 07:32] LABS: Alanine Aminotransferase 31 U/L (10-53); Anion Gap 7 meq/L (5-15); Aspartate Aminotransferase 43 U/L (15-37); Blood Urea Nitrogen 14 mg/dL (7-18); Calcium 9.1 mg/dL (8.5-10.1); Chloride 105 meq/L (98-107); Glomerular Filtration Rate 89 mL/min (>89); Glucose,Random 67 mg/dL (74-106); Potassium 3.4 meq/L (3.5-5.1); Sodium 141 meq/L (136-145)
[2018-06-05 07:34] LABS: Alkaline Phosphatase 88 U/L (45-117); Creatine Kinase 894 U/L (26-192); Total Protein 6.6 g/dL (6.4-8.2)
[2018-06-05] MEDS: Sucralfate Liq 1 GM/10 ML UDC PO SCH ×3 (07:53→17:39)
[2018-06-05 07:58] LABS: CKMB Percent 1.2 % (0.0-4.0); Creatine Kinase MB 10.5 ng/mL (0.5-3.6)
[2018-06-05] MEDS ORDERED: hydroCHLOROthiazide 25 MG Tablet PO SCH (09:00)
[2018-06-05] MEDS ORDERED: Mirtazapine 15 MG Tablet PO SCH (09:00)
--- NOTE | 2018-06-05 09:13 | MR ---
EXAM DATE: 06/05/2018 9:04 AM EST AGE/SEX: 68 years / Female INDICATIONS: CVA. Altered mental status. CLINICAL DATA: This is the patient's initial encounter. Patient reports that signs and symptoms have been present for 2 days and indicates a pain score of 0/10. MEDICAL/SURGICAL HISTORY: Hypertension. Transient ischemic attack. Diverticulitis. Appendecto my. Right wrist surgery. COMPARISON: [facility] – [place], CT HEAD W/O CONTRAST, 06/04/2018. . TECHNIQUE: Multiplanar, multisequence examination of the brain was performed without contrast. FINDINGS: Cerebrum: The ventricles are normal for age. No evidence of midline shift, mass lesion, hemorrhage or acute infarction. No extraaxial fluid collections are seen. The pituitary gland and suprasellar cistern are normal in configuration. White Matter: Scattered punctate areas of deep white matter T2 prolongation which appear fairly tim gn. Posterior Fossa: The cerebellum and brainstem are intact. The 4th ventricle is midline. The cerebel lopontine angle is unremarkable. The cerebellar tonsils are normal in position. Diffusion Imaging: No focal areas of restricted diffusion are seen. No evidence of acute infarction . Extracranial: Fluid in the right-sided mastoid air cells. Right parietal cephalohematoma near the ve rtex. CONCLUSION: No acute intracranial findings. Electronically signed by: Naveed Purvis MD 06/05/2018 9:12 AM EST
[2018-06-05] MEDS: Famotidine 20 MG Tablet PO SCH (09:54)
[2018-06-05] MEDS: Senna/Docusate Sodium 8.6/50 MG Tablet PO SCH (09:55)
[2018-06-05] MEDS ORDERED: Potassium Chloride 25 MEQ Effervescent Tablet PO ONE (12:37)
--- NOTE | 2018-06-05 15:50 | P.PNFP ---
Subjective Interval history: Ms. Wang had no acute events overnight. Today on interview she looks much better today than on admission. Her hair is combed the bruising over her right balbir-orbital area looks much better. She is alert and oriented and can follow all commands and there are no neurological deficits. She can speak intelligently, answer all questions and follow commands. She has no complaint of pain today and states that the contusion on the back of her head from the fall is not painful. We discussed at length with her and her daughter the multiple medications that she is taking for chronic pain including multiple opioids, benzodiazepines, Soma, and zolpidem, when combined with alcohol and her antidepressants significantly increase her risk of falls and respiratory depression. I gave the daughter a list of all the controlled substances that she has been prescribed over the last year. We discussed strategies to help the daughter be able to control her mother's medications going forward. The patient states that the only pain medication she likes at this point is the fentanyl patch. Patient denies chest pain, shortness of breath, nausea, vomiting, diarrhea, abdominal pain and leg pain. <Farooq Munguia III H - 06/05/18 15:50> Results - Labs Result diagrams: 06/05/18 06:50 06/05/18 06:50 <Sam Couch - 06/05/18 17:39> Abnormal lab results 06/04/18 06/04/18 06/05/18 Range/Units 19:38 23:27 06:50 RBC 3.79 L (4.00-5.30) mil/mm3 Hgb 11.4 L (11.6-15.3) gm/dL Hct 34.5 L (35.0-46.0) % Potassium 3.1 L D (3.5-5.1) meq/L Estimated GFR 74 L (>89) mL/min Random Glucose 67 L (74-106) mg/dL AST (15-37) U/L Total Creatine Kinase 1299 H (26-192) U/L CK-MB (CK-2) 16.7 H (0.5-3.6) ng/mL Albumin (3.4-5.0) g/dL 06/05/18 Range/Units 06:50 RBC (4.00-5.30) mil/mm3 Hgb (11.6-15.3) gm/dL Hct (35.0-46.0) % Potassium 3.4 L (3.5-5.1) meq/L Estimated GFR (>89) mL/min Random Glucose 67 L (74-106) mg/dL AST 43 H (15-37) U/L Total Creatine Kinase 894 H (26-192) U/L CK-MB (CK-2) 10.5 H (0.5-3.6) ng/mL Albumin 3.0 L (3.4-5.0) g/dL Short CBC 06/05/18 Range/Units 06:50 WBC 5.7 (4.0-11.0) th/mm3 Hgb 11.4 L (11.6-15.3) gm/dL Hct 34.5 L (35.0-46.0) % Plt Count 220 (150-450) th/mm3 BMP 06/04/18 06/05/18 19:38 06:50 Sodium 142 141 Potassium 3.1 L D 3.4 L Chloride 103 105 Carbon Dioxide 28.5 29.0 BUN 17 14 Creatinine 0.78 0.66 Calcium 9.1 9.1 Cardiac Enzymes 06/04/18 06/05/18 Range/Units 23:27 06:50 Total Creatine Kinase 1299 H 894 H (26-192) U/L CK-MB (CK-2) 16.7 H 10.5 H (0.5-3.6) ng/mL Liver Function 06/05/18 Range/Units 06:50 Total Bilirubin 0.5 (0.2-1.0) mg/dL AST 43 H (15-37) U/L ALT 31 (10-53) U/L Alkaline Phosphatase 88 (45-117) U/L Albumin 3.0 L (3.4-5.0) g/dL <Sam Couch - 06/05/18 17:39> Abnormal lab results 06/04/18 06/04/18 06/04/18 Range/Units 15:11 19:38 23:27 RBC (4.00-5.30) mil/mm3 Hgb (11.6-15.3) gm/dL Hct (35.0-46.0) % Potassium 3.1 L D (3.5-5.1) meq/L Estimated GFR 74 L (>89) mL/min Random Glucose 67 L (74-106) mg/dL AST (15-37) U/L Total Creatine Kinase 1555 H 1299 H (26-192) U/L CK-MB (CK-2) 25.7 H 16.7 H (0.5-3.6) ng/mL Albumin (3.4-5.0) g/dL 06/05/18 06/05/18 Range/Units 06:50 06:50 RBC 3.79 L (4.00-5.30) mil/mm3 Hgb 11.4 L (11.6-15.3) gm/dL Hct 34.5 L (35.0-46.0) % Potassium 3.4 L (3.5-5.1) meq/L Estimated GFR (>89) mL/min Random Glucose 67 L (74-106) mg/dL AST 43 H (15-37) U/L Total Creatine Kinase 894 H (26-192) U/L CK-MB (CK-2) 10.5 H (0.5-3.6) ng/mL Albumin 3.0 L (3.4-5.0) g/dL Short CBC 06/05/18 Range/Units 06:50 WBC 5.7 (4.0-11.0) th/mm3 Hgb 11.4 L (11.6-15.3) gm/dL Hct 34.5 L (35.0-46.0) % Plt Count 220 (150-450) th/mm3 BMP 06/04/18 06/05/18 19:38 06:50 Sodium 142 141 Potassium 3.1 L D 3.4 L Chloride 103 105 Carbon Dioxide 28.5 29.0 BUN 17 14 Creatinine 0.78 0.66 Calcium 9.1 9.1 Cardiac Enzymes 06/04/18 06/04/18 06/05/18 Range/Units 15:11 23:27 06:50 Total Creatine Kinase 1555 H 1299 H 894 H (26-192) U/L CK-MB (CK-2) 25.7 H 16.7 H 10.5 H (0.5-3.6) ng/mL Liver Function 06/05/18 Range/Units 06:50 Total Bilirubin 0.5 (0.2-1.0) mg/dL AST 43 H (15-37) U/L ALT 31 (10-53) U/L Alkaline Phosphatase 88 (45-117) U/L Albumin 3.0 L (3.4-5.0) g/dL <Farooq Munguia III - 06/05/18 15:50> - Imaging Impressions Head MRI 06/05/18 07:06 CONCLUSION: No acute intracranial findings. <Sam Couch K - 06/05/18 17:39> Impressions Cervical Spine CT 06/04/18 06:34 CONCLUSION: 1. Advanced degenerative changes in the cervical spine as above. The most significant abnormality is 3 mm anterolisthesis of C4 relative to C5. 2. No acute fracture of the cervical spine is identified. Face CT 06/04/18 06:34 CONCLUSION: 1. Mildly angulated fracture of the nasal bone. 2. Diffuse soft tissue swelling around the right orbit. No definite orbital fracture seen. Head CT 06/04/18 06:34 CONCLUSION: 1. No acute intracranial abnormality identified. 2. Soft tissue contusion/swelling in the scalp along the right orbit and posteriorly. . Chest X-Ray 06/04/18 06:45 CONCLUSION: No acute cardiopulmonary findings identified. Pelvis X-Ray 06/04/18 06:45 CONCLUSION: Degenerative changes in the hips and lumbar spine. No acute fracture seen. Head MRI 06/05/18 07:06 CONCLUSION: No acute intracranial findings. <Farooq Munguia III - 06/05/18 15:50> Physical Exam Vital signs: Vital Signs 06/05/18 00:00 06/05/18 04:14 06/05/18 07:07 Temperature 97.9 F 98.2 F 98.3 F Pulse Rate 79 76 76 Respiratory Rate 16 17 16 Blood Pressure 124/58 L 119/59 L 134/63 Pulse Oximetry 100 95 100 06/05/18 08:00 06/05/18 12:00 06/05/18 16:00 Temperature 97.3 F L 98.0 F Pulse Rate 98 H 86 Respiratory Rate 16 17 Blood Pressure 123/58 L 124/71 Pulse Oximetry 98 97 95 Intake & Output 06/04/18 06/05/18 06/05/18 18:59 06:59 18:59 Intake Total 1000 / 1000 840 / 840 Output Total 600 / 600 Balance 1000 / 1000 240 / 240 Weight 58.2 kg Intake: IV 1000 / 1000 600 / 600 NS Inj 1,000 ML @ 150 mls/hr IV 600 / 600 .CONT .Q6H40M [facility] Rx#:[id number] NS Inj 1,000 ML @ 1000 mls/hr 1000 / 1000 IV.SIG BOLUS [facility] Rx#:[id number] Oral 240 / 240 Output: Urine 600 / 600 Other: # Voids 2 Date of Last Bowel Movement 05/31/18 Weight On Admission 58.2 kg <Sam Couch K - 06/05/18 17:39> Vital Signs 06/04/18 16:00 06/05/18 00:00 06/05/18 04:14 Temperature 97.1 F L 97.9 F 98.2 F Pulse Rate 73 79 76 Respiratory Rate 18 16 17 Blood Pressure 129/66 124/58 L 119/59 L Pulse Oximetry 100 100 95 06/05/18 07:07 06/05/18 08:00 06/05/18 12:00 Temperature 98.3 F 97.3 F L Pulse Rate 76 98 H Respiratory Rate 16 16 Blood Pressure 134/63 123/58 L Pulse Oximetry 100 98 97 Intake & Output 06/04/18 06/05/18 06/05/18 18:59 06:59 18:59 Intake Total 1000 / 1000 840 / 840 Output Total 600 / 600 Balance 1000 / 1000 240 / 240 Weight 58.2 kg Intake: IV 1000 / 1000 600 / 600 NS Inj 1,000 ML @ 150 mls/hr IV 600 / 600 .CONT .Q6H40M [facility] Rx#:[id number] NS Inj 1,000 ML @ 1000 mls/hr 1000 / 1000 IV.SIG BOLUS [facility] Rx#:[id number] Oral 240 / 240 Output: Urine 600 / 600 Other: # Voids 2 Date of Last Bowel Movement 05/31/18 Weight On Admission 58.2 kg <Farooq Munguia III H - 06/05/18 15:50> Narrative: GENERAL: Elderly female resting in bed in [facility]. SKIN: Warm and dry. Ecchymoses over left extensor surface of forearm, right periorbital area, and posterior of head. HEAD: Normocephalic. EYES: No scleral icterus. No injection or drainage. NECK: Supple, trachea midline. No JVD or lymphadenopathy. CARDIOVASCULAR: Regular rate and rhythm without murmurs, gallops, or rubs. RESPIRATORY: Breath sounds equal bilaterally. No accessory muscle use. No wheeze, rales or rhonchi. GASTROINTESTINAL: Abdomen soft, non-tender, nondistended. Positive bowel sounds. MUSCULOSKELETAL: No cyanosis, or edema. Able to move all extremities spontaneously. Bilateral feet with bunions and chronic deformities. BACK: Nontender without obvious deformity. No CVA tenderness. Neurological: Alert and oriented x3. Normal speech. Grossly normal neurological exam. Cranial nerves II through XII intact. Patient states that she has some facial numbness/tingling on the right side. <Farooq Munguia III [facility] 06/05/18 15:50> - Urinary Catheter Management Straight Cath placed during this visit: no <Sam Couch Nathan 06/05/18 17:39> yes, but has since been removed by the nurse <Farooq Munguia III [facility] 06/05/18 15:50> Reason for continuing: Continue criteria not met <Farooq Munguia III [facility] 15:50> Insertion date: 06/04/18 <Farooq Munguia III 06/05/18 15:50> Insertion time: 08:25 <Farooq Munguia III [facility] 06/05/18 15:50> Removal date: 06/04/18 <Farooq Munguia III [facility] 06/05/18 15:50> Removal time: 08:29 <Farooq Munguia III [facility] 06/05/18 15:50> Assessment and Plan - Assessment (1) Depression Code(s): F32.9 - Major depressive disorder, single episode, unspecified Status : Acute (2) Polypharmacy Code(s): Z79.899 - Other terminal gauger (current) drug therapy Status: Acute (3) Hx of fracture Code(s): Z87.81 - Personal history of (healed) traumatic fracture Status: Acute (4) Dementia Code(s): F03.90 - Unspecified dementia without behavioral disturbance Status: Acute (5) Head injury Code(s): S09.90XA - Unspecified injury of head, initial encounter Status: Acute (6) Altered mental status Code(s): R41.82 - Altered mental status, unspecified Status: Acute (7) Closed fracture nasal bone Code(s): S02.2XXA - Fracture of nasal bones, initial encounter for closed fracture Status: Acute (8) Rhabdomyolysis Code(s): M62.82 - Rhabdomyolysis Status: Acute (9) Nutrition, metabolism, and development symptoms Code(s): R63.8 - Other symptoms and signs concerning food and fluid intake Status: Acute <Sam Couch - 06/05/18 17:39> (1) Depression Code(s): F32.9 - Major depressive disorder, single episode, unspecified Status : Acute (2) Polypharmacy Code(s): Z79.899 - Other terminal gauger (current) drug therapy Status: Acute (3) Hx of fracture Code(s): Z87.81 - Personal history of (healed) traumatic fracture Status: Acute (4) Dementia Code(s): F03.90 - Unspecified dementia without behavioral disturbance Status: Acute (5) Head injury Code(s): S09.90XA - Unspecified injury of head, initial encounter Status: Acute (6) Altered mental status Code(s): R41.82 - Altered mental status, unspecified Status: Acute (7) Closed fracture nasal bone Code(s): S02.2XXA - Fracture of nasal bones, initial encounter for closed fracture Status: Acute (8) Rhabdomyolysis Code(s): M62.82 - Rhabdomyolysis Status: Acute (9) Nutrition, metabolism, and development symptoms Code(s): R63.8 - Other symptoms and signs concerning food and fluid intake Status: Acute <Farooq Munguia III - 06/05/18 15:25> - Assessment and Plan 68 YO female with PMHx HTN, frequent falls s/p wrist fracture and hip fracture this year, GERD s/p recent partial colectomy following bowel obstruction with mental status changes x3 weeks and increasing dysarthria and aphasia, chronic pain with likely polypharmacy, depression and likely dementia who presents with fall, closed nasal bone fracture, AMS responsive to Narcan x2, and rhabdomyolysis. Admit for inpatient status. AMS - Resolved - sxs likely 2/2 polypharmacy with mixture of EtOH, benzos, opioids, zolpidem although pt denies suicide attempt -Pt obtunded on arrival responded to Narcan x2; last normal at 9:30 PM on 06/03 -AOx3 today; neurological and mental status changes resolved overnight -CT head negative for acute infarct -MRI head wnl -discontinue combo of opioids/benzos polypharmacy as above; pt states she prefers only the fentanyl patch for pain control -Fall precautions Fall -Hold fentanyl patch, percocet, zolpidem, and Xanax -Consider adding back a modicum of opioids/benzos to prevent acute withdrawal sxs -B12 and folate wnl -PT eval -Imaging showing nasal bone fracture and 3mm anterolisthesis of C4 relative to C5; there is no CVA or acute infarct Nasal fracture -Oromaxillofacial surgery will see as outpt -Pain control PRN Rhabdomyolysis - resolving; Total CK reduced from 1186->894; CKMB 22.5->10.5 -1L bolus NS IVF in ED -NS IVF @ 250 mls/hr until 1800 hrs; then MIVF -Cr 1.02 on admission -BMP @ 1700; follow Cr -CK q8h x3 with goal <1000 for discharge Dysarthria/Aphasia - resolved -ST consulted--passed swallow study Dementia - resolved -ST consult as below Polypharmacy for chronic pain -E-FORSCE checked 06/04 showing Percocet 10-325, Morphine ER, Fentanyl patch and Soma [address] Epps with current MME/day 105; and Zolpidem 10mg and Xanax 0.[address] Monet for LME/day 2.5 -Combined opioids and benzodiazepines with Narcotic score 552 and sedative score 721; overdose risk score 450; creates high risk for falls -Discussed cessation of opioid and benzodiazepines with pt and daughter; pt states if she had to have one medication it would be the fentanyl patch; encouraged sleep hygiene to overcome sleep disturbance -Encouraged PT to reduce chronic pain--will order HHF2F Hx of fractures -Wrist and hip fractures this year; now nasal fracture from fall -Recommend osteoporosis workup Depression -Continue home Celexa -Continue home Mirtazapine -Avoid other QTc prolonging agents Fluid: NS IVF @ 250 ml/hr due to rhabdo Electrolytes: Nutrition: regular diet GI: home PPI PPx: SCDs bilateral Tylenol PRN Holding on zofran and antiemetics due to QTc >450 ms Pt SDW Jewell Couch and Kris <Farooq Munguia III - 06/05/18 15:50> - Attending Attestation The exam, history, and the medical decision-making described in the above note were completed with the assistance of the resident physician. I reviewed and agree with the findings presented. I attest that I had a [id number] encounter with the patient on the same day, and personally performed and documented my assessment and findings in the medical record. discussed with dr munguia and agree with above. Her neurologic exam today is so much improved. she answer questions appropriately and has no lateralizing deficits other than some sensory disturbances which appear to be chronic. MRI of head with no concern for significant acute finding. she may have some historical mild dementia but difficult to sort out with all of the medications she was taking. discussed with patient today the importance of dramatically scaling back her centrally depressing medications and she agreed. She thinks her fentanyl patches are the most important to her so will send her out with a written list of what to take. Dr Munguia discussing with daughter but in terms of those medications will likely be the fentanyl patches only with possible a handful of her xanax to avoid withdrawal, although she has been here two days now already without issue. she needs to follow up with her PCP and make sure that they have all of her medications reconciled and know who is prescribing what. can d/c home today with help of her daughter. <Sam Couch - 06/05/18 17:39> <Farooq Munguia III H - Last Filed: 06/05/18 15:25> (5) Head injury Qualifiers: Encounter type: initial encounter Qualified Code(s): S09.90XA - Unspecified injury of head, initial encounter (6) Altered mental status Qualifiers: Altered mental status type: somnolence Qualified Code(s): R40.0 - Somnolence (7) Closed fracture nasal bone Qualifiers: Encounter type: initial encounter Qualified Code(s): S02.2XXA - Fracture of nasal bones, initial encounter for closed fracture (8) Rhabdomyolysis Qualifiers: Rhabdomyolysis type: non-traumatic Qualified Code(s): M62.82 - Rhabdomyolysis <Sam Couch - Last Filed: 06/05/18 17:39> (5) Head injury Qualifiers: Encounter type: initial encounter Qualified Code(s): S09.90XA - Unspecified injury of head, initial encounter (6) Altered mental status Qualifiers: Altered mental status type: somnolence Qualified Code(s): R40.0 - Somnolence (7) Closed fracture nasal bone Qualifiers: Encounter type: initial encounter Qualified Code(s): S02.2XXA - Fracture of nasal bones, initial encounter for closed fracture (8) Rhabdomyolysis Qualifiers: Rhabdomyolysis type: non-traumatic Qualified Code(s): M62.82 - Rhabdomyolysis <Farooq Munguia III - Last Filed: 06/05/18 15:25> (5) Head injury Qualifiers: Encounter type: initial encounter Qualified Code(s): S09.90XA - Unspecified injury of head, initial encounter (6) Altered mental status Qualifiers: Altered mental status type: somnolence Qualified Code(s): R40.0 - Somnolence (7) Closed fracture nasal bone Qualifiers: Encounter type: initial encounter Qualified Code(s): S02.2XXA - Fracture of nasal bones, initial encounter for closed fracture (8) Rhabdomyolysis Qualifiers: Rhabdomyolysis type: non-traumatic Qualified Code(s): M62.82 - Rhabdomyolysis <Sam Couch Nathan - Last Filed: 06/05/18 17:39> (5) Head injury Qualifiers: Encounter type: initial encounter Qualified Code(s): S09.90XA - Unspecified injury of head, initial encounter (6) Altered mental status Qualifiers: Altered mental status type: somnolence Qualified Code(s): R40.0 - Somnolence (7) Closed fracture nasal bone Qualifiers: Encounter type: initial encounter Qualified Code(s): S02.2XXA - Fracture of nasal bones, initial encounter for closed fracture (8) Rhabdomyolysis Qualifiers: Rhabdomyolysis type: non-traumatic Qualified Code(s): M62.82 - Rhabdomyolysis
--- NOTE | 2018-06-05 16:00 | P.DCO ---
- Physical Therapy Order: Evaluate and treat, Improve ambulation, Strength and gait training - Occupational Therapy Order: Evaluate and treat, Gross motor coordination - Home Health Nursing Order: Medical education, Signs/symptoms of disease process, Medication education-adverse effect Instructions: Pt admitted for AMS and obtunded due to polypharmacy abuse of combined opioids, benzodiazepines, zolpidem, and soma. Daughter notes that her mother has increased memory lapses and cannot recall what medications she is taking. Pt has had three falls in the past year and needs assistance at home. PT to assist with ambulation and flexibility due to complaint of chronic pain with goal to reduce or eliminate dependence on chronic opioids. Pt has walker at home and need to assess if pt uses walker. - Case Management Consult Case Management Consult-Home Health: Yes - Certification I have seen patient Maya Wang on 06/05/18. My clinical findings support the need for the requested home health care services because: Pt has trouble administering her own medications and often has memory lapses now. She is having trouble sleeping from a dysregulated sleep environment. She has frequent falls and need to assess home environment for fall safety. Limited mobility due to disease progression, Deconditioned with increased weakness, Medication compliance is questionable (suspect patient is taking inappropriate amounts of medications which increases her risk of falls and harm. ), Limited ability to care for self, Need for psychosocial assistance, Impaired cognition/judgement, High risk of falls I certify that my clinical findings support that this patient is homebound because: Her ambulation is limited due to her feet. She will be seeing Podiatry to assist, but needs help in the meantime due to medication complaince problems and frequent falls. Impaired cognitive ability/safety, Unsteady gait/balance, Need for psychosocial assistance Attestation/Additional Detail: Ms Wang needs assistance in improving her ambulation, her medication compliance and administration, education about the risks of medications, and assistance with memory lapses.
[2018-06-05 16:26] VITALS: BP 124/71; PULSE 86; RESP 17; TEMP 98; O2SAT 95
--- NOTE | 2018-06-06 06:30 | P.DS ---
Date of admission: 06/04/18 11:00 Primary care physician: Donny Monet MD Brief History from admission: Ms Wang is a 68 YO female w/PMHx HTN, recent falls resulting in pelvic and wrist fractures in the last year, HTN, GERD, and chronic pain who presents after a fall (time unknown) and pt was found down this morning naked on her floor by her daughter around 5 AM with facial and head trauma. Last known normal was by daughter and ex- last night about 9:30PM. Patient reports that she fell last night. There is no report of urinary or fecal incontinence, but pt does indicate that she did lose consciousness. History is provided mostly by her daughter who reports patient has had word finding difficulty for the past few weeks off and on that occur at no particular time of the day. Ex- reports that she will nod off throughout the day. She follows commands but cannot speak at times. These episodes last about 10 minutes at a time. She went out for her birthday and did have a chico. Daughter states her mother has a fentanyl patch prescribed by her pain management doctor (name unknown), but daughter does not think her mother has a Percocet prescription. The fentanyl patch is not in the mother's med recs; however, the Percocet is. Patient denies chest pain, SOB. She reports depression, but denies suicidal attempt. Patient may have RA and or osteoporosis but the workup is currently being completed. When pt was examined with her daughter and ex- out of the room, pt states she feels safe at home PMH: HTN GERD hip fracture after fall not requiring surgery degenerative disc disease chronic pain PSH: wrist fracture s/p placement of plate colectomy in August without ostomy due to bowel obstruction Fam Hx: mother: lung cancer father: aneurysm maternal aunt: lung cancer Allergies: adhesive ciprofloxacin Social: lives with daughter and ex- [facility] tobacco- former smoker quit 15 years ago. 1 ppd alcohol- rarely illicit drugs: none DS: Summary - Time Spent with Patient Total time spent providing and/or coordinating discharge services: - Quality: VTE Deep Vein Thrombosis/Pulmonary Embolism Present on Admission: No Exam Vital signs: Vital Signs 06/05/18 07:07 06/05/18 08:00 06/05/18 12:00 Temperature 98.3 F 97.3 F L Pulse Rate 76 98 H Respiratory Rate 16 16 Blood Pressure 134/63 123/58 L Pulse Oximetry 100 98 97 06/05/18 16:00 06/05/18 18:01 Temperature 98.0 F Pulse Rate 86 Respiratory Rate 17 Blood Pressure 124/71 Pulse Oximetry 95 95 Intake & Output 06/05/18 06/05/18 06/06/18 06:59 18:59 06:59 Intake Total 840 / 840 Output Total 600 / 600 Balance 240 / 240 Weight 58.2 kg Intake: IV 600 / 600 NS Inj 1,000 ML @ 150 mls/hr IV 600 / 600 .CONT .[id number] [facility] Rx#:[id number] Oral 240 / 240 Output: Urine 600 / 600 Other: Date of Last Bowel Movement 05/31/18 Weight On Admission 58.2 kg Results Labs on day of discharge: Labs from last 24 hours 06/05/18 06/05/18 06:50 06:50 WBC 5.7 RBC 3.79 L Hgb 11.4 L Hct 34.5 L MCV 91.1 MCH 30.2 MCHC 33.1 RDW 16.3 Plt Count 220 MPV 8.1 Neut % (Auto) 67.9 Lymph % (Auto) 24.5 [place] % (Auto) 7.0 Eos % (Auto) 0.2 Baso % (Auto) 0.4 Neut # (Auto) 3.8 Lymph # (Auto) 1.4 [place] # (Auto) 0.4 Eos # (Auto) 0.0 Baso # (Auto) 0.0 WBC Differential . Differential Comment Auto diff final Sodium 141 Potassium 3.4 L Chloride 105 Carbon Dioxide 29.0 Anion Gap 7 BUN 14 Creatinine 0.66 Estimated GFR 89 Random Glucose 67 L Calcium 9.1 Total Bilirubin 0.5 AST 43 H ALT 31 Alkaline Phosphatase 88 Total Creatine Kinase 894 H CK-MB (CK-2) 10.5 H CK-MB (CK-2) % 1.2 Total Protein 6.6 Albumin 3.0 L - Impressions ITS Impressions Cervical Spine CT 06/04/18 06:34 CONCLUSION: 1. Advanced degenerative changes in the cervical spine as above. The most significant abnormality is 3 mm anterolisthesis of C4 relative to C5. 2. No acute fracture of the cervical spine is identified. Face CT 06/04/18 06:34 CONCLUSION: 1. Mildly angulated fracture of the nasal bone. 2. Diffuse soft tissue swelling around the right orbit. No definite orbital fracture seen. Head CT 06/04/18 06:34 CONCLUSION: 1. No acute intracranial abnormality identified. 2. Soft tissue contusion/swelling in the scalp along the right orbit and posteriorly. . Chest X-Ray 06/04/18 06:45 CONCLUSION: No acute cardiopulmonary findings identified. Pelvis X-Ray 06/04/18 06:45 CONCLUSION: Degenerative changes in the hips and lumbar spine. No acute fracture seen. Head MRI 06/05/18 07:06 CONCLUSION: No acute intracranial findings. Discharge Plan - Discharge Disposition Patient Disposition: Disch /Home Health Service - Discharge Condition Condition: Stable - Discharge Order Discharge Orders: Discharge Order (Routine); Ordered 06/05/18 Ordered By: Farooq Munguia III - Discharge Details Anticipated Discharge Date: 06/05/18 - Physicians Team Primary Care Provider: Donny Monet Attending Provider: Sam Couch Other Providers: Samy Cowan DMD ; [employer],Insurance
== END 2018-06-05 18:05 | disposition home health service (06) ==
LOC: NEPC 06:27 → NEDA 06:27 → N07 11:42
PROVIDERS: ADMIT Family Medicine; ATTEND Family Medicine